=== PATIENT | male | born 1960 | race Caucasian/White ===

== ENCOUNTER → 2023-10-18 13:46 | Outpatient (REF) | payer OTHER, SELFPAY | LOC: HWRAD 13:46 | PROVIDERS: ATTENDING PHYSICIAN Internal Medicine | DX: Z87.891 Personal history of nicotine dependence (principal) | CPT/HCPCS: 71271 ==

== ENCOUNTER 2023-11-26 10:26 | Inpatient (IN) | payer OTHER, SELFPAY ==
[2023-11-26] VITALS (22 sets, daily range): BP systolic 135–179; BP diastolic 61–92; BMI 23.3
[2023-11-26 08:39] LABS: % Basophils 0.8 % (0-2); % Immature Granulocytes 0.8 % (0-0.5); % Monocytes 9.2 % (1.7-9.3); % Neutrophils 60.2 % (42.2-75.2); Absolute Eosinophils 0.3 10^3/uL (0-0.7); Absolute Lymphocytes 1.3 10^3/uL (1.2-3.4); Absolute Monocytes 0.5 10^3/uL (0.1-0.6); Absolute Neutrophils 3.2 10^3/uL (1.4-6.5); Hematocrit 36.9 % (39.0-52.0); Hemoglobin 12.7 g/dL (13.0-18.0); Mean Corp Hgb Conc. 34.4 g/dL (33.0-37.0); Mean Corpuscular Hgb 34.4 pg (27.0-31.0); Nucleated Red Blood Cells % 0 % (-); Platelet Count 189 10^3/uL (130-400); Red Blood Cell Count 3.69 10^6/uL (4.70-6.10); Red Cell Dist. Width 12.7 % (11.5-14.5); White Blood Cell Count 5.2 10^3/uL (4.8-10.8)
[2023-11-26 08:58] LABS: ALT (SGPT) 40 U/L (0-50); AST (SGOT) 48 U/L (17-59); Albumin 4.2 g/dl (3.5-5.0); Alkaline Phosphatase 82 U/L (38-126); Blood Urea Nitrogen 30 mg/dl (9-20); Calcium 9.6 mg/dl (8.4-10.2); Carbon Dioxide 26 mmol/L (22-30); Chloride 107 mmol/L (98-107); Glucose 117 mg/dl (70-99); Sodium 139 mmol/L (135-145); Total Bilirubin 0.9 mg/dl (0.2-1.3); Total Protein 6.6 g/dl (6.3-8.2); eGFR > 60.00
[2023-11-26 09:12] LABS: Troponin I 0.167 ng/ml
--- NOTE | 2023-11-26 09:34 | ED.GENMED ---
History of Present Illness
General
Chief Complaint: Chest Pain
Time Seen by Provider: 11/26/23 09:22
Travel History
Have you had any contact with someone who has COVID-19?: No
Do you have any symptoms of coronavirus? Fever > 100 degrees, chills, cough, shortness of breath, sore throat, loss of taste or smell, muscle aches, or headache?: No
History of Present Illness
History of Present Illness:
63-year-old male history of CAD with multiple cardiac stents, hypertension, hyperlipidemia, diabetes presenting with chest pressure radiating to bilateral arms starting last night. Patient states that chest pain woke patient up from sleep. Patient
states that chest pain lasted approximately 1 hour and then spontaneously resolved. Patient states that chest pain returned 3 times prompting ED evaluation. Patient states over the past 2 to 3 weeks he has been coming more short of breath with
exertion, better with rest. Patient denies any shortness of breath currently. Patient reports 3 out of 10 chest pain currently. Patient denies fever, chills, cough, or lower extremity swelling. Patient states that he feels overall fatigued.
notes that patient is having intermittent chest pain for the past 1 to 2 weeks but today was worse prompting ED evaluation. Cardiology [facility]
Past History
Past History
ED Past Medical History: CAD, Hypercholesterolemia and Other (sleep apnea)
ED Past Surgical History: None and Cardiac
Social History
Tobacco: Smoker
Alcohol: Binge drinker (Richie 12 drinks per week)
Personal:
Living: with family
Employment: Employed
Family History
Family History: Early CAD
Phy Exam
Physical Exam
Physical Exam:
General: Alert, no acute distress
Head: NCAT
Eyes: clear conjunctiva
Neck: supple
Cardiac: regular rate and rhythm, no murmur
Lungs: clear to auscultation bilaterally. No wheezes, rales, or rhonchi. Speaking full unlabored sentences. No respiratory distress.
Abdomen: soft, nondistended nontender. No rebound or guarding.
MSK: no lower extremity edema bilaterally. No deformity
Skin: warm, dry. Not diaphoretic
Neuro: Alert and oriented x3. no focal deficits
Scores
Heart Score for Chest Pain Patients
STEMI patient?: No
History: Highly Suspicious
ECG: Significant ST-Depression
Age: >45 - <65 years
Risk Factors: >/= 3 Risk Factors or History of CAD
Troponin: >/= 3 x Normal Limit
Heart Score for Chest Pain Patients: 9
Heart Score Risk: 72.7 % MACE over next 6 weeks
Course
Orders/Labs/Results
Orders:
Orders
11/26/23 08:11
Electrocardiogram (*1) Urgent
Reason for Study: Chest Pain
EKG- Treatment ONCE
11/26/23 08:29
Complete Blood Count/With Diff Urgent
Comprehensive Metabolic Panel Urgent
Troponin I Urgent
11/26/23 09:30
Aspirin 325 mg PO NOW STA
Nitroglycerin Sublingual [Nitrostat (Sublingual)] 0.4 mg SL [id number] PRN
11/26/23 09:34
Nitroglycerin Sublingual [Nitrostat (Sublingual)] 0.4 mg .ROUTE .STK-MED ONE
CXR [CR Chest Portable - 1 View] Urgent
Comment:
Reason For Exam: chest pain
Reason Study Needs to be Portable: Patient Unstable
11/26/23 09:36
Protime/PTT Urgent
11/26/23 09:45
Heparin 4,000 units IV NOW STA
Heparin 78260 Units/250 ml 25,000 units in 250 ml IV PER PROTOCOL
Weight to be used for heparin protocol in kilograms (kg):: 71.5
Protocol:: Cardiac Tx/Acute Coronary
PTT Goal Range to be used:: PTT 73 to 111 seconds
Order type:: Initial
INITIAL Infusion Dose (UNITS/KG/hr) & then follow protocol:: 12 units/kg/hr
Infusion Dose in UNITS/hr & then follow protocol (UNITS/hr):: 850
INFUSION RATE in mL/hr & then follow protocol (mL/hr):: 8.5
PTT less than or equal to 64 seconds:: Increase rate by 200 units/hr (+ 2 mL/hr)
PTT 64.1 to 72.9 seconds:: Increase rate by 100 units/hr (+ 1 mL/hr)
PTT 73 to 111 seconds:: Target Range. No change in rate.
PTT 111.1 to 130.9 seconds:: Decrease rate by 100 units/hr (- 1 mL/hr)
PTT 131 to 199.9 seconds:: HOLD for 1 hr. Then decrease rate by 200 units/hr (- 2 mL/hr)
PTT greater than or equal to 200 seconds:: HOLD for 2 hrs & Notify Provider. Then decrease by 200 units/hr (-
2 mL/hr)
Lab follow-up:: Each change, PTT q6h until 2 consecutive are therapeutic. Then PTT
daily.
Nursing to Place Non Medication Order As Directed
Physician Order: PTT 6 hours after initial start of Heparin infusion
Above order entered?: Yes
11/26/23 09:59
Admit/Transfer Patient As Directed
Co-Sign Provider:
Level of Care: Inpatient admission
Assign to:: IVU
Physician / Group: DEANGELO, Dr. SHIVAM Medrano
Diagnosis: NSTEMI
Reason for Hospitalization: NSTEMI
Expected length of stay greater than two midnights?: Yes
ELOS- Estimated Length of Stay in days: 2
I certify the patient meets the requirements for IP care: Yes
11/26/23 10:04
Code Status As Directed
Resuscitation Status: Full Code
Abnormal Lab Results
11/26/23
08:29
RBC 3.69 L 10^6/uL
(4.70-6.10)
Hgb 12.7 L g/dL
(13.0-18.0)
Hct 36.9 L %
(39.0-52.0)
MCV 100.0 H fL
(80.0-94.0)
MCH 34.4 H pg
(27.0-31.0)
Immature Gran % 0.8 H %
(0-0.5)
BUN 30 H mg/dl
(9-20)
Glucose 117 H mg/dl
(70-99)
Troponin I 0.167 H* ng/ml
11/26/23 08:29
11/26/23 08:29
Vital Signs
Initial and Last Documented VS:
Initial Vital Signs
Temp Pulse Resp BP Pulse Ox
98.0 F 66 16 179/85 98
11/26/23 08:17 11/26/23 08:17 11/26/23 08:17 11/26/23 08:17 11/26/23 08:17
Last Documented Vital Signs
Temp Pulse Resp BP Pulse Ox
98.0 F 68 17 153/64 98
11/26/23 08:17 11/26/23 11:00 11/26/23 11:00 11/26/23 11:00 11/26/23 11:00
MDM/Problems Addressed
MDM/Problems Addressed:
Patient presents to the Emergency Department with chest pain
Number and Complexity of Problems Addressed at the Encounter
� Chronic conditions affecting care: CAD, hypertension, hyperlipidemia, diabetes
� Acute Exacerbation and/or Progression of Chronic Illness:
� Differential Diagnosis includes: NSTEMI, unstable angina,
Amount and/or Complexity of Data to be Reviewed and Analyzed
� I performed an independent evaluation of and my interpretation is:
EKG: EKG shows normal sinus rhythm at 60 bpm with IN 110 QTc 430 biphasic T waves in V2 V3, ST depression V4 V5, no STEMI
CT:
Xrays:
Laboratory Studies: Labs reviewed, troponin 0.167 concerning for NSTEMI. hemoglobin 12.7 (baseline)
Other:
� Review of other/old records reveals: Last cardiac catheterization 2019 had stents placed in RCA
� Clinical information was obtained by an independent historian:
� Prescriptions/Medications Considered but not given:
� Further testing considered but not performed:
Risk of Complications and/or Morbidity or Mortality of Patient Management
� Social Determinants of health affecting care:
� Discussion with other providers (PCP, Hospitalists, Consultants, etc):
� Escalation of care including admission/observation vs risk of discharge considered: 63-year-old male history of hypertension, hyperlipidemia, diabetes, CAD with multiple cardiac stents presenting with chest pain radiating to bilateral arms
starting last night. Patient states that symptoms last for approximately 1 hour and then spontaneously resolved. EKG ischemic with [facility] and ST depression laterally. Elevated troponin. Ordered nitro, aspirin 324mg PO, heparin. Discussed with [facility]
cardiology who agreed with current management. Recommended admission, urgent cardiac cath. Discussed with Hospitalist.
*Critical Care Note
Total Time (30-74mins, 75-104mins- exclusive of procedures): Not Applicable
ED Attending Note
-
Portions of this chart may have been created with voice recognition software.� Occasional wrong word or��sound alike� substitutions may have occurred due to the inherent limitations of voice recognition software.
Discharge Plan
Departure
Patient Disposition: Admit
Date of Disposition: 11/26/23
Time of Disposition: 10:16
Presentation/result/management discussed w/ accepting MD/DO: Hospitalist
Discharge Problem:
Non-ST elevation [place] (NSTEMI)
Interventions
Interventions:
*Risk Screen - Suicide Last Done: 11/26/23 09:25
*General Assessment Last Done: 11/26/23 09:25
*Neglect/Abuse Screening Last Done: 11/26/23 09:25
*ED COVID-19 Vaccine History Last Done: 11/26/23 08:17
ED- Cardiac Assessment Last Done: 11/26/23 09:25
[2023-11-26] MEDS: NITROSTAT (SUBLINGUAL) 0.400000000000000022 MG SL (09:35)
[2023-11-26] MEDS: ASPIRIN 325 MG PO (09:41)
[2023-11-26 09:57] LABS: INR 0.96; PT 12.6 Sec (11.4-14.6)
[2023-11-26] MEDS: HEPARIN 4000 UNITS IV (10:06)
[2023-11-26] MEDS: HEPARIN 25000 UNITS/250 ML IV ×2 (10:06→19:43)
--- NOTE | 2023-11-26 10:06 | CON.CAR ---
Addendum entered and electronically signed by Kevin Medrano MD 11/26/23 10:59:
63-year-old man with known CAD and RCA PCI's in the past, last seen by Dr. Hand in April 2023. Active smoker, SGLT2 antagonist recommended in the past. Last week he had an episode of nocturnal chest discomfort. The night prior to admission
and into the morning he had 3 episodes of discomfort all severe, typical in nature lasting for half an hour to an hour or more and presented to the emergency department. In the emergency department, increase in baseline abnormal ST and T wave
changes most notable lateral ST depression. Pain-free after 1 sublingual nitroglycerin with initial troponin of 0.167.
Allergies: None
Outpatient medications: Aspirin 81 mg a day, atorvastatin 80 mg a day, lisinopril 20 mg a day, metformin thousand twice daily, metoprolol ER 25 mg daily
PMH: Obstructive sleep apnea, CAD, history of PCI, carotid stent, central retinal artery occlusion right eye, hypertension, hypertension lipidemia, diabetes
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
FH: Noncontributory
ROS: Negative except as above
154/78, pulse 73, afebrile, head neck exam unremarkable lungs clear, soft systolic murmur at apex, abdomen benign extremities without clubbing cyanosis or edema distal pulses intact, neuro nonfocal
Chest x-ray with NAD
EKG sinus rhythm, lateral ST segment depression biphasic T waves with U waves, PAC
BUN and creatinine 30 and 0.7, potassium 5, troponin 0.167
Cardiac catheterization March 2019: Normal left main, 25% ostial LAD and proximal stenosis, luminal irregularities of RCA, proximal and mid RCA stents are patent, ulcerated mid to distal 90% stenosis by followed by 90% thrombotic stenosis. EF
58%, 4 x 38 mm Synergy stent to mid to distal RCA
Echo 2018: Mild LVH, EF 60-65%, trace MR, MAC
Assessment:
Acute coronary syndrome, possible circumflex distribution
CAD
s/p 4.0 mm and 3.75 mm Xience to proximal and mid to distal RCA 02/27/12
s/p 4.0 mm Synergy to mid to distal RCA with patent previously placed proximal and mid RCA stents by cath 04/18/19
Carotid artery disease s/p LICA stent 05/01/15
HTN
HLD
GEORGI on CPAP
Active smoker
Daily ETOH use
Plan:
He presents with ACS, known CAD with prior PCI's of RCA with nonobstructive LAD and circumflex coronary artery disease, longstanding diabetes, smoking, hypertension, hyperlipidemia. Will proceed with cardiac catheterization.
Aspirin and heparin.
Original Note:
Consultation
Consultation Request
Date/Time Consultation Requested: 11/26/23
Date/Time Consultation Performed: 11/26/23
Requesting Provider: Dr. Porter in the ER
Performing Provider: Dr. SHIVAM Medrano
Reason for Consultation: Chest pain, elevated Troponin
Medical History
-
History of Present Illness:
Patient came to [facility] today with chest pain and cardiology has been consulted to evaluate. Patient has a h/o CAD with ACS prompting cath and RCA PCI in 2011. Patient then had chest pain again in 2019 and by cath his previously placed RCA stents were
patent, but he had new distal RCA disease that was also then stented. Patient has not had recurrent symptoms until about 2 weeks ago when he started wit MONTIEL and chest pressure with activity that improved with rest. No resting pain or SOB. Patient
awoke with chest pain last night that resolved without specific intervention last night. Pain then recurred a few times and was ongoing when he came to [facility] this AM. Patient was given NTG SL x1 and is now pain free in [facility].
PMH:
CAD
s/p 4.0 mm and 3.75 mm Xience to proximal and mid to distal RCA 02/27/12
s/p 4.0 mm Synergy to mid to distal RCA with patent previously placed proximal and mid RCA stents by cath 04/18/19
Carotid artery disease s/p LICA stent 05/01/15
HTN
HLD
GEORGI on CPAP
Active smoker
Daily ETOH use
Past Medical History
Past Medical History: Other (in HPI)
Past Surgical History: Cardiac (RCA PCI 02/2012) and Other (LICA stent 03/2015)
Social History
Tobacco: Smoker
Alcohol: Daily
Drug: None
Personal:
Living: With Family
Family History
Family History: Cancer and Other (dementia, CVA)
Allergies / Home Medications
Allergy/AdvReac Type Severity Reaction Status Date / Time
No Known Drug Allergies Allergy Unknown Verified 11/26/23 08:18
�Medication �Instructions �Recorded �Confirmed �Type
aspirin 81 mg chewable tablet 81 mg PO DAILY 05/11/15 04/18/19 History
(Murtaza Chewable Low Dose Aspirin)
atorvastatin 80 mg tablet 80 mg PO HS 05/11/15 04/18/19 History
insulin detemir U-100 100 unit/mL 18 units SC HS 05/11/15 04/18/19 History
subcutaneous solution (Levemir
U-100 Insulin)
lisinopril 20 mg tablet 20 mg PO BID #180 tabs 04/18/19 Rx
metformin 500 mg tablet 1,000 mg (2 x 500 mg) PO BID ##0 04/18/19 04/18/19 Rx
metoprolol succinate 25 mg 25 mg PO DAILY 04/18/19 Rx
tablet,extended release 24 hr
ticagrelor 90 mg tablet (Brilinta) 90 mg PO BID #180 tabs 04/18/19 Rx
Review of Systems
-
History Source: Patient and Family ( sitting bedside)
All other systems: Negative unless noted
Physical Exam
Vital Signs
Temp Pulse Resp BP Pulse Ox
98.0 F 73 11 154/78 96
11/26/23 08:17 11/26/23 09:45 11/26/23 09:45 11/26/23 09:32 11/26/23 09:45
GEN: NAD. AAOx3
HEENT: EOMI, MMM
LUNGS: CTA B/L, no wheezes or rales
CV: Reg, S1/S2, 1/6 syst LSB
ABD: soft, BS+, NT, ND
EXT: No clubbing, cyanosis, lesions or edema B/L
NEURO: Gross non-focal
SKIN: Warm, dry and pink. No rash
Lab Results
11/26/23 08:29
11/26/23 08:29
Troponin I 0.167 ng/ml H* 11/26/23 08:29
Impression / Plan
-
PCP: Dr. Aria Kang
Primary supervisor grower: Dr. Hand
Assessment:
Chest pain
Elevated Troponin, likely NSTEMI
CAD
s/p 4.0 mm and 3.75 mm Xience to proximal and mid to distal RCA 02/27/12
s/p 4.0 mm Synergy to mid to distal RCA with patent previously placed proximal and mid RCA stents by cath 04/18/19
Carotid artery disease s/p LICA stent 05/01/15
HTN
HLD
GEORGI on CPAP
Active smoker
Daily ETOH use
Echo 04/18/19: Mild concentric LVH, EF 60-65%, trace MR, mild MAC
Plan:
-Patient came to [facility] today with chest pain and cardiology has been consulted to evaluate. Patient has a h/o CAD with ACS prompting cath and RCA PCI in 2011. Patient then had chest pain again in 2019 and by cath his previously placed RCA stents were
patent, but he had new distal RCA disease that was also then stented. Patient has not had recurrent symptoms until about 2 weeks ago when he started wit MONTIEL and chest pressure with activity that improved with rest. No resting pain or SOB. Patient
awoke with chest pain last night that resolved without specific intervention last night. Pain then recurred a few times and was ongoing when he came to [facility] this AM. Patient was given NTG SL x1 and is now pain free in [facility].
-Pain presents with resting pain and elevated Troponin concerning for NSTEMI. Initial Troponin 0.167, will trend
-Heparin gtt ordered
-Patient takes aspirin 81 mg daily and was ordered aspirin 325 mg PO x1 in the ER
-Outpatient dose of Toprol XL 25 mg daily ordered, follow tele, resting HR in the ER is 66 in SR
-ECG reviewed by me with lateral ST depressions
-Preliminary orders placed including for basal bolus insulin protocol and HgbA1c. Metformin will be held for cath
-Check CVE in AM. Cont atorvastatin 80 mg daily
-Cre and BP stable, cont usual dose of lisinopril 20 mg BID
-Check echo, ordered
[2023-11-26 10:10] LABS: APTT 24.1 Sec (23.4-35.0)
--- NOTE | 2023-11-26 11:22 | HPS.HSE ---
Family Physician
-
Family Physician: Aria Kang DO
Chief Complaint
-
chest pain
History of Present Illness
63-year-old male past medical history of extensive coronary artery disease is presenting from home with chest pain. Patient said he woke up from sleep with chest pain. States similar symptoms happened x 2 last week. States the chest pain lasted
approximately 1 hour and then spontaneously resolved. Chest pain reoccurred multiple times and thus he decided come into the ER. Denies any shortness of breath or lower extremity edema. Denies any PND orthopnea. Upon my examination evaluation
patient states chest pain has resolved. Does state of extreme stress at work. Does heavy lifting at work. Smokes half a pack of cigarettes daily. Drinks alcohol daily. Has history of 6 times in the past. Currently denies any nausea vomiting
headache abdominal pain. States currently he started this did not get much sleep overnight.
Medical History
Past Medical History
Past Medical History: Reports Other
Additional Past Medical History:
Primary HTN
HLD
CAD s/p stents x 6
DM
Tobacco abuse
Etoh abuse
Past Surgical History: Reports Other
Additional Past Surgical History:
CAD s/p stents
Social History
Tobacco: Smoker
Alcohol: Daily
Drug: None
Personal:
Living: With Family
Family History
Family History: Not pertinent
Allergies / Home Medications
Allergies reflects when Allergies were last updated in [facility].
Home Medications with original date entered in [facility]
Allergy/Medication List:
Allergies
Allergy/AdvReac Type Severity Reaction Status Date / Time
No Known Drug Allergies Allergy Unknown Verified 11/26/23 08:18
Home Medications
aspirin 81 mg chewable tablet (Murtzaa Chewable Low Dose Aspirin) 81 mg PO DAILY 05/11/15
atorvastatin 80 mg tablet 80 mg PO HS 05/11/15
lisinopril 20 mg tablet 20 mg PO BID #180 tabs 04/18/19
metformin 500 mg tablet 1,000 mg (2 x 500 mg) PO BID ##0 04/18/19
metoprolol succinate 25 mg tablet,extended release 24 hr 25 mg PO DAILY 04/18/19
Review of Systems
-
History Source: Patient and Family
A 12 point ROS was completed and negative except as noted: Yes
Physical Exam
Vital Signs
Vital Signs
Temp Pulse Resp BP Pulse Ox
98.0 F 68 17 153/64 98
11/26/23 08:17 11/26/23 11:00 11/26/23 11:00 11/26/23 11:00 11/26/23 11:00
Physical Exam
General: Well Developed, Well Nourished and No Apparent Distress
HEENT: NormoCephalic, Moist mucous membranes and Atraumatic
Respiratory: Clear
Cardiac: S1/S2 and Regular Rhythm; No Murmur or Rub
GI: Soft, Non Tender, Non Distended and Normal Bowel Sounds; No Organomegaly
Rectal: Deferred by Provider
Musculoskeletal: No Clubbing, No Cyanosis and No Edema
Skin: No Rash
Neuro: Awake, AO x 3, No Motor Deficits and Nonfocal/grossly intact
Psych: Calm
Laboratory Results
-
11/26/23 08:29
11/26/23 08:29
Laboratory Results
PT 12.6 Sec (11.4-14.6) 11/26/23 09:36
INR 0.96 11/26/23 09:36
APTT 24.1 Sec (23.4-35.0) 11/26/23 09:36
Total Bilirubin 0.9 mg/dl (0.2-1.3) 11/26/23 08:29
AST 48 U/L (17-59) 11/26/23 08:29
ALT 40 U/L (0-50) 11/26/23 08:29
Alkaline Phosphatase 82 U/L (38-126) 11/26/23 08:29
Troponin I 0.167 ng/ml H* 11/26/23 08:29
Impression/Plan
-
#NSTEMI
#CAD status post stents x6
N.p.o. with plan for cardiac catheterization
Cardiac cath reported multivessel coronary artery disease
CT surgery has been consulted
Check A1c and lipid panel
As needed pain medication
Heparin per cardiology
Antiplatelet agents on hold
ECHO pending
Await CT surgery further input
#Primary hypertension
Continue lisinopril and beta-angy
#Hyperlipidemia
Continue with statin
Check lipid panel in the morning
#Diabetes mellitus type 2
Hold metformin
A1c and Accu-Cheks
#Tobacco abuse
Offered nicotine patch but patient refused
#Daily Alcohol usage
#Alcohol abuse
Alcohol withdrawal protocol
DVT prophylaxis on heparin infusion
Full code
Discussed with spouse at bedside in detail
I spent a total of 78 minutes with the patient or on the floor. More than 50% of this time involved counseling and coordination of care.
--- NOTE | 2023-11-26 13:32 | ITS.CL.CATH ---
[employer] - Catheterization
Cardiac Catheterization
Procedure Report:
CARDIAC CATHETERIZATION REPORT
Date of Procedure: 11/26/2023
Referring: Nereyda Medraon M.D.
INDICATION: Non-ST elevation myocardial infarction, known coronary artery disease.
PROCEDURE:
1. Left heart catheterization
2. Coronary angiography
ACCESS:
6 [place] right radial artery.
CATHETERS:
1. 5 [place] JR4.
2. 5 [place] JL 3.5.
HEMODYNAMIC DATA
Weight (kg): 71.2
AO (s/d/x, mmHg): 151/78/105
LV (s/x mmHg): 152/22
LEFT VENTRICULOGRAPHY: Not performed.
CORONARY ANGIOGRAPHY
Dominance: Right.
Left Main: Normal size, bifurcating vessel. There is a densely calcified, 70-80% lesion in the distal aspect of the left main leading into the origin of the LAD and circumflex.
LAD: Normal size vessel giving rise to 1 major diagonal. There is a 70% ostial lesion as an extension of the left main lesion. There are luminal irregularities elsewhere.
Ramus: Congenitally absent.
Circumflex: Normal size, nondominant vessel giving rise to 2 obtuse marginals. There is an 80% ostial lesion as an extension from the left main lesion. There are minor luminal irregularities elsewhere.
RCA: Large size, dominant vessel. The vessel is densely calcified and is flush occluded at its origin. The RPDA and distal RCA are supplied by collaterals from the LAD and circumflex.
INTERVENTION(S)
None.
Closure Device: Vascular band.
Radiation (mGy): 292.97
DAP (cm2.Gy): 16.5447
Fluoroscopy time (minutes): 4.2
Sedation time (minutes): 15
CONCLUSIONS
1. Right dominant circulation with flush occlusion of the RCA, a 70-80% lesion in the distal aspect of the left main extending into a 70% ostial LAD lesion and an 80% ostial circumflex lesion.
2. Moderately elevated filling pressures (LVEDP = 22 mmHg at 71.2 kg).
RECOMMENDATIONS:
1. Expectant management after cardiac catheterization via right radial approach.
2. Limited weight bearing on the right wrist for one week.
3. Consultation with CT surgery regarding optimal revascularization strategy.
4. Hold antiplatelet therapy in light of likely surgical strategy.
Copy to: Nereyda Medrano M.D., Jairo Hand M.D., Aria Kang D.Irish.
Jairo Cho DO, FACC, FACP
[2023-11-26] MEDS: NSS 1000 IV (13:46)
--- NOTE | 2023-11-26 14:16 | CONSULT.CT ---
Consultation
-
Date/Time Consultation Requested: 11/26/23 1400
Date/Time Consultation Performed: 11/26/23 1417
Requesting Provider: Marquis SCHOFIELD
Performing Provider: Carrillo MENSAH for Job IRBY
Reason for Consultation: CABG eval
Patient History
Physicians
Outpatient Marine Equipment Sales Engineer: Dr. Hand
Inpatient Marine Equipment Sales Engineer: Froylan Medrano
History of Present Illness
63-year-old male with past medical history significant for CAD s/p stents in RCA in 2011 and 2018, carotid artery disease status post LICA stent in 2014, HTN, HLD, GEORGI on CPAP, active smoker and daily alcohol use presented to [facility] on
11/25 with complaints of chest pain that woke him up last night a total of three times. He said each episode would last one hour and one the CP resolved he would go back to sleep. The chest pain did resolve without intervention, however, pain then
reoccurred patient came into the ER. While in the ER patient was given 1 sublingual nitro and had an elevated troponin of 0.167 with increased in baseline ST depressions. Patient was subsequently taken to the cardiac Peoplesoft Consultant by Dr. Kincaid and
found right dominant circulation with flush occlusion of the RCA, a 70-80% lesion in the distal aspect of the left main extending into a 70% ostial LAD lesion and an 80% ostial circumflex lesion. CT surgery was consulted for surgical evaluation.
Past Medical History
Past Medical History: Other
CAD
s/p 4.0 mm and 3.75 mm Xience to proximal and mid to distal RCA 02/27/12
s/p 4.0 mm Synergy to mid to distal RCA with patent previously placed proximal and mid RCA stents by cath 04/18/19
HTN
HLD
GEORGI on CPAP
Active smoker
Daily ETOH use
Past Surgical History
Past Surgical History: PCI/Stent
Carotid artery disease s/p LICA stent 05/01/15
Family History
Mother: Cause of (breast cancer)
Father: Cause of ([place]/ Dementia)
Family Medical History: CAD
Social History
Alcohol: Daily
Drug: None
Tobacco: Smoker
Personal:
Living: With Spouse
Employment: Employed
Allergies
Allergy/AdvReac Type Severity Reaction Status Date / Time
No Known Drug Allergies Allergy Unknown Verified 11/26/23 08:18
Home Medications
�Medication �Instructions �Recorded �Confirmed �Type
aspirin 81 mg chewable tablet 81 mg PO DAILY 05/11/15 11/26/23 History
(Murtaza Chewable Low Dose Aspirin)
atorvastatin 80 mg tablet 80 mg PO HS 05/11/15 11/26/23 History
lisinopril 20 mg tablet 20 mg PO BID #180 tabs 04/18/19 11/26/23 Rx
metformin 500 mg tablet 1,000 mg (2 x 500 mg) PO BID ##0 04/18/19 11/26/23 Rx
metoprolol succinate 25 mg 25 mg PO DAILY 04/18/19 11/26/23 Rx
tablet,extended release 24 hr
Review of Systems
-
History Source: Patient
General: Reports Fatigue and Sleep Disturbance
HEENT: Reports No Symptoms
Respiratory: Reports SOB and MONTIEL
Cardiac: Reports CAD
Abdomen/GI: Reports No Symptoms
: Reports No Symptoms
Musculoskeletal: Reports No Symptoms
Skin: Reports No Symptoms
Neurological: Reports No Symptoms
Vascular: Reports No Symptoms
Physical Exam
Vital Signs
Temp 98.0 F 11/26/23 08:17
Temp route: Oral 11/26/23 08:17
Pulse 55 11/26/23 14:00
Resp Rate 19 11/26/23 14:00
Blood pressure 163/74 11/26/23 14:00
Blood pressure extremity used: Left upper arm 11/26/23 13:35
Position: Lying 11/26/23 13:35
MAP (cuff-Maribel Monitor) 97 11/26/23 14:00
SaO2 98 11/26/23 14:05
Oxygen Mode of Delivery Room air 11/26/23 14:05
Acceptable pain level during hospitalization? 0 11/26/23 09:25
Can the patient verbally communicate their pain? Yes 11/26/23 14:05
Actual Weight 71.5 kg 11/26/23 09:25
Body Mass Index (BMI) 23.3 11/26/23 09:25
Labs
11/26/23 08:29
11/26/23 08:29
PT 12.6 Sec (11.4-14.6) 11/26/23 09:36
APTT 24.1 Sec (23.4-35.0) 11/26/23 09:36
Troponin I 0.167 ng/ml H* 11/26/23 08:29
Exam
General: Well Developed and Well Nourished
HEENT: Normocephalic
Respiratory: Clear
Cardiac: S1/S2
GI: Soft and Non Tender
Rectal: Deferred by Provider
Skin: Warm and Dry
Neuro: AO x 3
Lymph: No Lymphadenopathy
Psych: Calm
Assessment / Plan
-
63-year-old male with past medical history listed above presented to [facility] after multiple events of chest pain overnight. Patient was subsequently taken to the cardiac Peoplesoft Consultant in which multivessel disease was found. CT surgery was
consulted for surgical evaluation.
#CAD
-Patient's case will be discussed with attending physician. Further details regarding surgical timing intervention will be determined after attending physicians full evaluation
-Routine preoperative cardiothoracic surgery orders will be initiated.
-STS risk stratification score will be calculated after preoperative testing is complete
-Continue nitroglycerin and heparin gtt per cardiology
[2023-11-26 14:37] LABS: Glucose - Point of Care 170 mg/dl (70-99)
--- NOTE | 2023-11-26 16:01 | CM ---
Chart reviewed. Patient is independent of ADLS, lives with his in a 2 STH, 1 BENNIE, 0 DME. Patient being worked up for a CABG. Plan will be for the patient to return home with CT Transitional Care RN. Patient is refusing substance abuse
counseling. CM to follow
[2023-11-26] MEDS: NOVOLOG FLEXPEN-MODERATE RESISTANCE SC (16:42)
--- NOTE | 2023-11-26 17:54 | PTCARENOTE ---
patient arrived from clinical lab scientist with right R band intact, distal pulses palpable. monitor shows NSR, VSS., patient able to void, urine drug abuse screen obtained and sent to lab. patient placed on MSAS due to ETOH abuse and provider notified. patient
has IVF @ 107 cc/hr for 3 hours. will start IV heparin drip at 1930 tonight as ordered. 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 patient does have sleep apnea but has not worn his CPAP, due to a recall 3 years ago. patient is very
pleasant and cooperative, at bedside. oriented to room and surroundings.
[2023-11-26 18:11] LABS: Amphetamines Negative (Negative); Barbiturates Negative (Negative); Benzodiazepines Negative (Negative); Buprenorphine Negative (Negative); Cocaine Negative (Negative); Marijuana Positive (Negative); Methadone Negative (Negative); Methamphetamines Negative (Negative); Opiates Negative (Negative); Phencyclidine Negative (Negative); Tricyclic Antidepressants Negative (Negative)
--- NOTE | 2023-11-26 18:20 | PTCARENOTE ---
urine came back positive for marijuana, patient admits that he smokes as needed.
[2023-11-26] MEDS: ZESTRIL 20 MG PO (19:54)
[2023-11-26] MEDS: THIAMINE INJECTION 200 MG IV (19:54)
[2023-11-26] MEDS: TYLENOL 650 MG PO (19:54)
--- NOTE | 2023-11-26 21:52 | PTCARENOTE ---
Pt. has no complaints of chest pain / discomfort so far this shift, VSS, NSR on the monitor. Right radial cath site dressing CDI, no hematoma, palpable radial pulse. Did complain of some soreness at site and headache, Tylenol given as ordered.
Heparin drip restarted ~1929 as per order. Educated about blood thinner's purpose and need for frequent monitoring/lab work. Pt. not happy about having frequent labs drawn, encouragement given. No S&S of ETOH withdrawal, pt. currently resting
quietly.
[2023-11-26 22:07] LABS: Glucose - Point of Care 115 mg/dl (70-99)
[2023-11-26] MEDS: LIPITOR 80 MG PO (22:17)
[2023-11-27] VITALS (7 sets, daily range): BP systolic 109–176; BP diastolic 63–87
[2023-11-27 02:29] LABS: Hematocrit 34.6 % (39.0-52.0); Hemoglobin 12.2 g/dL (13.0-18.0); Mean Corp Hgb Conc. 35.3 g/dL (33.0-37.0); Mean Corpuscular Hgb 34.5 pg (27.0-31.0); Mean Corpuscular Volume 97.7 fL (80.0-94.0); Mean Platelet Volume 10.4 fL (7.4-10.4); Platelet Count 163 10^3/uL (130-400); Red Blood Cell Count 3.54 10^6/uL (4.70-6.10); Red Cell Dist. Width 12.5 % (11.5-14.5); White Blood Cell Count 4.9 10^3/uL (4.8-10.8)
[2023-11-27 02:42] LABS: APTT 36.5 Sec (23.4-35.0); INR 1.01; PT 13.1 Sec (11.4-14.6)
[2023-11-27 02:48] LABS: ALT (SGPT) 37 U/L (0-50); AST (SGOT) 42 U/L (17-59); Albumin 3.8 g/dl (3.5-5.0); Alkaline Phosphatase 72 U/L (38-126); Blood Urea Nitrogen 21 mg/dl (9-20); Calcium 9.1 mg/dl (8.4-10.2); Carbon Dioxide 21 mmol/L (22-30); Chloride 111 mmol/L (98-107); Direct Bilirubin 0.3 mg/dl (0.0-0.4); Estimated Creatinine Clearance > 125 ml/min; Glucose 112 mg/dl (70-99); HDL Cholesterol 99 mg/dl; LDL Cholesterol, Calculated 39 mg/dl; Magnesium 1.8 mg/dl (1.6-2.3); Potassium 4.4 mmol/L (3.5-5.1); Sodium 138 mmol/L (135-145); Total Bilirubin 1.3 mg/dl (0.2-1.3); Total Cholesterol 156 mg/dl (50-199); Total Protein 6.2 g/dl (6.3-8.2); Triglyceride 90 mg/dl (10-149); Very Low Density Lipoprotein 18 mg/dl (0-30); eGFR > 60.00
[2023-11-27 03:17] LABS: Troponin I 0.819 ng/ml
[2023-11-27 06:18] LABS: B.E. -1.3 mmol/L; HCO3 23.7 mmol/L (21-28); O2 Saturation % 96.7 % (94-98); PCO2 40 mmHg (35-48); PO2 76 mmHg (83-108); pH 7.38 (7.35-7.45)
[2023-11-27 06:22] LABS: O2 Therapy ROOM AIR
[2023-11-27 07:35] LABS: Glucose - Point of Care 143 mg/dl (70-99)
[2023-11-27] MEDS: NOVOLOG FLEXPEN-MODERATE RESISTANCE SC ×2 (07:54→12:44)
[2023-11-27] MEDS: TOPROL XL 25 MG PO (08:26)
[2023-11-27] MEDS: LOW STRENGTH ASPIRIN 81 MG PO (08:26)
[2023-11-27] MEDS: FOLVITE 1 MG PO (08:27)
[2023-11-27] MEDS: ZESTRIL 20 MG PO (08:27)
[2023-11-27] MEDS: THIAMINE INJECTION 200 MG IV ×2 (08:28→19:43)
[2023-11-27] MEDS: FLUSH (NSS) 1 FLUSH IV (08:28)
[2023-11-27 08:56] LABS: Glycohemoglobin (HgbA1c) 6.6 % (4.0-5.6)
--- NOTE | 2023-11-27 08:57 | W.PN.UPDATE ---
Update Note
Progress Note Update
Ongoing pre-op work up. Tentative surgery date is 11/28/[address] King.
--- NOTE | 2023-11-27 09:52 | PTCARENOTE ---
Received patient this morning resting in bed, at the bedside. IV heparin infusing at 1050 units/hr, patient sent for CT of the chest.
[2023-11-27 10:39] LABS: APTT 47.7 Sec (23.4-35.0)
--- NOTE | 2023-11-27 10:40 | CM ---
Chart reviewed. Patient is independent of ADLS, lives with his in a 2STH, 1 BENNIE, 0 DME. Reviewed preoperative and postoperative instructions and restrictions, along with showering guidelines. Patient is agreeable to a home visit by CT
Transitional RN. CM to follow
[2023-11-27 10:53] LABS: Troponin I 0.533 ng/ml
[2023-11-27 12:25] LABS: Glucose - Point of Care 124 mg/dl (70-99)
--- NOTE | 2023-11-27 13:13 | W.PN.CARDCBS ---
Today's Communication / Plan
-
Continue IV heparin, aspirin, Toprol, lisinopril, and atorvastatin.
Plan for bypass surgery this week
Impression / Plan
-
PCP: Dr. Aira Kang
Primary asset protection lead: Dr. Hand
Assessment:
NSTEMI
LMain dx
CAD
s/p 4.0 mm and 3.75 mm Xience to proximal and mid to distal RCA 02/27/12
s/p 4.0 mm Synergy to mid to distal RCA with patent previously placed proximal and mid RCA stents by cath 04/18/19
Carotid artery disease s/p LICA stent 05/01/15
HTN
HLD
GEORGI on CPAP
Active smoker
Daily ETOH use
Echo 04/18/19: Mild concentric LVH, EF 60-65%, trace MR, mild MAC
cath 11/25/23: 80% distal left main extending into a 70% ostial LAD and 80% circumflex lesion.
Plan:
nitriles lab technician results reviewed with patient. He was found to have an 80% left main disease. Plan will be to proceed with CT surgery evaluation for bypass surgery.
Check echocardiogram.
Continue heparin, aspirin, metoprolol, lisinopril, and atorvastatin.
Continue insulin for diabetes.
Nicotine patch offered to patient
Progress Note - Clip And Hanger Attacher
Subjective
Date of Service: November 27, 2023
Feels well with no chest pains or shortness of breath.
Objective
Labs:
11/27/23 02:22
11/27/23 02:22
Labs
Hgb 12.2 g/dL (13.0-18.0) L 11/27/23 02:22
Hct 34.6 % (39.0-52.0) L 11/27/23 02:22
Plt Count 163 10^3/uL (130-400) 11/27/23 02:22
PT 13.1 Sec (11.4-14.6) 11/27/23 02:22
INR 1.01 11/27/23 02:22
APTT 47.7 Sec (23.4-35.0) H 11/27/23 10:17
Sodium 138 mmol/L (135-145) 11/27/23 02:22
Potassium 4.4 mmol/L (3.5-5.1) 11/27/23 02:22
BUN 21 mg/dl (9-20) H 11/27/23 02:22
Creatinine 0.5 mg/dL (0.7-1.3) L 11/27/23 02:22
Glucose 112 mg/dl (70-99) H 11/27/23 02:22
Troponins
11/26/23 11/27/23 11/27/23
08:29 02:22 10:17
Troponin I 0.167 H* 0.819 H* 0.533 H* D
Vital Signs and I&O:
Vital Signs
Temp Pulse Resp BP Pulse Ox
98.6 F 63 18 157/67 99
11/27/23 07:20 11/27/23 12:52 11/27/23 12:54 11/27/23 12:52 11/27/23 12:54
Vital Signs
Temp Pulse Resp BP Pulse Ox
98.6 F 63 18 157/67 99
11/27/23 07:20 11/27/23 12:52 11/27/23 12:54 11/27/23 12:52 11/27/23 12:54
Intake & Output
11/25/23 11/26/23 11/27/23 11/28/23
06:59 06:59 06:59 06:59
Intake Total 580 / 580 480 / 480
Balance 580 / 580 480 / 480
Physical Exam
Physical Exam
GEN: No distress, awake, Ox3
HEENT: supple, anicteric, mmm
LUNGS: CTA, no wheezes/rales
CV: Reg, S1/S2, 1/6 syst LSB, no gallop
ABD: soft, BS+, NT/ND
EXT: No edema
NEURO: Gross non-focal
SKIN: No rash
--- NOTE | 2023-11-27 13:16 | W.PN.HOSP.TC ---
Today's Communication/Plan
-
With goal-directed medical therapy with aspirin, heparin, lisinopril
Adjust Lantus as seems plan for OR tentative tomorrow
Assessment / Plan
Assessment / Plan
General: Well Developed, Well Nourished and No Apparent Distress
HEENT: NormoCephalic, Moist mucous membranes and Atraumatic
Respiratory: Clear
Cardiac: S1/S2 and Regular Rhythm; No Murmur or Rub
GI: Soft, Non Tender, Non Distended and Normal Bowel Sounds; No Organomegaly
Musculoskeletal: No Clubbing, No Cyanosis and No Edema
Skin: No Rash
Neuro: Awake, AO x 3, No Motor Deficits and Nonfocal/grossly intact
Psych: Calm
#NSTEMI
#CAD status post stents x6
Status post cardiac catheterization with multivessel coronary artery disease
CT surgery was consulted
Preop testing ordered and started
Remains on heparin infusion
Echocardiogram pending
Await further CT surgery recs
Remains chest pain-free
#Primary hypertension
Continue lisinopril and beta-angy
#Hyperlipidemia
Continue with statin
LDL at 39.
#Diabetes mellitus type 2
Hold metformin
A1c is 6.6
Continue with Accu-Cheks and 10 Lantus plan for tentative OR tomorrow
#Tobacco abuse
Offered nicotine patch but patient refused
#Daily Alcohol usage
#Alcohol abuse
Alcohol withdrawal protocol
DVT prophylaxis on heparin infusion
Full code
Discussed with spouse at bedside in detail
Anticipated Discharge: > 48 hours
Subjective/Interval History
-
Date of Service: November 27, 2023
no overnight events
Objective Data
-
Labs:
Laboratory Results
11/27/23 11/27/23 11/27/23
02:22 05:58 10:17
WBC 4.9
Hgb 12.2 L
Hct 34.6 L
Plt Count 163
PT 13.1
INR 1.01
APTT 36.5 H 47.7 H
HCO3 23.7
Sodium 138
Potassium 4.4
Chloride 111 H
Carbon Dioxide 21 L
BUN 21 H
Creatinine 0.5 L
Glucose 112 H
Calcium 9.1
Total Bilirubin 1.3
AST 42
ALT 37
Alkaline Phosphatase 72
11/27/23
16:55
WBC
Hgb
Hct
Plt Count
PT
INR
APTT Pending
HCO3
Sodium
Potassium
Chloride
Carbon Dioxide
BUN
Creatinine
Glucose
Calcium
Total Bilirubin
AST
ALT
Alkaline Phosphatase
Vital Signs:
Vital Signs
Temp Pulse Resp BP Pulse Ox
98.6 F 63 18 157/67 99
11/27/23 07:20 11/27/23 12:52 11/27/23 12:54 11/27/23 12:52 11/27/23 12:54
I&O
11/26/23 11/27/23 11/28/23
06:59 06:59 06:59
Intake Total 580 / 580 480 / 480
Balance 580 / 580 480 / 480
Data Reviewed
-
Total Time Spent with Patient (in minutes): 55
--- NOTE | 2023-11-27 16:00 | W.PN.UPDATE ---
Update Note
Progress Note Update
Pleasant 63 y/o admitted with cp and nstemi
hx/o pci/stent
Pt seen and examined
present for discussion
Cath reviewed
Has left main/total rca
Needs lad/om/pda
Risks, complications, benefits and alternatives reviewed
All questions answered
Plan cabg in am pending carotid us
--- NOTE | 2023-11-27 16:43 | W.PN.UPDATE ---
Update Note
Progress Note Update
Procedure Type:�Isolated CABG
PERIOPERATIVE OUTCOME ESTIMATE %
Operative Mortality 0.922%
Morbidity & Mortality 5%
Stroke 0.947%
Renal Failure 0.464%
Reoperation 2.3%
Prolonged Ventilation 3.18%
Deep Sternal Wound Infection 0.139%
Long Hospital Stay (>14 days) 3.02%
Short Hospital Stay (<6 days)* 60.3%
Clinical Summary
Planned Surgery: Isolated CABG, Urgent, First cardiovascular surgery
Demographics: 63 year old, White, male, 71.5kg, 175cm, BMI: 23.4 kg/m�
Lab Values: Creatinine: 0.7 mg/dL, Hematocrit: 36.9%, WBC Count: 5.2 10�/�L, Platelet Count: 206742 cells/�L
PreOp Medications: FER Inhibitors/ARBs <=48 hrs
Substance Abuse: Current smoker, Alcohol use: >=8 drinks/week, Illicit Drug Use
Risk Factors / Comorbidities: Diabetes Mellitus , Hypertension, Family Hx of CAD
Pulmonary RF: Mild CLD
Vascular RF: Prior Carotid Surgery
Coronary Artery Disease: 3 vessels diseased, Left Main Stenosis >=50%, Proximal LAD Stenosis >=70%, Non-ST Elevation MO, MO: 1 to 7 Days
Valve Disease: Trivial/Trace AR, Trivial/Trace MR, Trivial/Trace TR
[2023-11-27 18:07] LABS: Glucose - Point of Care 161 mg/dl (70-99)
[2023-11-27 18:17] LABS: APTT 62.7 Sec (23.4-35.0)
[2023-11-27] MEDS: NOVOLOG FLEXPEN-MODERATE RESISTANCE 1 UNITS SC (18:19)
[2023-11-27] MEDS: HEPARIN 25000 UNITS/250 ML IV (18:22)
[2023-11-27 22:42] LABS: Glucose - Point of Care 139 mg/dl (70-99)
[2023-11-27] MEDS: LIPITOR 80 MG PO (22:58)
[2023-11-27] MEDS: LANTUS 0.100000000000000006 UNITS SC (22:58)
--- NOTE | 2023-11-27 23:55 | PTCARENOTE ---
Pt received start of shift, HR SR w/ PACs. Heparin infusing at 1450u/hr. Pt updated on plan of care for the night and what CVOR prep entails. Pt states no further questions at this time. CVOR prep completed: pt clipped, showered w/ CHG, new
gown/linens/socks, new BP cuff, bed wiped down. Pt denies any CP, SOB, or lightheadedness/dizziness. Informed to notify RN if any changes, call silver within reach.
[2023-11-28] VITALS (19 sets, daily range): BP systolic 85–172; BP diastolic 49–90; BMI 21.8
[2023-11-28 02:10] LABS: % Basophils 0.8 % (0-2); % Eosinophils 4.8 % (0-6); % Immature Granulocytes 0.8 % (0-0.5); % Lymphocytes 23.2 % (20.5-51.1); % Neutrophils 59.4 % (42.2-75.2); Absolute Eosinophils 0.3 10^3/uL (0-0.7); Absolute Lymphocytes 1.2 10^3/uL (1.2-3.4); Absolute Monocytes 0.6 10^3/uL (0.1-0.6); Absolute Neutrophils 3.1 10^3/uL (1.4-6.5); Hematocrit 34.9 % (39.0-52.0); Hemoglobin 12.2 g/dL (13.0-18.0); Mean Corpuscular Hgb 34.1 pg (27.0-31.0); Mean Corpuscular Volume 97.5 fL (80.0-94.0); Mean Platelet Volume 10.1 fL (7.4-10.4); Nucleated Red Blood Cells % 0 % (-); Platelet Count 162 10^3/uL (130-400); Red Blood Cell Count 3.58 10^6/uL (4.70-6.10); Red Cell Dist. Width 12.6 % (11.5-14.5); White Blood Cell Count 5.3 10^3/uL (4.8-10.8)
[2023-11-28 02:20] LABS: INR 1.06; PT 13.6 Sec (11.4-14.6)
[2023-11-28 02:21] LABS: APTT 71.5 Sec (23.4-35.0)
[2023-11-28 03:20] LABS: ALT (SGPT) 42 U/L (0-50); AST (SGOT) 48 U/L (17-59); Albumin 3.7 g/dl (3.5-5.0); Alkaline Phosphatase 86 U/L (38-126); Blood Urea Nitrogen 23 mg/dl (9-20); Calcium 9.6 mg/dl (8.4-10.2); Carbon Dioxide 23 mmol/L (22-30); Chloride 106 mmol/L (98-107); Estimated Creatinine Clearance > 125 ml/min; Glucose 159 mg/dl (70-99); Potassium 4.5 mmol/L (3.5-5.1); Sodium 135 mmol/L (135-145); Total Bilirubin 0.8 mg/dl (0.2-1.3); eGFR > 60.00
[2023-11-28] MEDS: MAGNESIUM OXIDE 500 MG PO (05:54)
[2023-11-28] MEDS: LOPRESSOR 25 MG PO (05:54)
[2023-11-28] MEDS: BACTROBAN 2% OINTMENT 1 APPLIC NASAL ×2 (05:54→19:17)
[2023-11-28] MEDS: PROTONIX 40 MG PO (05:54)
--- NOTE | 2023-11-28 06:28 | W.CVOR.SURPR ---
CVOR Surgeon Immed Pre Op
-
I have examined this patient prior to performance of the scheduled procedure.
The patient's condition is unchanged from the time of the dictated/written History and
Physical and the patient is able to undergo the scheduled procedure.
[2023-11-28 08:26] LABS: Urine Albumin Negative (Neg - Trace); Urine Bilirubin Negative (Negative); Urine Character Clear (Clear); Urine Color Yellow; Urine Glucose Negative (Negative); Urine Ketone Negative (Negative); Urine Leukocyte Negative (Negative); Urine Nitrite Negative (Negative); Urine Occult Blood Negative (Negative); Urine Urobilinogen Negative (Neg - 1+)
[2023-11-28 08:29] LABS: ACT+ - POC 107 Seconds (82-134)
[2023-11-28 08:36] LABS: B.E. - POC -4.5 mmol/L; Glucose - POC 150 mg/dl (65-99); HCO3 - POC 20 mmol/L (21-29); Hematocrit - POC 31 % PCV (42-52); Hemodilution- POC No; Hemoglobin Calculated - POC 10.7; Ionized Calcium - POC 1.17 mmol/L (1.12-1.27); O2 Saturation %Calculated-POC 99.7 5 (92-96); PCO2 - POC 36 mmHg (35-45); PO2 - POC 206 mmHg (80-100); POC Comment PRE; Potassium - POC 4.1 mmol/L (3.6-5.0); Sodium - POC 140 mmol/L (135-145); pH - POC 7.36 (7.35-7.45)
--- NOTE | 2023-11-28 09:17 | CM ---
Patient in OR today for planned CT Surgery.
Prior to admission, patient resides w/ spouse in a private 2 story home. Functionally, patient is indep. at baseline w/ ADLs, mobility without the use of any assisted device.
DC plan is for home w/ CT Transitional Care RN.
CM to follow.
[2023-11-28 09:46] LABS: ACT+ - POC 480 Seconds (82-134)
[2023-11-28 10:22] LABS: B.E. - POC -0.5 mmol/L; Glucose - POC 203 mg/dl (65-99); HCO3 - POC 24 mmol/L (21-29); Hematocrit - POC 25 % PCV (42-52); Hemodilution- POC Yes; Hemoglobin Calculated - POC 8.4; Ionized Calcium - POC 1.01 mmol/L (1.12-1.27); O2 Saturation %Calculated-POC 99.9 5 (92-96); PCO2 - POC 38 mmHg (35-45); PO2 - POC 336 mmHg (80-100); POC Comment CPB; Potassium - POC 4.8 mmol/L (3.6-5.0); Sodium - POC 138 mmol/L (135-145); pH - POC 7.41 (7.35-7.45)
[2023-11-28 10:24] LABS: ACT+ - POC 514 Seconds (82-134)
[2023-11-28 10:51] LABS: B.E. - POC -2.2 mmol/L; Glucose - POC 176 mg/dl (65-99); HCO3 - POC 23 mmol/L (21-29); Hematocrit - POC 25 % PCV (42-52); Hemodilution- POC Yes; Hemoglobin Calculated - POC 8.5; Ionized Calcium - POC 1.06 mmol/L (1.12-1.27); O2 Saturation %Calculated-POC 99.5 5 (92-96); PCO2 - POC 39 mmHg (35-45); PO2 - POC 169 mmHg (80-100); POC Comment REWARM; Potassium - POC 4.1 mmol/L (3.6-5.0); Sodium - POC 140 mmol/L (135-145); pH - POC 7.37 (7.35-7.45)
[2023-11-28 10:53] LABS: ACT+ - POC 462 Seconds (82-134)
[2023-11-28 11:07] LABS: ACT+ - POC 101 Seconds (82-134)
[2023-11-28 11:12] LABS: B.E. - POC -7.2 mmol/L; Glucose - POC 112 mg/dl (65-99); HCO3 - POC 19 mmol/L (21-29); Hematocrit - POC 23 % PCV (42-52); Hemodilution- POC Yes; Hemoglobin Calculated - POC 7.9; O2 Saturation %Calculated-POC 99.5 5 (92-96); PCO2 - POC 39 mmHg (35-45); PO2 - POC 190 mmHg (80-100); POC Comment POST; Potassium - POC 3.1 mmol/L (3.6-5.0); Sodium - POC 144 mmol/L (135-145); pH - POC 7.29 (7.35-7.45)
[2023-11-28 11:16] LABS: Glucose - POC 110 mg/dl (65-99); HCO3 - POC 20 mmol/L (21-29); Hematocrit - POC 25 % PCV (42-52); Hemodilution- POC Yes; Hemoglobin Calculated - POC 8.5; Ionized Calcium - POC 1.39 mmol/L (1.12-1.27); O2 Saturation %Calculated-POC 92.1 5 (92-96); PCO2 - POC 44 mmHg (35-45); PO2 - POC 73 mmHg (80-100); POC Comment POST; Potassium - POC 3.5 mmol/L (3.6-5.0); Sodium - POC 143 mmol/L (135-145); pH - POC 7.28 (7.35-7.45)
--- NOTE | 2023-11-28 11:33 | W.PN.CT.SURG ---
CT Surgery Operative Note
-
Pre-op Diagnosis: nstemi
left main cad
tobacco abuse
Post-op Diagnosis: Same
Procedure: Cabg x 3
flores- lad
joe- om
ao-svg-pda
revh
rsf
siena ligation #40 clip
Primary Surgeon: Fernando
Assisting Surgeons: Cuca
Dr Kaushal Corbett (pgy 1)
Specimen: None
Cultures: None
Complications / Blood Loss: None
Findings: Jeremias with preserved ef pre and post
Siena without clot, completely occluded post clip
good conduit
severe plaque throughout the coronary tree
[2023-11-28 11:47] LABS: B.E. - POC -2.7 mmol/L; Glucose - POC 60 mg/dl (65-99); HCO3 - POC 24 mmol/L (21-29); Hematocrit - POC 26 % PCV (42-52); Hemodilution- POC Yes; Hemoglobin Calculated - POC 8.8; O2 Saturation %Calculated-POC 93.3 5 (92-96); PCO2 - POC 50 mmHg (35-45); PO2 - POC 77 mmHg (80-100); POC Comment POST; Potassium - POC 4.2 mmol/L (3.6-5.0); Sodium - POC 144 mmol/L (135-145); pH - POC 7.29 (7.35-7.45)
[2023-11-28 12:08] LABS: Glucose - Point of Care 51 mg/dl (70-99)
[2023-11-28] MEDS: ALBUMIN 5% 250 IV (12:10)
[2023-11-28] MEDS: NSS 500 IV (12:13)
[2023-11-28] MEDS: ANCEF 10 IV ×2 (12:13)
[2023-11-28] MEDS: DEXTROSE 50% SYRINGE 12.5 GRAMS IV (12:13)
[2023-11-28] MEDS: NEURONTIN PO ×2 (12:14→15:31)
[2023-11-28] MEDS: NOVOLOG FLEXPEN SC ×2 (12:14→15:31)
[2023-11-28] MEDS: NOVOLOG FLEXPEN-MODERATE RESISTANCE SC ×2 (12:15→12:16)
[2023-11-28 12:16] LABS: B.E. -3.7 mmol/L; HCO3 22.2 mmol/L (21-28); Ionized Calcium 1.27 mMOL/L (1.15-1.33); PCO2 43 mmHg (35-48); PO2 182 mmHg (83-108); Potassium 4.3 mMOL/L (3.5-5.1); Sodium 140 mMOL/L (136-145); pH 7.32 (7.35-7.45)
[2023-11-28] MEDS: TOPROL XL PO (12:16)
[2023-11-28] MEDS: THIAMINE INJECTION IV (12:16)
[2023-11-28] MEDS: LOW STRENGTH ASPIRIN PO (12:16)
[2023-11-28] MEDS: FOLVITE PO (12:16)
[2023-11-28 12:17] LABS: O2 Therapy VENT
[2023-11-28 12:21] LABS: Glucose - Point of Care 117 mg/dl (70-99)
[2023-11-28 12:21] LABS: Hematocrit 26.7 % (39.0-52.0); Platelet Count 113 10^3/uL (130-400)
[2023-11-28 12:33] LABS: INR 1.27; PT 15.7 Sec (11.4-14.6)
[2023-11-28 12:34] LABS: APTT 29.6 Sec (23.4-35.0)
--- NOTE | 2023-11-28 12:48 | PN.DE.MGMTRT ---
Insulin Management
- -
11/28/2023 Diabetes Management Consult
Patient admitted 11/25 with chest pain, s/p cardiac cath 11/25, CABG x3 11/27. PMH CAD w multiple stents, HTN, HLD, type 2 diabetes. Prior to admission was taking metformin 1000 mg BID. A1C 6.6, cr .6, eGFR > 60 on admission.
Day of surgery, glycemic protocol insulin infusion to continue till POD 2.
Will follow
Diabetes History
- -
Type of Diabetes: 2
Pre-Admission Diabetes Regimen
11/28/23
02:03
Creatinine 0.6 L
Lab Results
Hemoglobin A1c 6.6 % (4.0-5.6) H 11/27/23 02:22
Insulin Pump Settings
IP Diabetes Regimen
11/27/23 11/27/23 11/28/23
18:05 22:40 02:03
Glucose 159 H
POC Glucose 161 H 139 H
11/28/23 11/28/23
12:06 12:19
Glucose
POC Glucose 51 L* 117 H
Meal type: Dinner
Meal type: Lunch
Amount consumed: 100%
Amount consumed: 100%
Patient Education
[2023-11-28 12:55] LABS: Glucose - Point of Care 85 mg/dl (70-99)
--- NOTE | 2023-11-28 13:00 | PTCARENOTE ---
pt received from CVOR @~1205. core temp, 95.8F, bear hugger applied. pt sedated on Precedex gtt, RASS -5. Sinus Arrhythmia on the monitor, HR 40s-70s. +rub. V-wire set to VVI 40/5. SBP 80s-140s, labile. Levophed gtt titrated for MAP as ordered.
Albumin x1 given. CVP~6. palpable pulses, no edema. pt mechanically ventilated. ETT#8.0, 23cm@lip. initial settings: SIMV 14, TV 500, PEEP 5, PS 5, FIO2 60%. POX 100%. lungs clear anteriorly. CT x3, +1 air leak in both atriums, PA Pat aware. Suction
indicator not representing continuous suction, suction adjusted. PA Pat at bedside, chest tube site assessed. Site redressed w/ Tegaderm by PA for occlusive dressing. pt abdomen s/n, hypoactive BS. Falcon in place, clear yellow urine. sternal
incision [employer], approximated. L groin puncture [employer], approximated. LLE FER bandage in place. RIJ cordis w/ slick, dressing changed. L radial [place] flushed, zeroed, and calibrated. PIV. insulin gtt per protocol. lab work drawn, EKG performed, CXR
completed. initial BS on admission to CVICU was 51, 1/2amp D50 given as order, BS increased to 117, critical glycemic protocol followed.
[2023-11-28] MEDS: TYLENOL PO (13:02)
[2023-11-28 13:04] LABS: Blood Urea Nitrogen 18 mg/dl (9-20); Estimated Creatinine Clearance 123 ml/min; Glucose 43 mg/dl (70-99)
--- NOTE | 2023-11-28 13:28 | CON.INTV ---
Consultation
Consultation Request
Date/Time Consultation Requested: 11/28/2023 - 1131
Date/Time Consultation Performed: 11/28/2023 - 125
Requesting Provider: Yovanny Thurman PA-C
Performing Provider: Dr. Soto
Reason for Consultation: s/p CABG x3
Medical History
-
Chief Complaint: Chest pain
History of Present Illness:
63-year-old male with a past medical history of CAD, DM type II and tobacco use who presents with chest pain. Chest pain woke him from sleep. It lasted 1 hour then spontaneously resolved. In the ER he was hypertensive to 179/85, SpO2 98% on room
air, pulse rate 66 and afebrile to 98 �F. Labs showed Hb 12.7, troponin 0.167, urine drug screen positive for marijuana, and CXR showed no acute cardiopulmonary process. Given his elevated troponin, he was given aspirin, nitroglycerin and started
on heparin drip in the ER. He was admitted to the IVU for further care with cardiology consulted. Left heart catheterization performed on 11/25 showing a flush occlusion of the RCA, a 70-80% lesion in the left main extending into a 70% ostial LAD,
and an 80% ostial circumflex lesion. LVEDP was also elevated at 22 mmHg. Cardiothoracic surgery was consulted. Spirometry showed mild obstructive lung disease. Today he underwent CABG x 3 with JEAN ligation with a #40 clip. There were no
complications and patient was transferred to the CVICU postoperatively, with critical care services consulted for additional management/recommendations.
When I saw the patient he was intubated on SIMV 16/500/40%/5, with peak pressure 21, breathing at 16 breaths/min and VTe of 465 mL. He has a mediastinal chest tube x1 and a left + right pleural chest tube. BP via A-line was 134/64, HR 55, bp via
NIBP was 122/71, CVP 8 and SpO2 98%. He is sedated on Precedex at 0.5 mcg/kg/hr, and on Levophed at 1mcg/min.
PMHx: Hypertension, hyperlipidemia, CAD s/p stents X6, DM type II, tobacco use disorder, alcohol use
PSHx: s/p coronary stents
Past Medical History
Past Medical History: Other (Above as per HPI)
Past Surgical History: Other (Above as per HPI)
Social History
Tobacco: Smoker
Alcohol: Daily
Drug: None
Personal:
Living: With Family
Family History
Family History: Reviewed & Not Pertinent
Allergies / Home Medications
Allergies
Allergy/AdvReac Type Severity Reaction Status Date / Time
No Known Drug Allergies Allergy Unknown Verified 11/26/23 08:18
Home Medications
�Medication �Instructions �Recorded �Confirmed �Last Taken �Type
aspirin 81 mg chewable tablet 81 mg PO DAILY Blood Clot 05/11/15 11/26/23 11/25/23 History
(Murtaza Chewable Low Dose Aspirin) Prevention/Tx
atorvastatin 80 mg tablet 80 mg PO HS High Cholesterol 05/11/15 11/26/23 11/25/23 History
lisinopril 20 mg tablet 20 mg PO BID #180 tabs 04/18/19 11/26/23 11/25/23 Rx
metformin 500 mg tablet 1,000 mg (2 x 500 mg) PO BID ##0 04/18/19 11/26/23 11/25/23 Rx
metoprolol succinate 25 mg 25 mg PO DAILY 04/18/19 11/26/23 11/25/23 Rx
tablet,extended release 24 hr
Review of Systems
-
Unable to Obtain full review of systems at this time due to: Patient Intubation
Vitals / Labs / Diagnostic Testing
Vital Signs
Temp Pulse Resp BP Pulse Ox
96.3 F L 59 16 85/56 96
11/28/23 13:00 11/28/23 12:55 11/28/23 12:58 11/28/23 12:08 11/28/23 12:58
Lab Data
11/28/23 12:06
Laboratory Results
11/27/23 11/28/23 11/28/23
17:51 02:03 08:45
PT 13.6
INR 1.06
APTT 62.7 H 71.5 H Cancelled
pH
pCO2
pO2
HCO3
O2 Delivery Level
11/28/23
12:06
PT 15.7 H
INR 1.27
APTT 29.6
pH 7.32 L
pCO2 43
pO2 182 H
HCO3 22.2
O2 Delivery Level Vent
Diagnostic Testing:
Physical Exam
-
HEENT: Normocephalic and Anicteric
Cardiovascular: S1/S2 and Peripheral Edema (Negative)
Respiratory: Wheeze (Negative), Rales (Negative), Rhonchi (Negative) and Other (Mechanical breath sounds heard bilaterally)
GI: Soft, Non Distended and Non Tender
Neurology: Other (Sedated)
Skin: Warm and Dry
General: Fever (Negative)
Assessment
-
Assessment: 63-year-old male with a past medical history of CAD, DM type II and tobacco use who presents with chest pain. Chest pain woke him from sleep. It lasted 1 hour then spontaneously resolved. In the ER he was hypertensive to 179/85, SpO2
98% on room air, pulse rate 66 and afebrile to 98 �F. Labs showed Hb 12.7, troponin 0.167, urine drug screen positive for marijuana, and CXR showed no acute cardiopulmonary process. Given his elevated troponin, he was given aspirin, nitroglycerin
and started on heparin drip in the ER. He was admitted to the IVU for further care with cardiology consulted. Left heart catheterization performed on 11/25 showing a flush occlusion of the RCA, a 70-80% lesion in the left main extending into a 70%
ostial LAD, and an 80% ostial circumflex lesion. LVEDP was also elevated at 22 mmHg. Cardiothoracic surgery was consulted. Spirometry showed mild obstructive lung disease. On 11/28/2023 he underwent CABG x 3 with JEAN ligation with a #40 clip.
There were no complications and patient was transferred to the CVICU postoperatively, with critical care services consulted for additional management/recommendations.
Chronic conditions [place]: Hypertension, hyperlipidemia, CAD s/p stents X6, DM type II, tobacco use disorder, alcohol use
Impression:
#NSTEMI with multivessel CAD including left main coronary artery s/p CABG x3 +JEAN-ligation s/p clipping (POD#0)
#Acute anemia
#Acute thrombocytopenia
#Hypoglycemia
#Tobacco Use disorder
#Marijuana use
#Alcohol use disorder
#Mild obstructive lung disease - suspicious for COPD given his tobacco use, however no emphysema seen on CT chest from 11/27/2023
Plan:
Ventilator settings reviewed
FiO2 will be weaned to keep SpO2 >90-94%
Minute ventilation will be adjusted
Arterial blood gases will be monitored
Spontaneous breathing trial will be attempted with hopeful extubation after anesthesia/sedation wear off
prn nebulized bronchodilators
Pulmonary artery catheter parameters will be followed
Pressors/antihypertensive/inotropes/diuretics will be provided as needed
Maintain MAP>65
Replete electrolytes with K>4, Mg>2
Monitor chest tube output (mediastinal x 1 + left/right pleural chest tubes)
Monitor hemoglobin
Monitor platelet count and coags
Transfuse blood product if needed
CT surgery managing chest tubes
Monitor blood sugar with goal BG 140-180
Insulin drip per protocol
Apply nicotine patch
Aspiration precautions
VAP prevention protocol
DVT prophylaxis
Early nutrition
Early mobilization
Critical care statement: A total of 46 minutes of critical care time was provided for this patient today. This includes management of ventilator, spontaneous breathing trial, arterial blood gases, pressors, of unstable vital signs, evaluation of the
patient at bedside, reviewing the patient's pertinent medical records including radiographs, microbiology, laboratory evaluations, and discussion with primary team and critical care nursing.
Data:
CXR 11-28-2023: Bibasilar linear opacities most suggestive of subsegmental atelectasis. Otherwise clear lungs
CT Chest w/o contrast 11-27-2023:
Dense coronary artery calcifications.
Linear density within the medial and superior aspect of the left lower lobe of the lung, which is smaller than on examination of October 18, 2023. This interval decrease in size is reassuring that this is postinflammatory.
[2023-11-28 14:03] LABS: Glucose - Point of Care 131 mg/dl (70-99)
[2023-11-28] MEDS: DILAUDID 0.25 MG IV (14:08)
[2023-11-28] MEDS: ZOFRAN 4 MG IV (14:08)
[2023-11-28 15:13] LABS: Glucose - Point of Care 122 mg/dl (70-99)
[2023-11-28] MEDS: OFIRMEV 100 IV (15:30)
[2023-11-28] MEDS: PACERONE PO (15:31)
--- NOTE | 2023-11-28 15:40 | PTCARENOTE ---
pt suctioned for copious amount of oral and ET secretions, clear. pt nods appropriately, GHOSH. follows commands. pt placed on CPAP trial @1500, pt washed w/ CHG wipes, gown changed, face washed. oral hygiene performed. ABG drawn.
[2023-11-28 15:46] LABS: HCO3 23.2 mmol/L (21-28); Ionized Calcium 1.26 mMOL/L (1.15-1.33); PCO2 46 mmHg (35-48); PO2 100 mmHg (83-108); Potassium 4.6 mMOL/L (3.5-5.1); pH 7.31 (7.35-7.45)
[2023-11-28 15:48] LABS: Hematocrit 27.9 % (39.0-52.0); Hemoglobin 9.6 g/dL (13.0-18.0); Platelet Count 135 10^3/uL (130-400)
[2023-11-28 16:03] LABS: Glucose - Point of Care 139 mg/dl (70-99)
[2023-11-28] MEDS: TORADOL 15 MG IV (16:36)
--- NOTE | 2023-11-28 16:58 | W.PN.CARDCBS ---
Addendum entered and electronically signed by Dennis Macedo MD 11/28/23 17:42:
I saw and examined the patient.
The Cash Applications Specialist's note was reviewed and I agree with the note.
Comment:
GEN: No distress, awake, Ox3
HEENT: supple, anicteric, mmm
LUNGS: CTA, no wheezes/rales
CV: Reg, S1/S2, no murmur/rub
ABD: soft, BS+, NT/ND
EXT: No edema
NEURO: Gross non-focal
SKIN: sternotomy
Plan:
Doing well status post CABG. Remains in sinus rhythm. Hemoglobin at 9.6.
Continue amiodarone and metoprolol.
Original Note:
Today's Communication / Plan
-
continue post op care
Impression / Plan
-
PCP: Dr. Aria Kang
Primary registered travel nurse: Dr. Hand
Assessment:
NSTEMI
[place] dx
CAD
s/p 4.0 mm and 3.75 mm Xience to proximal and mid to distal RCA 02/27/12
s/p 4.0 mm Synergy to mid to distal RCA with patent previously placed proximal and mid RCA stents by cath 04/18/19
Carotid artery disease s/p LICA stent 05/01/15
HTN
HLD
GEORGI on CPAP
Active smoker
Daily ETOH use
Echo 04/18/19: Mild concentric LVH, EF 60-65%, trace MR, mild MAC
cath 11/25/23: 80% distal left main extending into a 70% ostial LAD and 80% circumflex lesion.
ECHO 11/27/23: EF 50 to 55%, inferolateral wall hypokinetic, basal inferior akinesis, mild concentric LVH, trace MR
Plan:
-He presented with NSTEMI with peak troponin of 0.819
-Status post CABG x 3 ANTONIO�LAD, COLT�OM, AO�SVG�PDA, JEAN ligation 11/28/23
-extubated to supp O2
-off pressors
-BPs low but stable
-He has known sinus arrhythmia, follow on tele. Postop EKG sinus rhythm with prolonged QT.
-continue post op care
-asa, plavix as able. hgb 9.6
-d/w nursing
Progress Note - Management Architect
Subjective
Date of Service: November 28, 2023
no current complaints
Objective
Labs:
11/28/23 15:28
11/28/23 12:06
Labs
Hgb 9.6 g/dL (13.0-18.0) L 11/28/23 15:28
Hct 27.9 % (39.0-52.0) L 11/28/23 15:28
Plt Count 135 10^3/uL (130-400) 11/28/23 15:28
PT 15.7 Sec (11.4-14.6) H 11/28/23 12:06
INR 1.27 11/28/23 12:06
APTT 29.6 Sec (23.4-35.0) 11/28/23 12:06
Sodium 135 mmol/L (135-145) 11/28/23 02:03
Potassium 4.5 mmol/L (3.5-5.1) 11/28/23 02:03
BUN 18 mg/dl (9-20) 11/28/23 12:06
Creatinine 0.6 mg/dL (0.7-1.3) L 11/28/23 12:06
Glucose 43 mg/dl (70-99) L* 11/28/23 12:06
Troponins
11/26/23 11/27/23 11/27/23
08:29 02:22 10:17
Troponin I 0.167 H* 0.819 H* 0.533 H* D
Vital Signs and I&O:
Vital Signs
Temp Pulse Resp BP Pulse Ox
98.6 F 60 13 110/69 99
11/28/23 16:00 11/28/23 16:00 11/28/23 16:00 11/28/23 15:35 11/28/23 16:07
Vital Signs
Temp Pulse Resp BP Pulse Ox
98.6 F 60 13 110/69 99
11/28/23 16:00 11/28/23 16:00 11/28/23 16:00 11/28/23 15:35 11/28/23 16:07
Intake & Output
11/26/23 11/27/23 11/28/23 11/29/23
07:59 07:59 07:59 07:59
Intake Total 580 / 580 1207 / 1207 506.6 / 506.6
Output Total 965 / 965
Balance 580 / 580 1207 / 1207 -458.4 / -458.4
Physical Exam
Physical Exam
GEN: No distress, awake, but drowsy. on supp O2
HEENT: supple, anicteric, mmm, eomi
LUNGS: CTA B/L, no wheezes/rales
CV: Reg, S1/S2, no murmur, + rub
ABD: soft, BS+, NT/ND
EXT: No cyanosis, clubbing, edema
NEURO: Gross non-focal
SKIN: Warm, pink, dry. No rash. Sternotomy dressing c/d/i. CTs in place
[2023-11-28 17:02] LABS: Glucose - Point of Care 128 mg/dl (70-99)
--- NOTE | 2023-11-28 17:08 | PTCARENOTE ---
PHOTOGRAPHER PORTRAIT aware of ABG, extubate order placed. pt extubated @1607 to 6LNC, oriented x4, follows commands. poor effort on IS. + harsh productive cough, thick, clear secretions. pt c/o sternal pain, received PRN Toradol IVP. pt c/o numbness in L hand, PHOTOGRAPHER PORTRAIT
aware.
[2023-11-28] MEDS: LOW STRENGTH ASPIRIN 81 MG PO (17:30)
[2023-11-28] MEDS: ANCEF 5 IV (17:30)
[2023-11-28] MEDS: ROXICODONE 5 MG PO (18:35)
[2023-11-28 18:43] LABS: Glucose - Point of Care 121 mg/dl (70-99)
--- NOTE | 2023-11-28 19:45 | PTCARENOTE ---
assumed care of pt from previous RN. pt A&Ox4, in bed at time of assessment. R IJ cordis w/ SLIC. L radial a-line. all lines leveled, zeroed, flushed. SR to sinus arrhythmia on tele-monitor, HR 60s-70s. epicardial friction rub on auscultation.
palpable peripheral pulses. no edema noted. temp epicardial v-wires w/ backup settings 40/5/3. CTx3 (1 mediastinal, R & L pleural) to -20cm wall suction. intermittent air leak noted in both atriums. POX 97-100% on 2 L NC. abd s/n, hypoactive BS.
corona catheter draining clear, yellow urine. all surgical sites stable. PIV intact. see worklist for complete nursing assessment, interventions, VS, and I&Os.
[2023-11-28] MEDS: LIPITOR 80 MG PO (20:52)
[2023-11-28] MEDS: NEURONTIN 300 MG PO (20:53)
[2023-11-28] MEDS: SENOKOT-S 1 TABLET PO (20:53)
[2023-11-28] MEDS: TYLENOL 1000 MG PO (20:53)
[2023-11-28] MEDS: PACERONE 200 MG PO (20:53)
[2023-11-28 21:01] LABS: Glucose - Point of Care 113 mg/dl (70-99)
[2023-11-28] MEDS: FLEXERIL 5 MG PO (21:07)
[2023-11-28 22:53] LABS: Glucose - Point of Care 121 mg/dl (70-99)
[2023-11-28] MEDS: DILAUDID 0.5 MG IV (23:01)
[2023-11-28 23:57] LABS: Glucose - Point of Care 114 mg/dl (70-99)
[2023-11-29] VITALS (17 sets, daily range): BP systolic 90–157; BP diastolic 46–67; PULSE 66; O2SAT 97–99; BMI 22.4
--- NOTE | 2023-11-29 | PTCARENOTE ---
assessment remains unchanged. VSS. CT drainage WNL.
[2023-11-29 01:03] LABS: Glucose - Point of Care 92 mg/dl (70-99)
[2023-11-29 01:56] LABS: Glucose - Point of Care 105 mg/dl (70-99)
[2023-11-29 02:57] LABS: Glucose - Point of Care 100 mg/dl (70-99)
[2023-11-29] MEDS: ANCEF 5 IV ×2 (03:02→10:14)
[2023-11-29 03:15] LABS: Hematocrit 26.9 % (39.0-52.0); Hemoglobin 9.2 g/dL (13.0-18.0); Mean Corp Hgb Conc. 34.2 g/dL (33.0-37.0); Mean Corpuscular Hgb 34.6 pg (27.0-31.0); Mean Corpuscular Volume 101.1 fL (80.0-94.0); Mean Platelet Volume 10.7 fL (7.4-10.4); Platelet Count 128 10^3/uL (130-400); Red Blood Cell Count 2.66 10^6/uL (4.70-6.10); Red Cell Dist. Width 12.7 % (11.5-14.5); White Blood Cell Count 6.7 10^3/uL (4.8-10.8)
[2023-11-29 03:34] LABS: Blood Urea Nitrogen 21 mg/dl (9-20); Calcium 8.8 mg/dl (8.4-10.2); Carbon Dioxide 23 mmol/L (22-30); Chloride 110 mmol/L (98-107); Estimated Creatinine Clearance 123 ml/min; Glucose 99 mg/dl (70-99); Potassium 4.4 mmol/L (3.5-5.1); Sodium 141 mmol/L (135-145); eGFR > 60.00
--- NOTE | 2023-11-29 04:00 | PTCARENOTE ---
assessment remains unchanged. VSS. Sinus arrhythmia-SR on tele-monitor. HR 60s. POX 99% on [address] drainage WNL. AM labs collected and sent.
--- NOTE | 2023-11-29 04:56 | W.PN.CT ---
Today's Communication / Plan
-
-pod #1
-no issues overnight
-drips: insulin. Levo is off
-CT output: med 90/260, b/l pleur 80/260 in 12/24 hrs
-deline
-continue insulin
-d/c Falcon
-will d/c med CT and bulb pleurals
-ordered Nicotine patch
-watch for DT
-current meds (ASA, Plavix, Lipitor, Lopressor, Amio, Protonix)
-encourage IS, OOB
Assessment / Plan
-
- NSTEMI/LM-CAD - s/p Cabg x 3 (Lovett-Lad, Ashlyn 'y-graft off Lovett' to Om, Ao-svg-Pda); R ev; LAAE # [address] King on 11/28/23, pod #1
- Intraop NOA: preserved EF pre 60-65% and post 70-75%, no wma. Graciela without clot, completely occluded post clip. Severe plaque throughout the coronary tree
- CAD - s/p multiple RCA stents
- HTN/HLD
- DM II (HgA1c 6.6)
- PVD - s/p L carotid stent (patent on US 11/27/23)
- GEORGI - on CPAP
- Tobacco use (1/2 ppd, smokes pot)
- EtOH use
- Acute postop blood loss anemia- stable, no transfusion
- Acute postop thrombocytopenia
- Acute postop atelectasis
- Suspected acute postop pericarditis, + rub
- Acute postop hypovolemia with subsequent hypervolemia
Discussed patient care with: Nursing and Care Team
Subjective
Procedure
- s/p Cabg x 3 (Lovett-Lad, Ashlyn 'y-graft off Lovett' to Om, Ao-svg-Pda); R ev; LAAE # [address] King on 11/28/23
-
Date of Service: November 29, 2023
Objective Data
-
PT 15.7 Sec (11.4-14.6) H 11/28/23 12:06
INR 1.27 11/28/23 12:06
APTT 29.6 Sec (23.4-35.0) 11/28/23 12:06
Vital Signs
Vital Signs
Temp Pulse Resp BP Pulse Ox
97.2 F 64 10 125/59 99
11/29/23 01:00 11/29/23 01:00 11/29/23 01:00 11/29/23 01:00 11/29/23 01:00
CT Intake/Output/Weight
11/28/23 11/28/23 11/29/23
06:59 18:59 06:59
Intake Total 480 / 1207 553.4 / 738.5 185.1 / 738.5
Output Total 1125 / 1565 440 / 1565
Balance 480 / 1207 -571.6 / -826.5 -254.9 / -826.5
SaO2: 99
Physical Exam
-
General: Awake and AOx3
Cardiovascular: Regular rate & rhythm, No Murmurs and Rub
Respiratory: Decreased Breath Sounds
Sternum: Stable
Incision: Clean, Dry and Intact
Extremities: No Edema (1+ DP b/l)
Data Reviewed
-
Lab Results: Results Reviewed
Medications: Active Meds Reviewed
Chest X-Ray: Report Reviewed and Image Reviewed
ECG: Report Reviewed and Image Reviewed
[2023-11-29 05:17] LABS: Glucose - Point of Care 105 mg/dl (70-99)
[2023-11-29] MEDS: TORADOL 15 MG IV (05:20)
[2023-11-29] MEDS: TYLENOL 1000 MG PO ×3 (05:20→21:09)
[2023-11-29 07:09] LABS: Glucose - Point of Care 93 mg/dl (70-99)
--- NOTE | 2023-11-29 08:00 | PTCARENOTE ---
Assumed care of patient from field pipe lines supervisor RN. AAO x 3. SR w/ PAC's on monitor. Epicardial wire set to VVI 40, no pacing noted at present. Room air 95%. IS to 1000. Productive cough with thick bee sputum. Denies sob. Chest tubes x 3 to - 20 cm
suction. Air leak noted in both atrium. NO crepitus noted. Abdomen soft and non tender. Due to void. Denies urge at present. Pulses palpable. Surgical sites, approximated and intact. Insulin infusing per glycemic protocol.
--- NOTE | 2023-11-29 08:03 | PN.DE.MGMTRT ---
Insulin Management
- -
11/29/2023 Diabetes Management Consult Follow up
Patient admitted 11/25 with chest pain, s/p cardiac cath 11/25, CABG x3 11/27. PMH CAD w multiple stents, HTN, HLD, type 2 diabetes. Prior to admission was taking metformin 1000 mg BID. A1C 6.6, cr .6, eGFR > 60 on admission.
Patient follows with Dr. Le, endocrine.
POD 1, doing well, glycemic protocol insulin infusion continues. Glucose range 100 to 121 with insulin infusion @ 1.3 to 2.3. Fasting this AM 93, insulin infusing @ .6, post breakfast glucose 317, insulin infusion up to 8 units per hour.
Discussed better choices for meals. Patient states he is well controlled. Discussed starting Farxiga or Jardiance, he states it depends on cost.
Will continue insulin infusion today, assess for readiness to transition in AM.
Will ask CM to check cost of Farxiga or Jardiance.
Diabetes History
- -
Type of Diabetes: 2
Pre-Admission Diabetes Regimen
11/28/23 11/29/23
12:06 02:57
Creatinine 0.6 L 0.6 L
Lab Results
Hemoglobin A1c 6.6 % (4.0-5.6) H 11/27/23 02:22
Insulin Pump Settings
IP Diabetes Regimen
11/28/23 11/28/23 11/28/23
12:06 12:19 12:54
Glucose 43 L*
POC Glucose 51 L* 117 H 85
11/28/23 11/28/23 11/28/23
14:01 15:11 16:00
Glucose
POC Glucose 131 H 122 H 139 H
11/28/23 11/28/23 11/28/23
17:00 18:41 21:00
Glucose
POC Glucose 128 H 121 H 113 H
11/28/23 11/28/23 11/29/23
22:52 23:56 01:02
Glucose
POC Glucose 121 H 114 H 92
11/29/23 11/29/23 11/29/23
01:54 02:56 02:57
Glucose 99
POC Glucose 105 H 100 H
11/29/23 11/29/23
05:13 07:04
Glucose
POC Glucose 105 H 93
Patient Education
[2023-11-29] MEDS: PLAVIX 75 MG PO (08:40)
[2023-11-29] MEDS: FLEXERIL 5 MG PO (08:40)
[2023-11-29] MEDS: SENOKOT-S 1 TABLET PO ×2 (08:40→20:10)
[2023-11-29] MEDS: NEURONTIN 300 MG PO ×3 (08:41→21:09)
[2023-11-29] MEDS: LOW STRENGTH ASPIRIN 81 MG PO (08:41)
[2023-11-29] MEDS: PROTONIX 40 MG PO (08:42)
[2023-11-29] MEDS: PACERONE 200 MG PO ×3 (08:42→21:09)
[2023-11-29] MEDS: LOPRESSOR 12.5 MG PO ×2 (08:42→20:09)
[2023-11-29] MEDS: NOVOLOG FLEXPEN SC (08:42)
[2023-11-29] MEDS: MAGNESIUM OXIDE PO (08:42)
[2023-11-29] MEDS: BACTROBAN 2% OINTMENT 1 APPLIC NASAL ×2 (08:43→20:09)
[2023-11-29 08:48] LABS: Glucose - Point of Care 317 mg/dl (70-99)
--- NOTE | 2023-11-29 09:21 | W.PN.INTV ---
Today's Communication / Plan
Recommendations
Up OOB as tolerated
Pain control
Maintain SpO2 >90-94%
Goal BG 140-180mg/dL
Patient now CVICU�telemetry status. Cake Press Operator/Pulmonary service will now sign off. Please reconsult if there are any additional questions/concerns, or if patient's respiratory status deteriorates.
Assessment
-
Assessment: 63-year-old male with a past medical history of CAD, DM type II and tobacco use who presents with chest pain. Chest pain woke him from sleep. It lasted 1 hour then spontaneously resolved. In the ER he was hypertensive to 179/85, SpO2
98% on room air, pulse rate 66 and afebrile to 98 �F. Labs showed Hb 12.7, troponin 0.167, urine drug screen positive for marijuana, and CXR showed no acute cardiopulmonary process. Given his elevated troponin, he was given aspirin, nitroglycerin
and started on heparin drip in the ER. He was admitted to the IVU for further care with cardiology consulted. Left heart catheterization performed on 11/25 showing a flush occlusion of the RCA, a 70-80% lesion in the left main extending into a 70%
ostial LAD, and an 80% ostial circumflex lesion. LVEDP was also elevated at 22 mmHg. Cardiothoracic surgery was consulted. Spirometry showed mild obstructive lung disease. On 11/28/2023 he underwent CABG x 3 with JEAN ligation with a #40 clip.
There were no complications and patient was transferred to the CVICU postoperatively, with critical care services consulted for additional management/recommendations.
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
Impression:
#NSTEMI with multivessel CAD including left main coronary artery s/p CABG x3 +JEAN-ligation s/p clipping (POD#1)
#Acute anemia
#Acute thrombocytopenia
#Hypoglycemia - resolved
#Tobacco Use disorder
#Marijuana use
#Alcohol use disorder
#Mild obstructive lung disease - suspicious for COPD given his tobacco use, however no emphysema seen on CT chest from 11/27/2023
Plan:
Patient successfully extubated on 11/28/2023
Maintain SpO2 >90-94%
prn nebulized bronchodilators
Pulmonary artery catheter removed
Removal of right IJ cordis as per cardiothoracic surgery
Maintain MAP>65
Replete electrolytes with K>4, Mg>2
Monitor chest tube output (mediastinal chest tube removed; left/right pleural chest tubes placed to bulb today)
Monitor hemoglobin
Monitor platelet count and coags
Transfuse blood product if needed
CT surgery managing chest tubes
Monitor blood sugar with goal BG 140-180
Insulin drip to be stopped today
Start insulin SQ ISS
Apply nicotine patch
Aspiration precautions
DVT prophylaxis
Early nutrition
Early mobilization
Patient now CVICU�telemetry status. Cake Press Operator/Pulmonary service will now sign off. Thank you for allowing us to be involved in the care of this patient. Please reconsult if there are any additional questions/concerns, or if patient's
respiratory status deteriorates.
Total time spent today was 55 minutes for this encounter. Time includes reviewing laboratory test/imaging results, reviewing pertinent medical records, obtaining and reviewing medical history, performing an appropriate exam, ordering medications,
tests and procedures. Time also includes documentation of this encounter, coordinating patient care and communicating with other healthcare professionals. Total time does not include separately billed tests performed on this date of service.
Data:
CXR 11-29-2023: Interval removal of endotracheal tube; No evidence for significant pneumothorax; Improvement in bilateral lower lung atelectasis.
CXR 11-28-2023: Bibasilar linear opacities most suggestive of subsegmental atelectasis. Otherwise clear lungs
CT Chest w/o contrast 11-27-2023:
Dense coronary artery calcifications.
Linear density within the medial and superior aspect of the left lower lobe of the lung, which is smaller than on examination of October 18, 2023. This interval decrease in size is reassuring that this is postinflammatory.
Subjective Dataa
Subjective Data
Date of Service:
Date of Service: November 29, 2023
Chief Complaint: Cake Press Operator Follow Up
Subjective:
Patient seen today, he is sleepy. He is on room air breathing comfortably. Currently on insulin at 4 units/h. Heart rate 64. No acute events reported from overnight.
Review of Systems
General: Other (Negative unless mentioned above)
Objective Data
Data Reviewed
Vital Signs / I&O / Oxygen:
Vital Signs
Temp Pulse Resp BP Pulse Ox
99.4 F 74 16 90/55 95
11/29/23 08:00 11/29/23 08:00 11/29/23 08:00 11/29/23 07:00 11/29/23 08:00
Intake and Output
11/28/23 11/29/23 11/30/23
06:59 06:59 06:59
Intake Total 1207 / 1207 837.1 / 847.7 501.2 / 501.2
Output Total 1810 / 1855 65 / 65
Balance 1207 / 1207 -972.9 / -1007.3 436.2 / 436.2
SaO2 [CPAP] 98
SaO2 [SIMV] 97
SaO2 95
Nasal Cannula flow liters per 2
minute
Physical Exam
General: Respiratory Distress (negative) and Comfortable
HEENT: Normocephalic and Anicteric
Cardiovascular: S1-S2 and Peripheral Edema (negative)
Respiratory: Wheeze (negative), Crackles (bilateral), Rhonchi (negative) and Accessory Resp Muscle Use (negative)
GI: Soft, Non Distended, Non Tender and Normal Bowel Sounds
Neurology: Awake and Alert
Skin: Warm, Dry and Jaundice (negative)
Labs/Micro/Reports
Lab Data
11/29/23 02:56
11/29/23 02:57
Laboratory Results
11/28/23 11/28/23 11/28/23
08:45 12:06 15:28
PT 15.7 H
INR 1.27
APTT Cancelled 29.6
pH 7.32 L 7.31 L
pCO2 43 46
pO2 182 H 100
HCO3 22.2 23.2
O2 Delivery Level Vent
[2023-11-29 10:14] LABS: Glucose - Point of Care 226 mg/dl (70-99)
--- NOTE | 2023-11-29 10:51 | W.PN.ANS.POP ---
Anesthesia Post Operative
- Anesthesia Post Op Note
Vital Signs Stable-See Nursing Note: Yes
Airway Patent: Yes
Adequate Pain Control: Yes
Change in Mental Status: No
Current Postoperative Nausea & Vomiting: No
Anesthesia Complications: No
General Anesthetic Recall: No
Unplanned Admission: No
Post Op Hydration Adequate: Yes
--- NOTE | 2023-11-29 11:19 | PTCARENOTE ---
Assisted back to bed x2 d/t lower extremity 'chronic' weakness. sternal precautions heavily reinforced. Pt states he was unaware that he would need to abide by these. Mediastinal chest tube removed at this time, pt tolerated w/o issue. Bilateral
pleural chest tubes placed to bulb suction. Pt worried about his calorie restriction diet, states he is unsure that 1800 calories will be enough food to sustain him. Education and emotional support provided. VSS, Assessment otherwise unchanged
from prior.
--- NOTE | 2023-11-29 11:32 | CM ---
Priced both Jardiance and Farxiga thru patient's Rx otmk-[phone].
Estimated cost of Jardiance/ Farxiga would be $90/3 month supply.
Both medications require prior authorization. Prior auth# [id number]
Pt. would be eligible for free 30 d coupon + $0 co pay card (Farxiga) or $10 co pay card (Jardiance) after first month.
Will place coupon of medication of choice in chart.
TT to [facility] to update on above.
[2023-11-29 11:41] LABS: Glucose - Point of Care 120 mg/dl (70-99)
[2023-11-29] MEDS: NSS IV (13:36)
[2023-11-29] MEDS: ROXICODONE 5 MG PO (13:59)
[2023-11-29 14:00] LABS: Glucose - Point of Care 165 mg/dl (70-99)
[2023-11-29] MEDS: NOVOLOG FLEXPEN 4 UNITS SC (14:00)
--- NOTE | 2023-11-29 14:11 | PTCARENOTE ---
Pt assisted back to bed. Has not voided since corona removed this am. Denies urge. Bladder scanned for 7 ml. PO intake encouraged. Bulb drains needing frequent reconstituting. Dressing taken down Vaseline gauze applied around each tube.
Dressing reapplied. Medication administered for pain
[2023-11-29 16:38] LABS: Glucose - Point of Care 157 mg/dl (70-99)
[2023-11-29] MEDS: GLUCOPHAGE 1000 MG PO (16:39)
[2023-11-29] MEDS: NOVOLOG FLEXPEN-MODERATE RESISTANCE 1 UNITS SC (16:40)
--- NOTE | 2023-11-29 16:50 | W.PN.CARDCBS ---
Addendum entered and electronically signed by Dennis Macedo MD 11/29/23 17:18:
I saw and examined the patient.
The City Comptroller's note was reviewed and I agree with the note.
Comment:
GEN: No distress, awake, Ox3
HEENT: supple, anicteric, mmm
LUNGS: CTA, no wheezes/rales
CV: Reg, S1/S2, no murmur
ABD: soft, BS+, NT/ND
EXT: No edema
NEURO: Gross non-focal
SKIN: sternotomy
PLan:
Overall doing well. Remains in sinus rhythm. QTc stable.
Continue aspirin and Plavix.
Cont Amiodarone
Original Note:
Today's Communication / Plan
-
QTc improved on ECG
HD stable on Lopressor, outpatient dose of lisinopril on hold
Cont DAPT
Impression / Plan
-
PCP: Dr. Aria Kang
Primary microstrategy developer: Dr. Hand
Assessment:
NSTEMI, peak Troponin 0.819
CAD
s/p 4.0 mm and 3.75 mm Xience to proximal and mid to distal RCA 02/27/12
s/p 4.0 mm Synergy to mid to distal RCA with patent previously placed proximal and mid RCA stents by cath 04/18/19
flush occlusion of the RCA, a 70-80% lesion in the distal aspect of the left main extending into a 70% ostial LAD lesion and an 80% ostial circumflex lesion by cath 11/26/23
s/p CABG with ANTONIO to LAD, COLT Y-graft from the ANTONIO to OM, SVG to PDA 11/28/23
s/p JEAN ligation with #40 clip 11/28/23
Carotid artery disease s/p LICA stent 05/01/15
HTN
HLD
GEORGI on CPAP
Active smoker
Daily ETOH use
Echo 04/18/19: Mild concentric LVH, EF 60-65%, trace MR, mild MAC
ECHO 11/27/23: EF 50 to 55%, inferolateral wall hypokinetic, basal inferior akinesis, mild concentric LVH, trace MR
Plan:
-Patient with NSTEMI on admission and then found to have MV CAD by cath same day. Troponin peaked at 0.819. DAPT with aspirin and Plavix
-ECG 11/29/23 reviewed by me shows SR with PACs and lateral T wave inversions that are new compared to 11/28/23, but similar to ER ECGs on admission. QTc improved to 431
-Remains in SR on amiodarone 200 mg TID
-Pain presents with resting pain and elevated Troponin concerning for NSTEMI. Initial Troponin 0.167, will trend
-Outpatient dose of Toprol XL 25 mg daily changed to Lopressor 12.5 mg BID post-op
-LDL 39 and outpatient dose of atorvastatin 80 mg daily continued
-Outpatient dose of lisinopril 20 mg BID on hold
Progress Note - Production Control Expert
Subjective
Date of Service: November 29, 2023
He feels well
Objective
Labs:
11/29/23 02:56
11/29/23 02:57
Labs
Hgb 9.2 g/dL (13.0-18.0) L 11/29/23 02:56
Hct 26.9 % (39.0-52.0) L 11/29/23 02:56
Plt Count 128 10^3/uL (130-400) L 11/29/23 02:56
PT 15.7 Sec (11.4-14.6) H 11/28/23 12:06
INR 1.27 11/28/23 12:06
APTT 29.6 Sec (23.4-35.0) 11/28/23 12:06
Sodium 141 mmol/L (135-145) 11/29/23 02:57
Potassium 4.4 mmol/L (3.5-5.1) 11/29/23 02:57
BUN 21 mg/dl (9-20) H 11/29/23 02:57
Creatinine 0.6 mg/dL (0.7-1.3) L 11/29/23 02:57
Glucose 99 mg/dl (70-99) 11/29/23 02:57
Troponins
11/27/23 11/27/23
02:22 10:17
Troponin I 0.819 H* 0.533 H* D
Vital Signs and I&O:
Vital Signs
Temp Pulse Resp BP Pulse Ox
99.1 F 69 18 111/47 98
11/29/23 11:42 11/29/23 13:45 11/29/23 11:42 11/29/23 11:39 11/29/23 11:42
Vital Signs
Temp Pulse Resp BP Pulse Ox
99.1 F 69 18 111/47 98
11/29/23 11:42 11/29/23 13:45 11/29/23 11:42 11/29/23 11:39 11/29/23 11:42
Intake & Output
11/27/23 11/28/23 11/29/23 11/30/23
06:59 06:59 06:59 06:59
Intake Total 580 / 580 1207 / 1207 837.1 / 847.7 803.2 / 803.2
Output Total 1810 / 1855 105 / 105
Balance 580 / 580 1207 / 1207 -972.9 / -1007.3 698.2 / 698.2
--- NOTE | 2023-11-29 17:15 | PTCARENOTE ---
Sleeping soundly during routine rounds, denies pain . VSS. Chest tubes emptied and reconstituted. Assessment unchanged from prior.
--- NOTE | 2023-11-29 18:59 | PTCARENOTE ---
Bladder a second time d/t no void. Re bladder scanned for 126 ml. Encouraged to drink
--- NOTE | 2023-11-29 20:00 | PTCARENOTE ---
assumed care of pt from previous RN. pt A&Ox4, resting in chair at time of assessment. SR w/ PACs on tele-monitor, HR 60s-70s. palpable peripheral pulses. no edema noted. temp epicardial v-wires w/ backup settings VVI 40/5/2. POX 97% on RA. strong,
productive cough. R & L pleural CTs to bulb suction. air leak in L CT. abd s/n, +BS. pt DTV. will bladder scan at 2230. R IJ cordis w/ KVO. PIV intact. all surgical sites stable. see worklist for complete nursing assessment, interventions, VS, and
I&Os.
[2023-11-29] MEDS: MAGNESIUM OXIDE 500 MG PO (20:09)
[2023-11-29] MEDS: MUCINEX 600 MG PO (21:09)
[2023-11-29] MEDS: LIPITOR 80 MG PO (21:09)
[2023-11-29 21:12] LABS: Glucose - Point of Care 163 mg/dl (70-99)
[2023-11-30] VITALS (10 sets, daily range): BP systolic 99–137; BP diastolic 45–58; PULSE 53; O2SAT 96–99; BMI 22.8
--- NOTE | 2023-11-30 00:06 | PTCARENOTE ---
assessment remains unchanged. VSS. pt ambulated to bathroom w/ assistance to void.
--- NOTE | 2023-11-30 04:00 | PTCARENOTE ---
SR w/ PACs. HR 60s. POX 88% on RA. pt placed on 2 L NC. POX 98%. AM labs collected and sent.
[2023-11-30 04:27] LABS: Hemoglobin 8.2 g/dL (13.0-18.0); Mean Corp Hgb Conc. 34.2 g/dL (33.0-37.0); Mean Corpuscular Hgb 34.3 pg (27.0-31.0); Mean Corpuscular Volume 100.4 fL (80.0-94.0); Mean Platelet Volume 10.7 fL (7.4-10.4); Platelet Count 100 10^3/uL (130-400); Red Blood Cell Count 2.39 10^6/uL (4.70-6.10); Red Cell Dist. Width 12.9 % (11.5-14.5); White Blood Cell Count 5.5 10^3/uL (4.8-10.8)
[2023-11-30 04:44] LABS: Blood Urea Nitrogen 28 mg/dl (9-20); Calcium 8.5 mg/dl (8.4-10.2); Carbon Dioxide 26 mmol/L (22-30); Chloride 106 mmol/L (98-107); Estimated Creatinine Clearance > 125 ml/min; Glucose 126 mg/dl (70-99); Magnesium 1.9 mg/dl (1.6-2.3); Potassium 4.4 mmol/L (3.5-5.1); Sodium 135 mmol/L (135-145); eGFR > 60.00
[2023-11-30] MEDS: TORADOL 15 MG IV (05:36)
[2023-11-30] MEDS: TYLENOL 1000 MG PO ×3 (05:37→22:29)
--- NOTE | 2023-11-30 06:08 | W.PN.CT ---
Today's Communication / Plan
-
-pod #2
-no issues overnight
-CT output (bulbs): L pleur , R pleur 20/80 in 12/24 hrs
-weaned off O2 - pOx 98% RA
-follow CXR- no ptx b/l on my review. Follow Radiology report
-current meds (ASA, Plavix, Lipitor, Lopressor, Amio, Protonix)
-encourage IS, OOB, ambulate
Assessment / Plan
-
- NSTEMI/LM-CAD - s/p Cabg x 3 (Lovett-Lad, Ashlyn 'y-graft off Lovett' to Om, Ao-svg-Pda); R ev; LAAE # [address] King on 11/28/23, pod #2
- Intraop NOA: preserved EF pre 60-65% and post 70-75%, no wma. Graciela without clot, completely occluded post clip. Severe plaque throughout the coronary tree
- CAD - s/p multiple RCA stents
- HTN/HLD
- DM II (HgA1c 6.6)
- PVD - s/p L carotid stent (patent on US 11/27/23)
- GEORGI - on CPAP
- Tobacco use (1/2 ppd, smokes pot)
- EtOH use
- Acute postop blood loss anemia- stable, no transfusion
- Acute postop thrombocytopenia
- Acute postop atelectasis
- Suspected acute postop pericarditis, + rub
- Acute postop hypovolemia with subsequent hypervolemia
Discussed patient care with: Nursing and Care Team
Subjective
Procedure
- s/p Cabg x 3 (Lovett-Lad, Ashlyn 'y-graft off Lovett' to Om, Ao-svg-Pda); R ev; LAAE # [address] King on 11/28/23
-
Date of Service: November 30, 2023
Objective Data
-
PT 15.7 Sec (11.4-14.6) H 11/28/23 12:06
INR 1.27 11/28/23 12:06
APTT 29.6 Sec (23.4-35.0) 11/28/23 12:06
Vital Signs
Vital Signs
Temp Pulse Resp BP Pulse Ox
98.0 F 70 16 135/60 98
11/30/23 00:00 11/29/23 23:03 11/30/23 00:00 11/29/23 23:03 11/30/23 00:00
CT Intake/Output/Weight
11/29/23 11/29/23 11/30/23
06:59 18:59 06:59
Intake Total 283.7 / 847.7 843.2 / 893.2 50 / 893.2
Output Total 685 / 1855 170 / 590 420 / 590
Balance -401.3 / -1007.3 673.2 / 303.2 -370 / 303.2
SaO2: 98
Physical Exam
-
General: Awake and AOx3
Cardiovascular: Regular rate & rhythm, No Murmurs and Rub
Respiratory: Clear and Decreased Breath Sounds
Sternum: Stable
Incision: Clean, Dry and Intact
Extremities: No Edema
Data Reviewed
-
Lab Results: Results Reviewed
Medications: Active Meds Reviewed
Chest X-Ray: Report Reviewed and Image Reviewed
ECG: Report Reviewed and Image Reviewed
--- NOTE | 2023-11-30 07:30 | PTCARENOTE ---
Assumed care of patient from automatic grinder operator RN. AAO x 3 sitting up in the chair. SR on monitor w/ PAC's. Epicardial wire to back up of VVI 40/5. No pacing noted. Pleural chest tubes to bulb drains. Both bulbs emptied and reconstituted. Abdomen
soft and non tender. Voiding w/o issue. Surgical sites c,d,i. Pulses palpable. Plan for day discussed.
--- NOTE | 2023-11-30 07:44 | PN.DE.MGMTRT ---
Insulin Management
- -
11/30/2023: Diabetes Management f/u:
Patient admitted 11/25 with chest pain, s/p cardiac cath 11/25. PMH: CAD w/multiple stents, HTN, HLD, T2DM.
Prior to admission was taking metformin 1000 mg BID. A1C 6.6%, Cr 0.6, eGFR > [address] Le, endocrine.
POD #2 S/P CABG x3. Doing well, Awake, A/O x3, sitting up in chair, at bedside, both able to discuss diabetes management
Pt was transitioned off glycemic protocol insulin infusion to oral regimen and low corrective insulin by primary CV team.
Was started on Metformin 1000 mg BID, received 1st dose 11/28 at dinner time.
Glucose stable, pre-dinner glucose was 157 and HS was 163. Fasting this AM 126.
Will start Farxiga 10mg daily, 1st dose this AM. Cont low corrective insulin with meals.
D/C meds: Metformin 1000 mg BID and Farxiga 10mg daily
Diabetes History
- -
Type of Diabetes: 2
Pre-Admission Diabetes Regimen
11/30/23
04:13
Creatinine 0.6 L
Lab Results
Hemoglobin A1c 6.6 % (4.0-5.6) H 11/27/23 02:22
Insulin Pump Settings
IP Diabetes Regimen
11/29/23 11/29/23 11/29/23
08:46 10:13 11:40
Glucose
POC Glucose 317 H 226 H 120 H
11/29/23 11/29/23 11/29/23
13:58 16:37 21:11
Glucose
POC Glucose 165 H 157 H 163 H
11/30/23
04:13
Glucose 126 H
POC Glucose
Meal type: Breakfast
Amount consumed: 100%
Patient Education
[2023-11-30] MEDS: NOVOLOG FLEXPEN-MODERATE RESISTANCE SC ×2 (08:18→14:11)
[2023-11-30] MEDS: PLAVIX 75 MG PO (08:25)
[2023-11-30] MEDS: LOW STRENGTH ASPIRIN 81 MG PO (08:25)
[2023-11-30] MEDS: SENOKOT-S 1 TABLET PO ×2 (08:25→20:39)
[2023-11-30] MEDS: PACERONE 200 MG PO (08:25)
[2023-11-30] MEDS: FLEXERIL 5 MG PO (08:25)
[2023-11-30] MEDS: NEURONTIN 300 MG PO ×3 (08:25→22:29)
[2023-11-30] MEDS: PROTONIX 40 MG PO (08:25)
[2023-11-30] MEDS: MAGNESIUM OXIDE 500 MG PO ×2 (08:25→20:39)
[2023-11-30] MEDS: GLUCOPHAGE 1000 MG PO ×2 (08:25→16:57)
--- NOTE | 2023-11-30 08:25 | W.PN.UPDATE ---
Update Note
Progress Note Update
comfortable in chair
no complaints
vss
sr
room air
labs ok
s/p Cabg pod #2
looks good
ambulate
tolerate sat>89
cxr with subcut air - repeat later today to follow progression,
needs cxr in am
Hopefully home soon
[2023-11-30] MEDS: LOPRESSOR 12.5 MG PO (08:26)
[2023-11-30] MEDS: BACTROBAN 2% OINTMENT 1 APPLIC NASAL ×2 (08:26→20:39)
[2023-11-30] MEDS: MUCINEX 600 MG PO ×2 (08:26→20:39)
[2023-11-30] MEDS: FARXIGA 10 MG PO (08:26)
--- NOTE | 2023-11-30 10:14 | PTCARENOTE ---
Bilateral pleural chest tubes taken off bulb suction and placed back to atrium at - 20 cm suction. No air leak noted at present. Epicardial wire insulated. Pt tolerated w/o issue. Will continue to monitor.
--- NOTE | 2023-11-30 12:56 | PTCARENOTE ---
Resting in chair during routine assessment. VSS. Chest tubes with minimal output. Assessment unchanged from prior.
[2023-11-30 13:47] LABS: Glucose - Point of Care 111 mg/dl (70-99)
[2023-11-30] MEDS: NSS 500 IV (14:10)
--- NOTE | 2023-11-30 15:02 | PTCARENOTE ---
ambulated approx [address] w/o issue. Steady gait. NO sob noted. VSS, attempting a nap at present. Assessment unchanged from prior.
--- NOTE | 2023-11-30 16:16 | CM ---
CM following for DC planning needs.
Met w/ patient at bedside. He reports that he is feeling well. He is hopeful for DC over w/e.
Reviewed post op MD appointments, coupons for [facility] and visit from [facility]itional [facility] RN.
Plan: Home w/ [facility] Transitional [facility] RN
--- NOTE | 2023-11-30 16:19 | W.PN.CARDCBS ---
Addendum entered and electronically signed by Dmitry Saucedo MD 11/30/23 16:35:
I saw and examined the patient.
The Automatic Trimming Sewer's note was reviewed and I agree with the note.
Comment: Briefly, 63-year-old man with past medical history of CAD status post PCI who presented with stuttering chest discomfort and was found to have NSTEMI
Subsequently underwent surgical revascularization on 11/28/2023
He is doing well postoperatively, out of bed to chair resting comfortably at the time of my exam
Pressors and inotropes weaned off
Maintaining sinus rhythm telemetry
Agree with medical management�aspirin/Plavix, high intensity statin, beta-angy
Original Note:
Today's Communication / Plan
-
continue post op care
follow HRs
Impression / Plan
-
PCP: Dr. Aria Kang
Primary financial market dealer: Dr. Hand
Assessment:
NSTEMI, peak Troponin 0.819
CAD
s/p 4.0 mm and 3.75 mm Xience to proximal and mid to distal RCA 02/27/12
s/p 4.0 mm Synergy to mid to distal RCA with patent previously placed proximal and mid RCA stents by cath 04/18/19
flush occlusion of the RCA, a 70-80% lesion in the distal aspect of the left main extending into a 70% ostial LAD lesion and an 80% ostial circumflex lesion by cath 11/26/23
s/p CABG with ANTONIO to LAD, COLT Y-graft from the ANTONIO to OM, SVG to PDA 11/28/23
s/p JEAN ligation with #40 clip 11/28/23
Carotid artery disease s/p LICA stent 05/01/15
HTN
HLD
GEORGI on CPAP
Active smoker
Daily ETOH use
Echo 04/18/19: Mild concentric LVH, EF 60-65%, trace MR, mild MAC
ECHO 11/27/23: EF 50 to 55%, inferolateral wall hypokinetic, basal inferior akinesis, mild concentric LVH, trace MR
Plan:
-Patient with NSTEMI on admission and then found to have MV CAD by cath same day. Troponin peaked at 0.819.
-s/p CABG with ANTONIO to LAD, COLT Y-graft from the ANTONIO to OM, SVG to PDA 11/28/23
-continue DAPT with aspirin and Plavix
-with some pleuritic discomfort likely from CTs. with airleak so placed back to suction. mgmt per CT surgery
-Remains in SR/SB on amiodarone 200 mg TID and lopressor 12.5mg BID. follow HRs
-was on toprol and lisinopril prior to admission.
-LDL 39 and outpatient dose of atorvastatin 80 mg daily continued
-cardiac rehab
-OOB/IS
-d/w nursing
Progress Note - Director Medical Science
Subjective
Date of Service: November 30, 2023
reports pleuritic discomfort.
Objective
Labs:
11/30/23 04:13
11/30/23 04:13
Labs
Hgb 8.2 g/dL (13.0-18.0) L 11/30/23 04:13
Hct 24.0 % (39.0-52.0) L 11/30/23 04:13
Plt Count 100 10^3/uL (130-400) L D 11/30/23 04:13
PT 15.7 Sec (11.4-14.6) H 11/28/23 12:06
INR 1.27 11/28/23 12:06
APTT 29.6 Sec (23.4-35.0) 11/28/23 12:06
Sodium 135 mmol/L (135-145) 11/30/23 04:13
Potassium 4.4 mmol/L (3.5-5.1) 11/30/23 04:13
BUN 28 mg/dl (9-20) H 11/30/23 04:13
Creatinine 0.6 mg/dL (0.7-1.3) L 11/30/23 04:13
Glucose 126 mg/dl (70-99) H 11/30/23 04:13
Vital Signs and I&O:
Vital Signs
Temp Pulse Resp BP Pulse Ox
98.7 F 51 16 137/49 98
11/30/23 11:55 11/30/23 11:55 11/30/23 11:55 11/30/23 10:35 11/30/23 11:55
Vital Signs
Temp Pulse Resp BP Pulse Ox
98.7 F 51 16 137/49 98
11/30/23 11:55 11/30/23 11:55 11/30/23 11:55 11/30/23 10:35 11/30/23 11:55
Intake & Output
11/28/23 11/29/23 11/30/23 12/01/23
07:59 07:59 07:59 07:59
Intake Total 1207 / 1207 847.7 / 1338.3 922.6 / 1172.6 290 / 290
Output Total 1855 / 1875 555 / 555 90 / 90
Balance 1207 / 1207 -1007.3 / -536.7 367.6 / 617.6 200 / 200
Physical Exam
Physical Exam
GEN: No distress, awake, alert, oriented x3
HEENT: supple, anicteric, mmm, eomi
LUNGS: Decreased BS B/L, no wheezes
CV: Reg, S1/S2, no murmur
EXT: No cyanosis, clubbing, edema
NEURO: Gross non-focal
SKIN: Warm, pink, dry. No rash. Sternotomy incision c/d/i. CT in place
[2023-11-30 16:57] LABS: Glucose - Point of Care 199 mg/dl (70-99)
[2023-11-30] MEDS: NOVOLOG FLEXPEN-MODERATE RESISTANCE 1 UNITS SC (16:57)
[2023-11-30] MEDS: ROXICODONE 5 MG PO (20:39)
--- NOTE | 2023-11-30 21:00 | PTCARENOTE ---
Patient received resting in bed. Patient's at bedside. Patient A+A+Ox3. No neurological deficits noted. Ambulating by self without difficulty. No c/o headache, dizziness or lightheadedness. Room air. SaO2 97%. Occasional moist
productive cough - Thick tannish secretions. No c/o SOB. Patient with two pleural chest tubes to suction - Intact - 10ml red drainage - No air leak or tidaling noted. Patient continues with subcutaneous emphysema (crepitus) noted over right and
left anterior chest. Chest tube dressing intact. Sinus Rhythm with PAC's. Heart rate 60's. V-Wire insulated. No c/o chest pain, pressure or discomfort. Normoactive bowel sounds. No BM. No c/o nausea. No vomiting. Voiding without
difficulty. Patient with no c/o back or flank pain. Positive, palpable pulses. Right groin site open to air. Right knee incision - Intact - Open to air. Right I.J. Cordis. Assessment as documented.
[2023-11-30] MEDS: LIPITOR 80 MG PO (22:29)
[2023-11-30 22:36] LABS: Glucose - Point of Care 130 mg/dl (70-99)
[2023-12-01] VITALS (9 sets, daily range): BP systolic 114–166; BP diastolic 53–73; PULSE 61; O2SAT 97–98; BMI 22.8
--- NOTE | 2023-12-01 | PTCARENOTE ---
Patient sleeping without difficulty. No further changes from previous assessment.
--- NOTE | 2023-12-01 04:35 | W.PN.CT ---
Addendum entered and electronically signed by Juanjose Brewer PA-C 12/01/23 09:21:
Correction: No postop A-fib on Mr. Fox. Postop a-fib was for a different patient.
Addendum entered and electronically signed by Arsalan Kaiser MD 12/01/23 09:00:
I saw and examined the patient.
The PA's note was reviewed and I agree with the note.
Comment:
POD#3 s/p CABG x 3/ELAA
No issues
Questionable brief postoperative AF - if recurrent episodes would consider anticoagulation, however, pt's JEAN has been excluded
SQ emphysema unchanged, no air leak on CTs on LCWS - no PTX on CXR, SQ slightly improved
Place CTs to water seal today, check CXR this afternoon - if CXR stable, will clamp CTs at MN for potential removal in AM tomorrow post AM CXR
D/C cordis
ASA/plavix, BB, statin. Holding amio secondary to sinus bradycardia in 60s
OOB/IS/ambulate
D/C planning for 2 days
Original Note:
Today's Communication / Plan
-
Plan:
-No major issues overnight. Hemodynamically and neurologically intact
-Noted to have SQ emphysema following mediastinal chest tube removal, no ptx, no air leak noted. F/u cxr this AM
-Monitor pleural chest tubes for possible d/c : 35/65
-Has had brief postop a-fib. Amiodarone and BB has been increased
-Cont. current meds (ASA, PLavix, Lipitor, Amio, Lopressor, Protonix)
-Consider Lasix, has RLE edema +1
-Consider d/c of cordis
-Maintain temporary v-wire (will cut before d/c home)
-Encourage use of IS
-OOB into chair/Ambulate
-F/U AM labs, pending
-Home in 1-2 days
Assessment / Plan
-
- NSTEMI/LM-CAD - s/p Cabg x 3 (Lovett-Lad, Ashlyn 'y-graft off Lovett' to Om, Ao-svg-Pda); R ev; LAAE # [address] King on 11/28/23, pod #3
- Intraop NOA: preserved EF pre 60-65% and post 70-75%, no wma. Jean without clot, completely occluded post clip. Severe plaque throughout the coronary tree
- CAD - s/p multiple RCA stents
- HTN/HLD
- DM II (HgA1c 6.6)
- PVD - s/p L carotid stent (patent on US 11/27/23)
- GEORGI - on CPAP
- Tobacco use (1/2 ppd, smokes pot)
- EtOH use
- Acute postop blood loss anemia- stable, no transfusion
- Acute postop thrombocytopenia
- Acute postop atelectasis
- Suspected acute postop pericarditis, + rub
- Acute postop hypovolemia with subsequent hypervolemia
- Acute postop SQ emphysema post mediastinal chest tube removal
Discussed patient care with: Cardiology, Nursing, Respiratory Therapy and Pharmacy
Subjective
Procedure
- s/p Cabg x 3 (Lovett-Lad, Ashlyn 'y-graft off Lovett' to Om, Ao-svg-Pda); R ev; LAAE # [address] King on 11/28/23
-
Date of Service: December 01, 2023
Pt c/o mild incisional pain, otherwise feels well
Objective Data
-
PT 15.7 Sec (11.4-14.6) H 11/28/23 12:06
INR 1.27 11/28/23 12:06
APTT 29.6 Sec (23.4-35.0) 11/28/23 12:06
Vital Signs
Vital Signs
Temp Pulse Resp BP Pulse Ox
98.9 F 66 16 111/58 97
11/30/23 22:25 12/01/23 02:00 11/30/23 22:25 11/30/23 22:25 11/30/23 22:25
CT Intake/Output/Weight
11/30/23 11/30/23 12/01/23
06:59 18:59 06:59
Intake Total 90 / 933.2 920 / 1440 520 / 1440
Output Total 430 / 600 110 / 135 25 / 135
Balance -340 / 333.2 810 / 1305 495 / 1305
SaO2: 97 (RA)
Physical Exam
-
General: Awake, Oriented and AOx3
Cardiovascular: Regular rate & rhythm, No Murmurs, Rub and No Gallop
Respiratory: Decreased Breath Sounds (at bases)
Sternum: Stable
Incision: Clean, Dry, Intact and Dressing Intact
Extremities: Edema +1
Data Reviewed
-
Lab Results: Results Reviewed
Medications: Active Meds Reviewed
Chest X-Ray: Report Reviewed and Image Reviewed
ECG: Report Reviewed and Image Reviewed
[2023-12-01] MEDS: TYLENOL 1000 MG PO ×3 (05:28→21:03)
[2023-12-01 05:59] LABS: Hematocrit 23.9 % (39.0-52.0); Hemoglobin 8.2 g/dL (13.0-18.0); Mean Corp Hgb Conc. 34.3 g/dL (33.0-37.0); Mean Corpuscular Hgb 34.7 pg (27.0-31.0); Mean Corpuscular Volume 101.3 fL (80.0-94.0); Mean Platelet Volume 10.6 fL (7.4-10.4); Platelet Count 112 10^3/uL (130-400); Red Blood Cell Count 2.36 10^6/uL (4.70-6.10); Red Cell Dist. Width 12.9 % (11.5-14.5); White Blood Cell Count 4.4 10^3/uL (4.8-10.8)
--- NOTE | 2023-12-01 06:00 | PTCARENOTE ---
Patient A+A+Ox3. No neurological deficits noted. AM lab work collected and sent. Portable CXR completed. Patient ambulated to bathroom by self. Voided. Standing scale weight 72.1 kg. OOB to chair. Assessment/Interventions as documented.
[2023-12-01] MEDS: ROXICODONE 5 MG PO ×2 (06:07→20:25)
[2023-12-01 06:35] LABS: Blood Urea Nitrogen 27 mg/dl (9-20); Carbon Dioxide 24 mmol/L (22-30); Chloride 109 mmol/L (98-107); Estimated Creatinine Clearance > 125 ml/min; Glucose 96 mg/dl (70-99); Potassium 4.2 mmol/L (3.5-5.1); Sodium 134 mmol/L (135-145); eGFR > 60.00
[2023-12-01] MEDS: NOVOLOG FLEXPEN-MODERATE RESISTANCE SC ×3 (08:04→17:01)
[2023-12-01] MEDS: NSS IV (08:06)
[2023-12-01] MEDS: FARXIGA 10 MG PO (08:24)
[2023-12-01] MEDS: PROTONIX 40 MG PO (08:24)
[2023-12-01] MEDS: GLUCOPHAGE 1000 MG PO ×2 (08:24→16:58)
[2023-12-01] MEDS: MUCINEX 600 MG PO ×2 (08:24→20:25)
[2023-12-01] MEDS: SENOKOT-S 1 TABLET PO ×2 (08:24→20:25)
[2023-12-01] MEDS: LOW STRENGTH ASPIRIN 81 MG PO (08:24)
[2023-12-01] MEDS: MAGNESIUM OXIDE 500 MG PO ×2 (08:24→20:25)
[2023-12-01] MEDS: PLAVIX 75 MG PO (08:24)
[2023-12-01] MEDS: NEURONTIN 300 MG PO ×3 (08:24→21:03)
[2023-12-01] MEDS: FLEXERIL 5 MG PO (08:25)
[2023-12-01] MEDS: BACTROBAN 2% OINTMENT 1 APPLIC NASAL ×2 (08:25→20:25)
--- NOTE | 2023-12-01 08:41 | PTCARENOTE ---
Assumed care of patient from shift production supervisor RN. AA/o x 3 . C/o some sternal discomfort. SR / SB on monitor. Epicardial wire insulated. Room air 95%. IS to 1000, Harsh productive cough with bee sputum. Chest tubes x 2 to - 20 cm suction. No air
leak noted. Crepitus noted in upper anterior chest. Abdomen soft and non tender. Passing flatus, appetite good. Voiding independently. Pulses palpable. Trace edema appreciated in lower extremities. Surgical sites well approximated. Plan for
day discussed.
[2023-12-01 12:28] LABS: Glucose - Point of Care 167 mg/dl (70-99)
[2023-12-01] MEDS: TYLENOL PO (15:07)
--- NOTE | 2023-12-01 16:26 | PTCARENOTE ---
Sleeping intermittently on assessment. Denies pain at present. VSS. Assessment unchanged from prior.
[2023-12-01 17:01] LABS: Glucose - Point of Care 128 mg/dl (70-99)
--- NOTE | 2023-12-01 20:34 | PTCARENOTE ---
Assumed pt care. Walking rounds completed with previous RN. Pt AAO x 4, reports 6/10 sternal pain/discomfort - PRN Roxicodone administered as ordered. Pt on RA, POX 96%, posterior BS clear/equal, productive cough present, denies SOB. CT's present to
H2O seal, crepitus present on CONSUELO & RUC. Pt in NSR on monitor, heart tones normal, distal pulses palpable, no edema noted. Up ad hero, ambulating independently. BS audible, good appetite. Voiding without issue. Sternal incision ANDI, surgical adhesive
present. R Groin & Knee ANDI. PIV x 1 present & patent. See AUG.
[2023-12-01] MEDS: LIPITOR 80 MG PO (21:03)
[2023-12-01] MEDS: TORADOL 15 MG IV (23:39)
--- NOTE | 2023-12-01 23:45 | PTCARENOTE ---
Pt harshly coughing & reporting increased pain. PRN Toradol administered for extreme pain. R & L CT's clamped as ordered. VS obtained. Pt resting in bed. No other changes.
--- NOTE | 2023-12-02 03:57 | W.PN.CT ---
Addendum entered and electronically signed by Arsalan Kaiser MD 12/02/23 08:51:
I saw and examined the patient.
The PA's note was reviewed and I agree with the note.
Comment:
POD#4 s/p CABG x 3, ELAA
No issues. CT clamped since MN. CXR this AM OK
D/C CT today
ASA/plavix, BB and amiodarone on hold for postoperative sinus bradycardia in 60s, lisinopril, lipitor
OOB/IS/ambulate
D/C home later today
Original Note:
Documented by User: Juanjose Brewer PA-C 12/02/23 06:23
Today's Communication / Plan
-
Plan:
-No major issues overnight. Hemodynamically and neurologically intact
-Has had postop bradycardia, Amiodarone and BB currently on hold
-Noted to have SQ emphysema following mediastinal chest tube removal
-Chest tube placed on water seal yesterday 11/30 and clamped @ midnight of 12/01, f/u cxr this AM is without ptx with improved SQ air to my eyes, F/u official cxr report
-Consider d/c of chest tubes: R/L pl 04/03
-Cont. current meds (ASA, PLavix, Lipitor, Amio, Lopressor, Protonix)
-May need to resume Lisinopril for BP control today, monitor BP
-Consider Lasix, has RLE edema +1
-Maintain temporary v-wire (will cut before d/c home)
-Encourage use of IS
-OOB into chair/Ambulate
-Home later today vs tomorrow
Assessment / Plan
-
Assessment:
- NSTEMI/LM-CAD - s/p Cabg x 3 (Lovett-Lad, Ashlyn 'y-graft off Lovett' to Om, Ao-svg-Pda); R evh; LAAE # [address] King on 11/28/23, pod #4
- Intraop NOA: preserved EF pre 60-65% and post 70-75%, no wma. Graciela without clot, completely occluded post clip. Severe plaque throughout the coronary tree
- CAD - s/p multiple RCA stents
- HTN/HLD
- DM II (HgA1c 6.6)
- PVD - s/p L carotid stent (patent on US 11/27/23)
- GEORGI - on CPAP
- Tobacco use (1/2 ppd, smokes pot)
- EtOH use
- Acute postop blood loss anemia- stable, no transfusion
- Acute postop thrombocytopenia
- Acute postop atelectasis
- Suspected acute postop pericarditis, + rub
- Acute postop hypovolemia with subsequent hypervolemia
- Acute postop SQ emphysema post mediastinal chest tube removal
Discussed patient care with: Cardiology, Nursing, Respiratory Therapy, Pharmacy and Care Team
Subjective
Procedure
s/p Cabg x 3 (Lovett-Lad, Ashlyn 'y-graft off Lovett' to Om, Ao-svg-Pda); R evh; LAAE # [address] King on 11/28/23,
-
Date of Service: December 02, 2023
Pt c/o mild incisional pain, otherwise feels well. Ambulating without difficulty. Okay with going home today
Objective Data
-
PT 15.7 Sec (11.4-14.6) H 11/28/23 12:06
INR 1.27 11/28/23 12:06
APTT 29.6 Sec (23.4-35.0) 11/28/23 12:06
Vital Signs
Vital Signs
Temp Pulse Resp BP Pulse Ox
98.7 F 70 18 128/73 96
12/01/23 23:43 12/01/23 23:40 12/01/23 23:43 12/01/23 23:40 12/01/23 23:43
CT Intake/Output/Weight
12/01/23 12/01/23 12/02/23
06:59 18:59 06:59
Intake Total 600 / 1520 510 / 910 400 / 910
Output Total 35 / 145 10 / 10
Balance 565 / 1375 500 / 900 400 / 900
SaO2: 96 (RA)
Physical Exam
-
General: Awake, Oriented and AOx3
Cardiovascular: Regular rate & rhythm, No Murmurs, No Rub and No Gallop
Respiratory: Decreased Breath Sounds (at bases, otherwise clear )
Sternum: Stable
Incision: Clean, Dry, Intact and Dressing Intact
Extremities: No Edema
Data Reviewed
-
Lab Results: Results Reviewed
Medications: Active Meds Reviewed
Chest X-Ray: Report Reviewed and Image Reviewed
ECG: Report Reviewed and Image Reviewed

Documented by User: Eleonora Carl PA-C 12/02/23 07:43
Today's Communication / Plan
-
Plan:
-No major issues overnight. Hemodynamically and neurologically intact
-Has had postop bradycardia, Amiodarone and BB currently on hold
-Noted to have SQ emphysema following mediastinal chest tube removal
-Chest tube placed on water seal yesterday 11/30 and clamped @ midnight of 12/01, f/u cxr this AM is without ptx with improved SQ air to my eyes, F/u official cxr report
-Consider d/c of chest tubes: R/L pl 04/03
-Cont. current meds (ASA, PLavix, Lipitor, Protonix) (Amio and Lopressor on hold for Bradycardia).
-May need to resume Lisinopril for BP control today, monitor BP
-Consider Lasix, has RLE edema +1
-Maintain temporary v-wire (will cut before d/c home)
-Encourage use of IS
-OOB into chair/Ambulate
-Home later today vs tomorrow
[2023-12-02 04:35] VITALS: BP 157/69
[2023-12-02] MEDS: ROXICODONE 5 MG PO (04:44)
[2023-12-02 04:48] LABS: Hematocrit 28.1 % (39.0-52.0); Hemoglobin 9.4 g/dL (13.0-18.0); Mean Corp Hgb Conc. 33.5 g/dL (33.0-37.0); Mean Corpuscular Hgb 34.7 pg (27.0-31.0); Mean Corpuscular Volume 103.7 fL (80.0-94.0); Mean Platelet Volume 10.5 fL (7.4-10.4); Platelet Count 148 10^3/uL (130-400); Red Blood Cell Count 2.71 10^6/uL (4.70-6.10); Red Cell Dist. Width 12.7 % (11.5-14.5); White Blood Cell Count 4.6 10^3/uL (4.8-10.8)
[2023-12-02 05:08] LABS: Blood Urea Nitrogen 29 mg/dl (9-20); Calcium 8.9 mg/dl (8.4-10.2); Carbon Dioxide 28 mmol/L (22-30); Chloride 106 mmol/L (98-107); Estimated Creatinine Clearance 110 ml/min; Glucose 109 mg/dl (70-99); Magnesium 2.3 mg/dl (1.6-2.3); Potassium 4.8 mmol/L (3.5-5.1); Sodium 136 mmol/L (135-145); eGFR > 60.00
--- NOTE | 2023-12-02 05:16 | PTCARENOTE ---
Pt sleeping throughout night, awoken during coughing episode. PRN Roxicodone administered. VS obtained. Labs drawn & sent. CT's remain clamped. VSS. No other changes.
[2023-12-02 06:00] VITALS: BMI 22.4
[2023-12-02] MEDS: TYLENOL 1000 MG PO (06:17)
[2023-12-02] MEDS: NOVOLOG FLEXPEN-MODERATE RESISTANCE SC ×2 (07:36→13:00)
[2023-12-02 08:26] VITALS: BP 142/67
--- NOTE | 2023-12-02 08:48 | PTCARENOTE ---
assumed care of pt from previous shift RN, sinus rhythm on tele, VSS, + peripheral pulses, no edema. Epicardial pacing wire cut as ordered. Lungs diminished, pox 96% on RA. +bs, tolerating PO intake, voids spontaneously. Surgical sites intact.
Pleural CTs removed as ordered. Plan of care reviewed w the pt and questions encouraged.
[2023-12-02] MEDS: LOW STRENGTH ASPIRIN 81 MG PO (09:38)
[2023-12-02] MEDS: SENOKOT-S 1 TABLET PO (09:38)
[2023-12-02] MEDS: NEURONTIN 300 MG PO (09:38)
[2023-12-02] MEDS: ZESTRIL 5 MG PO (09:38)
[2023-12-02] MEDS: PLAVIX 75 MG PO (09:38)
[2023-12-02] MEDS: FARXIGA 10 MG PO (09:38)
[2023-12-02] MEDS: GLUCOPHAGE 1000 MG PO (09:39)
[2023-12-02] MEDS: MUCINEX 600 MG PO (09:39)
[2023-12-02] MEDS: PROTONIX 40 MG PO (09:39)
[2023-12-02] MEDS: MAGNESIUM OXIDE 500 MG PO (09:39)
[2023-12-02] MEDS: BACTROBAN 2% OINTMENT 1 APPLIC NASAL (09:39)
[2023-12-02] MEDS: NSS IV (09:54)
[2023-12-02 11:41] VITALS: BP 116/47
--- NOTE | 2023-12-02 13:08 | PTCARENOTE ---
pt tolerated shower, awaiting discharge papers.
--- NOTE | 2023-12-02 13:44 | W.DCSUMMARY ---
Discharge Summary
Discharge Data
Date of Admission: 11/26/23
Date of Discharge: 12/02/23
Total time spent discharging patient (in min): 40
-
Pending Results: No
Hospital Course
Primary care physician:
Dr. Irina Kang MD.
Outpatient umbrella tipper hand:
Dr. Jairo Hand MD.
Inpatient consultants:
[facility]
Diabetes management nurse practitioner Tory MENSAH
Procedures:
1. Coronary artery bypass grafting x 3 with left internal mammary artery to left anterior descending coronary artery, right internal mammary artery utilized as a Y graft off left internal mammary artery to obtuse marginal, and saphenous vein graft
to posterior descending coronary artery.
2. Rigid sternal fixation
3. Left atrial appendage ligation with #40 AtriClip
Primary Diagnosis:
1. Left main multivessel coronary artery disease
2. Non ST elevated myocardial infarction
Secondary Diagnoses:
1. Tobacco abuse
2. Coronary artery disease status post multiple right coronary artery percutaneous interventions and stents
3. History of carotid stents
4. Obstructive sleep apnea with continuous positive air pressure machine
5. Axu-nsswblw-escroworv diabetes mellitus type 2 with hemoglobin A1c of 6.6
HPI:
Patient is extremely pleasant 63-year-old male who presented to [facility] on 11/26/2023 with complaints of chest pain that woke him up from sleep multiple times. Pain continued to recur him patient presented to the emergency department.
Patient was ruled in for a non st elevated myocardial infarction with troponin of 0.167. Subsequent cardiac catheterization revealed left main multivessel coronary artery disease. CT surgery was consulted. The patient was seen and evaluated, and
deemed an appropriate candidate to undergo the surgery described above.
Hospital course:
Patient tolerated the procedure well. He was transported from the operating room to the cardiovascular intensive care unit where he underwent his postoperative recovery. Patient was extubated in routine fashion on postoperative day 0 at 1607. He
remained on norepinephrine for pressor support. On postoperative day #1 norepinephrine was titrated off overnight. Mediastinal chest tube was removed and the patient's left and right pleural chest tube was placed to bulb suction. Falcon was
removed and Plavix was initiated. Beta-angy and amiodarone were held secondary to sinus bradycardia. On postoperative day 2 the patient was noted to have subcutaneous emphysema. Chest x-ray showed no pneumothorax. Chest tubes were placed back
to suction with no airleak and follow-up x-ray was unchanged. Patient was seen in consultation and followed by diabetes management and started on Farxiga. On postoperative day #3 chest tubes were placed to waterseal. Repeat chest x-ray showed no
change. Chest tubes were clamped at midnight. Cordis was removed. Patient was tolerating metformin. On postoperative day 4 patient's chest x-ray remained unchanged with the tubes clamped overnight. Right and left pleural chest tubes were
removed without issues. Patient was started on low-dose lisinopril at 5 mg twice daily for hypertension (was previously taking 20 mg twice daily prior to surgery). 2 view chest x-ray revealed no surgical concerns, temporary epicardial ventricular
pacing wire was cut at the skin without issues. Patient's case was discussed with attending physician and he was medically cleared to be discharged to home.
Note: post operative Amiodarone and beta-blockade therapy were held secondary to sinus bradycardia. Please follow-up with cardiology outpatient to discuss resuming beta-blockade.
Home medication changes:
Please pay attention to the following medication changes:
Take Acetaminophen 650 mg Q4H PRN-mild pain, fever
Take Aspirin 81 mg daily-s/p CABG x3
Take Plavix 75 mg daily-s/p CABG x3, SVG patency
Take Dapagliflozin 10 mg daily-NIDDMII
Take Guaifenesin 600 mg BID PRN-coungestion
Take Lisinopril 5 mg BID-HTN, s/p CABG x3
Take Oxycodone 5 mg Q6H LYC-oebmragc-ycebbx pain
Take Protonix 40 mg daily-GI prophylaxis
Take Sennosides-docusate 8.6-50 mg BID-stool softener while taking oxycodone. Hold/stop for loose stools or diarrhea.
Please stop taking the following medications:
Lisinopril 20 BID and replace with 5 mg BID. Evaluate for increase at follow-up with Cardiology, Dr. Yazan MD.
Toprol-XL 25 mg daily. Held for Bradycardia. Discuss resuming at follow-up with Cardiology, Dr. Yazan MD.
Discharge Plan
-
Patient Disposition: Home (Routine Discharge)
Discharge Diagnosis/Procedures: NSTEMI/CABG & JEAN clip
Condition: Good
Diet: Low Cholesterol and Low Sodium
Activity: No strenuous activity
Driving Restrictions: Not until seen by your Dr
Bathing Restrictions: OK to Shower
Other Services: Cardiac Rehab
Specialty Instructions: Weigh Daily- Call MD for wt gain/loss 3 lbs overnight/5 lbs in 1 week
Activity Restrictions/Additional Instructions:
ACTIVITY:
-No strenuous activity: no heavy lifting, pushing, pulling anything over 15 pounds for one month
-continue to use stairs as tolerated
DRIVING RESTRICTIONS:
-No driving for one month or until approved by your surgeon
WOUND CARE:
-Shower daily. Use soap & water.
-No lotions, creams or powders on incision area.
DIET:
-continue a low fat/low cholesterol diet.
-IF you are diabetic, continue carb controlled diet.
CARDIAC REHAB:
-Please make appointment to start in 5-6 weeks with your local hospital program. (See Cardiac Rehabilitation Discharge Booklet).
SPECIALTY INSTRUCTIONS:
-Weigh yourself daily. Call your physician for any weight gain/loss of 3 lbs overnight or 5 lbs in one week.
-REPORT any clicking noise or uneven appearance of your sternum to your surgeon immediately.
-If you smoke, you are instructed to quit. The [place] smoking hotline phone number is [phone]
Referrals:
CT Transitional Care Nurse [Outside] (The Cardiothoracic Transitional Care Nurse will call you to set up a visit in 1-2 days.)
[facility]. Cardiac Rehab [Outside] - 01/07/24 10:00 am
(Cardiac Rehab Orientation appointment is on 01/07/2024 at 10 AM
The Cardiac Rehab gym is located on the first floor of the [facility].)
Emelia Britton CRNP [Specified Professional Personl] - 01/21/24 10:20 am
David Soto MD [Active] - in one month (Obstructive lung disease seen on spirometry; need full PFTs)
Alexis King MD [Active] - 12/24/23 9:45 am
Aria Kang DO [Family Provider] -
Additional Discharge Medication Instructions: Please pay attention to the following medication changes:
Take Acetaminophen 650 mg Q4H PRN-mild pain, fever
Take Aspirin 81 mg daily-s/p CABG x3
Take Plavix 75 mg daily-s/p CABG x3, SVG patency
Take Dapagliflozin 10 mg daily-NIDDMII
Take Guaifenesin 600 mg BID PRN-coungestion
Take Lisinopril 5 mg BID-HTN, s/p CABG x3
Take Oxycodone 5 mg Q6H GKO-bqgpmtls-uewhhh pain
Take Protonix 40 mg daily-GI prophylaxis
Take Sennosides-docusate 8.6-50 mg BID-stool softener while taking oxycodone. Hold/stop for loose stools or diarrhea.
Please stop taking the following medications:
Lisinopril 20 BID and replace with 5 mg BID. Evaluate for increase at follow-up with Cardiology, Dr. Yazan MD.
Toprol-XL 25 mg daily. Held for Bradycardia. Discuss resuming at follow-up with Cardiology, Dr. Yazan MD.
Prescriptions:
New
aspirin [Children's Aspirin] 81 mg Tablet,Chewable
81 mg PO DAILY Qty: 0 0RF
Rx Instructions:
Please purchase [id number]
dapagliflozin propanediol 10 mg Tablet
10 mg PO DAILY Qty: 30 0RF
guaifenesin 600 mg Tablet Extended Release 12hr
600 mg PO Q12 PRN (Reason: Congestion) Qty: 0 0RF
Rx Instructions:
Please purchase [id number]. Take only as needed for congestion
clopidogrel 75 mg Tablet
75 mg PO DAILY Qty: 30 1RF
pantoprazole 40 mg Tablet,Delayed Release (Dr/Ec)
40 mg PO DAILY Qty: 30 1RF
oxycodone 5 mg Tablet
5 mg PO .Q6H PRN PRN (Reason: moderate-severe pain) Qty: 28 0RF
Rx Instructions:
Ongoing pain control. Attending physician Dr. Alexis King MD
sennosides-docusate sodium [Stool Softener-Stimulant Laxat] 8.6-50 mg Tablet
1 tab PO Q12 Qty: 0 0RF
Rx Instructions:
Purchase [id number]. Hold/stop for loose stools or diarrhea
acetaminophen 325 mg Tablet
650 mg PO Q4HPRN PRN (Reason: mild pain,headache,temp >101F ) Qty: 0 0RF
Rx Instructions:
Please purchase [id number]
lisinopril 5 mg Tablet
5 mg PO BID Qty: 60 1RF
Continued
atorvastatin 80 MG tablet
80 mg PO HS
aspirin [Murtaza Chewable Aspirin] 81 MG tablet,chewable
81 mg PO DAILY
metformin 500 MG tablet
1,000 mg PO BID Qty: 0 0RF
Discontinued
metoprolol succinate 25 MG tablet extended release 24 hr
25 mg PO DAILY 0RF
lisinopril 20 MG tablet
20 mg PO BID Qty: 180 3RF
Discharge Orders:
Discharge Patient (As Directed); Ordered 12/02/23
Ordered By: Eleonora Carl
Care Plan Goals
Care Plan Goals:
Problem: Readiness for enhanced knowledge related to diagnosis and treatment plan
Goal: Understand your diagnosis and treatment plan needs, including medications if applicable.
Instructions: Know your diagnosis, underlying causes and treatment plan options, including medications if applicable. Consult with your health care team to learn about your diagnosis and treatment plan, including medications if applicable.
Discharge Date and Time
Print Language: SUDANESE
--- NOTE | 2023-12-02 14:02 | W.[place]-PDMP ---
[place]-PD[place]
-
Checked the [place]- Pres[place] Drug Monitoring Program website, no red flags identified; safe to proceed with prescription.
--- NOTE | 2023-12-02 14:31 | PTCARENOTE ---
IV line removed, discharge instructions, follow up appointments and medication list reviewed w the pt and his , questions encouraged.
== END 2023-12-02 14:34 | disposition home or self-care (01) | DRG 234 ==
LOC: CVICU 10:26
PROVIDERS: Anesthesiology; Clinical Nurse Specialist Acute Care; Emergency Medicine; Internal Medicine Cardiovascular Disease; Physician Assistant Medical; Physician Assistant Surgical; ADMITTING PHYSICIAN Hospitalist; ATTENDING PHYSICIAN Thoracic Surgery (Cardiothoracic Vascular Surgery); CONSULT PHYSICIAN Internal Medicine Cardiovascular Disease; CONSULT PHYSICIAN Internal Medicine Critical Care Medicine; EMERGENCY PHYSICIAN Emergency Medicine; FAMILY PHYSICIAN Internal Medicine; OTHER PHYSICIAN Thoracic Surgery (Cardiothoracic Vascular Surgery)
PROC: 4A023N7 Measurement of Cardiac Sampling and Pressure, Left Heart, Percutaneous Approach (ICD-10-PCS; 2023-11-26)
PROC: B2111ZZ Fluoroscopy of Multiple Coronary Arteries using Low Osmolar Contrast (ICD-10-PCS; 2023-11-26)
PROC: 02100Z9 Bypass Coronary Artery, One Artery from Left Internal Mammary, Open Approach (ICD-10-PCS; 2023-11-28)
PROC: 02L70CK Occlusion of Left Atrial Appendage with Extraluminal Device, Open Approach (ICD-10-PCS; 2023-11-28)
PROC: 021009W Bypass Coronary Artery, One Artery from Aorta with Autologous Venous Tissue, Open Approach (ICD-10-PCS; 2023-11-28)
PROC: B24BZZ4 Ultrasonography of Heart with Aorta, Transesophageal (ICD-10-PCS; 2023-11-28)
PROC: 06BP4ZZ Excision of Right Saphenous Vein, Percutaneous Endoscopic Approach (ICD-10-PCS; 2023-11-28)
PROC: 02100Z8 Bypass Coronary Artery, One Artery from Right Internal Mammary, Open Approach (ICD-10-PCS; 2023-11-28)
PROC: 5A1221Z Performance of Cardiac Output, Continuous (ICD-10-PCS; 2023-11-28)
DX: I21.4 Non-ST elevation (NSTEMI) myocardial infarction (principal); D62 Acute posthemorrhagic anemia; J98.11 Atelectasis; I30.9 Acute pericarditis, unspecified; I25.10 Atherosclerotic heart disease of native coronary artery without angina pectoris; I10 Essential (primary) hypertension; E78.00 Pure hypercholesterolemia, unspecified; G47.33 Obstructive sleep apnea (adult) (pediatric); F17.210 Nicotine dependence, cigarettes, uncomplicated; E11.649 Type 2 diabetes mellitus with hypoglycemia without coma; F12.90 Cannabis use, unspecified, uncomplicated; J44.9 Chronic obstructive pulmonary disease, unspecified; D69.59 Other secondary thrombocytopenia; E86.1 Hypovolemia; E87.70 Fluid overload, unspecified; T81.82XA Emphysema (subcutaneous) resulting from a procedure, initial encounter; Y83.2 Surgical operation with anastomosis, bypass or graft as the cause of abnormal reaction of the patient, or of later complication, without mention of misadventure at the time of the procedure; F10.10 Alcohol abuse, uncomplicated; R00.1 Bradycardia, unspecified; I65.22 Occlusion and stenosis of left carotid artery; Z79.4 Long term (current) use of insulin; Z79.82 Long term (current) use of aspirin; Z79.899 Other long term (current) drug therapy; Z82.49 Family history of ischemic heart disease and other diseases of the circulatory system; Z95.5 Presence of coronary angioplasty implant and graft
CPT/HCPCS: 36600; 71045; 71046; 71250; 80048; 80053; 80061; 80306; 81003; 82248; 82330; 82565; 82805; 82947; 82962; 83036; 83735; 84132; 84302; 84484; 84520; 85014; 85018; 85025; 85027; 85049; 85610; 85730; 86850; 86900; 86901; 86920; 93005; 93306; 93312; 93320; 93325; 93458; 93880; 93922; 93925; 94002; 94010; 99285; C1894; P9045; Q9967

== ENCOUNTER 2024-01-23 10:49 | Outpatient (RCR) | payer OTHER, SELFPAY ==
[2024-01-15 14:15] LABS: Glucose - Point of Care 274 mg/dl (70-99)
[2024-01-15 15:04] LABS: Glucose - Point of Care 235 mg/dl (70-99)
[2024-01-16 09:15] LABS: Glucose - Point of Care 188 mg/dl (70-99)
[2024-01-16 10:01] LABS: Glucose - Point of Care 130 mg/dl (70-99)
[2024-01-18 09:13] LABS: Glucose - Point of Care 185 mg/dl (70-99)
[2024-01-18 10:08] LABS: Glucose - Point of Care 103 mg/dl (70-99)
[2024-01-21 09:19] LABS: Glucose - Point of Care 239 mg/dl (70-99)
[2024-01-21 09:58] LABS: Glucose - Point of Care 117 mg/dl (70-99)
[2024-01-23 09:22] LABS: Glucose - Point of Care 187 mg/dl (70-99)
[2024-01-23 10:16] LABS: Glucose - Point of Care 96 mg/dl (70-99)
== END 2024-01-23 23:59 | disposition home or self-care (01) ==
LOC: CRHB 10:49
PROVIDERS: ATTENDING PHYSICIAN Internal Medicine Cardiovascular Disease
DX: I25.10 Atherosclerotic heart disease of native coronary artery without angina pectoris (principal); Z95.1 Presence of aortocoronary bypass graft; I25.2 Old myocardial infarction
CPT/HCPCS: 82962; G0422; G0423

== ENCOUNTER 2024-02-20 09:29 | Outpatient (RCR) | payer OTHER, SELFPAY ==
[2024-01-25 09:21] LABS: Glucose - Point of Care 265 mg/dl (70-99)
[2024-01-25 10:22] LABS: Glucose - Point of Care 128 mg/dl (70-99)
[2024-01-28 09:09] LABS: Glucose - Point of Care 255 mg/dl (70-99)
[2024-01-28 10:10] LABS: Glucose - Point of Care 109 mg/dl (70-99)
[2024-01-30 09:12] LABS: Glucose - Point of Care 217 mg/dl (70-99)
[2024-01-30 10:19] LABS: Glucose - Point of Care 113 mg/dl (70-99)
[2024-02-01 09:14] LABS: Glucose - Point of Care 152 mg/dl (70-99)
[2024-02-01 10:15] LABS: Glucose - Point of Care 109 mg/dl (70-99)
[2024-02-04 09:15] LABS: Glucose - Point of Care 188 mg/dl (70-99)
[2024-02-04 10:09] LABS: Glucose - Point of Care 126 mg/dl (70-99)
[2024-02-06 09:16] LABS: Glucose - Point of Care 208 mg/dl (70-99)
[2024-02-06 10:12] LABS: Glucose - Point of Care 133 mg/dl (70-99)
[2024-02-08 09:22] LABS: Glucose - Point of Care 225 mg/dl (70-99)
[2024-02-08 10:19] LABS: Glucose - Point of Care 120 mg/dl (70-99)
[2024-02-11 09:12] LABS: Glucose - Point of Care 191 mg/dl (70-99)
[2024-02-11 10:09] LABS: Glucose - Point of Care 149 mg/dl (70-99)
[2024-02-15 09:57] LABS: Glucose - Point of Care 158 mg/dl (70-99)
== END 2024-02-20 23:59 | disposition home or self-care (01) ==
LOC: CRHB 09:29
PROVIDERS: ATTENDING PHYSICIAN Internal Medicine Cardiovascular Disease
DX: I25.10 Atherosclerotic heart disease of native coronary artery without angina pectoris (principal); Z95.1 Presence of aortocoronary bypass graft; I25.2 Old myocardial infarction
CPT/HCPCS: 82962; G0422; G0423

== ENCOUNTER 2024-03-07 10:55 | Outpatient (RCR) | payer OTHER, SELFPAY | END 2024-03-07 23:59 | disposition home or self-care (01) | LOC: CRHB 10:55 | PROVIDERS: ATTENDING PHYSICIAN Internal Medicine Cardiovascular Disease | DX: I25.10 Atherosclerotic heart disease of native coronary artery without angina pectoris (principal); Z95.1 Presence of aortocoronary bypass graft; I25.2 Old myocardial infarction | CPT/HCPCS: G0422; G0423 ==

== ENCOUNTER → 2024-03-11 15:15 | Outpatient (REF) | payer OTHER, SELFPAY | LOC: HWRAD 15:15 | PROVIDERS: ATTENDING PHYSICIAN Internal Medicine | DX: R93.89 Abnormal findings on diagnostic imaging of other specified body structures (principal); W19.XXXA Unspecified fall, initial encounter; G44.311 Acute post-traumatic headache, intractable; Z79.02 Long term (current) use of antithrombotics/antiplatelets | CPT/HCPCS: 70450; 71250 ==

== ENCOUNTER → 2024-03-25 10:45 | Outpatient (REF) | payer OTHER, SELFPAY | LOC: HWRAD 10:45 | PROVIDERS: ATTENDING PHYSICIAN Registered Nurse; FAMILY PHYSICIAN Internal Medicine | DX: I73.9 Peripheral vascular disease, unspecified (principal) | CPT/HCPCS: 75635; Q9967 ==

== ENCOUNTER → 2024-03-27 08:41 | Outpatient (REF) | payer OTHER, SELFPAY | LOC: HWRAD 08:41 | PROVIDERS: ATTENDING PHYSICIAN Internal Medicine | DX: Z00.00 Encounter for general adult medical examination without abnormal findings (principal); R05.1 Acute cough | CPT/HCPCS: 71046 ==

== ENCOUNTER 2024-04-18 09:32 | Outpatient (RCR) | payer OTHER, SELFPAY | END 2024-04-18 23:59 | disposition home or self-care (01) | LOC: CRHB 09:32 | PROVIDERS: ATTENDING PHYSICIAN Internal Medicine Cardiovascular Disease | DX: I25.10 Atherosclerotic heart disease of native coronary artery without angina pectoris (principal); Z95.1 Presence of aortocoronary bypass graft; I25.2 Old myocardial infarction | CPT/HCPCS: G0422; G0423 ==

== ENCOUNTER 2024-04-22 09:27 | Inpatient (IN) | payer OTHER, SELFPAY ==
[2024-04-17 10:41] VITALS: BMI 23.7
[2024-04-17 11:05] LABS: % Basophils 1.4 % (0-2); % Eosinophils 9.6 % (0-6); % Immature Granulocytes 0.6 % (0-0.5); % Lymphocytes 19.8 % (20.5-51.1); % Monocytes 12.2 % (1.7-9.3); % Neutrophils 56.4 % (42.2-75.2); Absolute Basophils 0.1 10^3/uL (0-0.2); Absolute Eosinophils 0.5 10^3/uL (0-0.7); Absolute Monocytes 0.6 10^3/uL (0.1-0.6); Absolute Neutrophils 2.8 10^3/uL (1.4-6.5); Hematocrit 31.8 % (39.0-52.0); Hemoglobin 9.8 g/dL (13.0-18.0); Mean Corp Hgb Conc. 30.8 g/dL (33.0-37.0); Mean Corpuscular Hgb 26.2 pg (27.0-31.0); Mean Platelet Volume 9.7 fL (7.4-10.4); Nucleated Red Blood Cells % 0 % (-); Platelet Count 323 10^3/uL (130-400); Red Blood Cell Count 3.74 10^6/uL (4.70-6.10)
[2024-04-17 11:14] LABS: APTT 27.9 Sec (23.4-35.0)
[2024-04-17 11:15] LABS: Blood Urea Nitrogen 23 mg/dl (9-20); Carbon Dioxide 27 mmol/L (22-30); Chloride 105 mmol/L (98-107); Estimated Creatinine Clearance 103 ml/min; Glucose 139 mg/dl (70-99); Potassium 5.4 mmol/L (3.5-5.1); Sodium 141 mmol/L (135-145); eGFR > 60.00
[2024-04-17 15:56] LABS: INR 0.93; PT 12.5 Sec (11.4-14.6)
[2024-04-22] VITALS (20 sets, daily range): BP systolic 111–200; BP diastolic 49–93
[2024-04-22] MEDS: PERIDEX 0.12% ORAL RINSE 15 ML PO (09:31)
[2024-04-22] MEDS: BACTROBAN NASAL 1 GRAM NASAL (09:32)
[2024-04-22 09:46] LABS: Glucose - Point of Care 142 mg/dl (70-99)
[2024-04-22 12:45] LABS: ACT-LR - POC 237 Seconds (116-155)
[2024-04-22 13:50] LABS: ACT-LR - POC 253 Seconds (116-155)
--- NOTE | 2024-04-22 14:46 | CON.INTV ---
Consultation
Consultation Request
Date/Time Consultation Requested: 04/22
Date/Time Consultation Performed: 04/22
Reason for Consultation: Critical care
Medical History
-
History of Present Illness:
History of primary obtained from records including outpatient records. Some history obtained from patient with patient currently in PACU, waking up from anesthesia. He is a 64-year-old male with history of coronary disease status post bypass
surgery November 2023, diabetes type 2, now status post aortoiliac stent placement 04/22/2024. It is noted that his systolic pressures greater than 200. He is denying chest pain, shortness of breath but admits to pain with the Falcon catheter. We are
asked to help from critical care standpoint.
Per outpatient records, he has stopped smoking since November 2023 and has cut down on alcohol intake since November 2023.
.
PMH hypertension, hyperlipidemia, coronary disease with multiple stents, status post bypass surgery November 2023, type 2 diabetes, mild obstructive lung disease/restrictive lung disease, pulm nodule stable since 2011, left carotid stenosis/stent, sleep
apnea on CPAP. Partially blind right eye status post stroke 2021/central retinal artery occlusion 2021
Past Medical History
Past Medical History: None (See above)
Past Surgical History: None (See above)
Social History
Tobacco: Smoker (Likely 30+ pack year, recently quit 2023)
Alcohol: Daily (Glasses of wine and few glasses of whiskey over the weekend, recently cut down since November 2023)
Drug: None and Marijuana (Daily marijuana in the past apparently last use November 2023)
Personal:
Living: With Family
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
Family History
Family History: Other (Father age 74, mother age 74 history of breast cancer. 2 brothers 2 sisters healthy)
Allergies / Home Medications
Allergies
Allergy/AdvReac Type Severity Reaction Status Date / Time
No Known Drug Allergies Allergy Unknown Verified 04/15/24 14:20
Home Medications
�Medication �Instructions �Recorded �Confirmed �Last Taken �Type
aspirin 81 mg chewable tablet 81 mg PO DAILY Blood Clot 05/11/15 04/22/24 04/22/24 06:00 History
(Murtaza Chewable Low Dose Aspirin) Prevention/Tx
atorvastatin 80 mg tablet 80 mg PO HS High Cholesterol 05/11/15 04/22/24 04/21/24 19:30 History
metformin 500 mg tablet 1,000 mg (2 x 500 mg) PO BID ##0 04/18/19 04/22/24 04/20/24 19:30 Rx
acetaminophen 325 mg tablet 650 mg (2 x 325 mg) PO Q4HPRN PRN 12/02/23 04/22/24 04/21/24 19:30 Rx
mild pain,headache,temp >101F #0
tabs
clopidogrel 75 mg tablet 75 mg PO DAILY #30 tabs 12/02/23 04/22/24 04/22/24 07:30 Rx
dapagliflozin propanediol 10 mg 10 mg PO DAILY #30 tabs 12/02/23 04/22/24 04/19/24 07:30 Rx
tablet
pantoprazole 40 mg tablet,delayed 40 mg PO DAILY GI prophylaxis #30 12/02/23 04/22/24 04/22/24 07:30 Rx
release tabs
lisinopril 10 mg tablet 10 mg PO BID 04/15/24 04/22/24 04/22/24 07:30 History
metoprolol succinate 25 mg 25 mg PO DAILY 04/15/24 04/22/24 04/22/24 07:30 History
tablet,extended release 24 hr
Review of Systems
-
All other systems: Negative unless noted (Recent fall with concussion 1 month prior to procedure)
Vitals / Labs / Diagnostic Testing
Vital Signs
Temp Pulse Resp BP Pulse Ox
98.5 F 71 21 200/78 100
04/22/24 14:15 04/22/24 14:17 04/22/24 14:17 04/22/24 14:26 04/22/24 14:17
Diagnostic Testing:
Physical Exam
-
HEENT: Normocephalic, Anicteric and Other (Bilateral groin site intact)
Cardiovascular: S1/S2, Regular Rhythm, Murmur (n), Rub (n) and Peripheral Edema (n)
Respiratory: Wheeze (n), Rales (n), Rhonchi (n) and Non-Labored Respirations
GI: Soft, Non Distended and Non Tender
Neurology: Awake (Waking up from anesthesia) and No Motor Deficits (Moving all extremities, complaint of Falcon catheter pain/penile pain)
Skin: Other (Left upper extremity A-line)
General: Comfortable (Otherwise comfortable appearing)
Assessment
-
64-year-old male with history of hypertension, hyperlipidemia, sleep apnea, diabetes, coronary disease with bypass surgery November 2019 for now status post aortoiliac stent 04/22/2024
S/p aorto iliac stent graft, 04/22/2024
Hypertension, poorly controlled
Systolic pressure 200s in the PACU
Anemia, baseline hemoglobin 9-10
Conditions present prior to admission
Hypertension/hyperlipidemia
Type 2 diabetes
Coronary disease, multiple stents
s/p CABG November 2023
Right eye blindness from central retinal artery occlusion 2021
history of TIA 2014 with right hand numbness
Left carotid stent 2014
Smoking history
Alcohol history
Marijuana history
Sleep apnea on CPAP
Plan/recommendations
At this time, patient complaining of Falcon catheter pain. Appears agitated because of Falcon. Denies chest pain, shortness of breath. Lying flat
Heart rate 70s, 97% saturation, adequate respiratory rate
Systolic pressure 200s
Left upper extremity A-line in place
awaiting post-op info
Moving forward
Patient with history of sinus bradycardia in the past post CABG. Presently heart rate in the 70s
Plan for cardene therapy for elevated blood pressure. BP improved to 150s/70s
Discussed with PACU nursing
Bilateral groin sites appear to be intact
Distal pulses intact, extremities warm
Vascular pulse checks
Aspirin/Plavix/subcutaneous heparin
Follow blood sugars
Alcohol history noted. However per outpatient records, patient has cut down significantly since November 2023
Follow closely for withdrawal symptoms
History of sleep apnea noted, on CPAP in the past
Last seen in the sleep clinic 2019
Will clarify details during hospital stay
Reviewed with PACU nursing
We will follow
TCCT 31 min
[2024-04-22] MEDS: CARDENE 200 IV ×2 (14:50→22:16)
[2024-04-22 15:01] LABS: Glucose - Point of Care 155 mg/dl (70-99)
[2024-04-22 15:12] LABS: Hematocrit 28.9 % (39.0-52.0); Mean Corp Hgb Conc. 31.1 g/dL (33.0-37.0); Mean Corpuscular Hgb 26.7 pg (27.0-31.0); Mean Corpuscular Volume 85.8 fL (80.0-94.0); Mean Platelet Volume 10.3 fL (7.4-10.4); Platelet Count 273 10^3/uL (130-400); Red Blood Cell Count 3.37 10^6/uL (4.70-6.10); Red Cell Dist. Width 15.1 % (11.5-14.5); White Blood Cell Count 8.3 10^3/uL (4.8-10.8)
[2024-04-22] MEDS: NSS 1000 IV (15:13)
[2024-04-22 15:21] LABS: APTT 29.1 Sec (23.4-35.0); INR 1.09; PT 13.9 Sec (11.4-14.6)
[2024-04-22 15:26] LABS: Blood Urea Nitrogen 19 mg/dl (9-20); Carbon Dioxide 23 mmol/L (22-30); Chloride 109 mmol/L (98-107); Estimated Creatinine Clearance 118 ml/min; Glucose 169 mg/dl (70-99); Potassium 4.4 mmol/L (3.5-5.1); Sodium 140 mmol/L (135-145); eGFR > 60.00
--- NOTE | 2024-04-22 15:52 | TRANSFER ---
Transferred to ICU, report phone and bedside to [facility]. dressings and circ checks performed. Patient comfortable except for Falcon urgency. On Terry for BP control per orders. Smoking Pipes Cleaner Reyes aware. Edwige goldman RN BSN. Edwige Goldman RN BSN.
--- NOTE | 2024-04-22 16:10 | PTCARENOTE ---
Pt arrived from PACU via bed with oxygen 4 liters nasal cannula, monitored, with left radial arterial line transduced. He is c/o the need to urinate, c/o 'pressure' across his lower abdomen, drawing his legs up. He was immediately bladder scanned
and his bladder was completely empty. Falcon catheter with large amount of pale yellow urine. Catheter is secured to his leg. Right AC#20g protective catheter flushed sluggishly. Left wrist #18g protective catheter with 0.9nss@ 80ml/hr and Cardene
@5mg/hr. Left radial arterial transduced, calibrated and monitored, all ports patent and secured. Palpable peripheral pulses. Neuro he is intact. Blind in his right eye 70%. Following simple commands. Bilateral groins sites ANDI with surgical glue
intact. He was informed of the plan of care and not to elevate the HOB>30 degrees. Call silver within reach. at the bedside and also aware of the plan.
--- NOTE | 2024-04-22 16:10 | PTCARENOTE ---
c/o 'pressure' lower abdomen/suprapubic. Bladderscanned, no urine in bladder. Falcon secured and draining clear yellow urine.
[2024-04-22] MEDS: MORPHINE SULFATE 2 MG IV ×2 (16:15→20:09)
--- NOTE | 2024-04-22 17:11 | OR.RPT ---
Operative Report
Operative Report
Date of Operation: 04/22/2024
Pre Op Diagnosis: Debilitating lower extremity claudication with severely calcified aorto-iliac occlusive disease
Post Op Diagnosis: Debilitating lower extremity claudication with severely calcified aorto-iliac occlusive disease
Procedure:
1.) Intravascular lithotripsy to BILATERAL common iliac arteries (12 mm x 30 mm L6 shockwave balloon)
2.) Intravascular lithotripsy to BILATERAL external iliac arteries (8 mm x 60 mm M5+ shockwave balloon)
3.) Aorto-iliac stent grafting [facility] Endologix AFX device (/)
4.) Balloon angioplasty and stenting of BILATERAL external iliac artery stenoses (8 mm x 59 mm GORE VBX stents bilaterally)
5.) Introduce wire/catheter to aorta from bilateral femoral artery access
6.) Ultrasound guided percutaneous access to the bilateral common femoral arteries
7.) Proglide closure of the bilateral common femoral artery access sites
Surgeon: Terry Falcon III, MD
Help Desk Technician: Ivy Brown MD PGY-8
Anesthesia: General
Complications: None
Estimated Blood Loss: 50 cc
History and Indications for Procedure: 64 yo male with debilitating lower extremity claudication and calcified aorto-iliac occlusive disease
Procedure in Detail: Jairo Fox was correctly identified and placed supine on the operating table. After adequate induction of anesthesia the abdomen, pelvis and bilateral groins were positioned, prepped and draped in the usual sterile fashion.
Preoperative antibiotics were administered. A timeout procedure was performed with the nursing and anesthesia staff confirming the patient�s identity as well as the nature and laterality of the procedure.
Under ultrasound guidance, bilateral femoral artery sheath access was obtained. The arteries were patent. A pre-close technique was performed on the right femoral artery access with 2 offset Proglide closure devices. The sutures were secured and
tucked under surgical towels for use at the end of the case. An 8 Fr sheath was placed into the left femoral access. An 8 Fr sheath was placed into the right femoral access. The patient was systemically heparinized.
From the left femoral access using a glidewire and KMP catheter we navigated into the abdominal aorta. I exchanged out for a HydroST 0.014 wire. On the right using a Quickcross catheter and glidewire I navigated across the calcified common iliac
artery occlusion and into the aorta. Over a Bentson wire I predilated the occlusion with a 5 mm angioplasty balloon. I then exchanged out for a 0.014 wire.
Due to the heavily calcified nature of the bilateral common iliac artery disease and in an effort to modify the calcium to achieve maximum luminal gain with endovascular intervention I elected to proceed with intravascular lithotripsy. A 12 mm x 30
mm Shockwave balloon was placed across the right common iliac artery stenosis under roadmap guidance. Alternating rounds of lithotripsy pulse delivery at sub-nominal pressure and angioplasty at nominal pressure was performed across the stenosis. In
between rounds of pulse delivery and angioplasty the balloon was deflated and repositioned under roadmap guidance. 180 pulses were delivered. I then removed the IVL catheter and re-introduced it on the left. I positioned the catheter across the
calcified left common iliac artery stenosis and used the remaining 120 pulses in a similar fashion as above.
Due to the heavily calcified nature of the bilateral external iliac artery disease and in an effort to modify the calcium to achieve maximum luminal gain with endovascular intervention I elected to proceed with intravascular lithotripsy. A 8 mm x 60
mm Shockwave balloon was placed across the left external iliac artery stenosis under roadmap guidance. Alternating rounds of lithotripsy pulse delivery at sub-nominal pressure and angioplasty at nominal pressure was performed across the stenosis. In
between rounds of pulse delivery and angioplasty the balloon was deflated and repositioned under roadmap guidance.150 pulses were delivered. I then removed the IVL catheter and re-introduced it on the right. I positioned the catheter across the
calcified right external iliac artery stenosis and used the remaining 150 pulses in a similar fashion as above.
Following this we proceeded with aorto-iliac stent grafting. From the right femoral access, a KMP catheter and 0.014 wire were then advanced to the proximal descending thoracic aorta. The wire was exchanged out through the KMP catheter for a
Lunderquist wire. From the left femoral access a wire exchange was performed for a Bentson wire and this was positioned in the abdominal aorta.
Over the Lunderquist wire in the right femoral access I placed the AFX introducer sheath and advanced the radio-opaque sheath tip to the abdominal aorta. An En-Snare catheter was placed over the Bentson wire from the left femoral access and advanced
to the aortic bifurcation. The En-Snare was then advanced through to the catheter tip.
The contralateral limb wire of the AFX2 main body was introduced through the introducer sheath and advanced to the aortic bifurcation. The 22 - 40 /13 - 40 AFX2 bifurcated main body was then loaded onto the Lunderquist wire and advanced through the
introducer sheath. The wire was snared from the contralateral side and pulled out the left femoral access and the AFX2 main body was advanced until the limbs were above the aortic bifurcation. The entire system was then pulled down onto the aortic
bifurcation. The main body was then deployed by pulling the control cord.
The contralateral limb was then deployed by pulling the yellow limb cover. Once this was completed I advanced a pigtail catheter over the contralateral limb wire until the tip was in contact with the wire lock. The contralateral limb was then pulled
as I advanced the pigtail up to release it from the wire lock. The wire was removed and the formed pigtail catheter was then advanced proximally.
The ipsilateral limb was deployed by pinning the inner core and retracting the AFX introducer sheath.
The delivery system was removed. A 12 mm x 40 mm balloon and a 12 mm x 60 mm balloon were introduced on via the right and left femoral access, respectively, and used to profile the main body, aortic bifurcation and iliac limbs bilaterally.
A completion aortogram demonstrated an excellent technical result. There was brisk flow through the stent and iliac limbs. The iliac bifurcations were preserved bilaterally. Residual stenoses were identified bilaterally in the external iliac
arteries. These were each treated with 8 mm x 59 mm GORE VBX stents. Each stent was positioned in the desired location individually under roadmap guidance and deployed. Completion arteriogram demonstrated an excellent result with widely patent
stents and no residual stenosis.
At this point we concluded the case. A single Proglide closure device was deployed on the left. The knots were secured and hemostasis achieved. The right Proglide sutures were secured after removing the sheath and wire. Protamine was administered.
Additional pressure was applied to the puncture sites bilaterally for 10 minutes. Hemostasis was achieved bilaterally.
Sterile dressings were applied.
The patient tolerated the procedure well and was taken to the PACU in stable condition.
Attestation: I was present and responsible for the entire procedure
Signed:
Terry Falcon III, MD
[facility] Surgery
[phone] (cell)
[2024-04-22] MEDS: ROXICODONE 5 MG PO ×2 (17:15→23:13)
[2024-04-22 18:26] LABS: Glucose - Point of Care 182 mg/dl (70-99)
[2024-04-22 19:53] LABS: Magnesium 1.5 mg/dl (1.6-2.3); Phosphorus 3.3 mg/dl (2.5-4.5)
--- NOTE | 2024-04-22 20:00 | PTCARENOTE ---
assessment technician, pt aaox3, Neuro checks/NV checks per work list doc- WNL. B/L groin sites with skin glue intact-- R groin w small area ecchymotic. Sat 99% on 4L NC. B/L IV WNL- cardene gtt and IVF infusing as documented. Corona cath with adequate amt
clear yellow urine. pt asking multiple times for corona cath to be removed- re--educated on need for corona cath to remain in as well as POC. call silver with pt.
[2024-04-22] MEDS: LIPITOR 80 MG PO (20:10)
[2024-04-22] MEDS: ZESTRIL 10 MG PO (20:10)
[2024-04-22 22:01] LABS: Glucose - Point of Care 219 mg/dl (70-99)
[2024-04-22] MEDS: NOVOLOG FLEXPEN-LOW RESISTANCE 2 UNITS SC (22:11)
[2024-04-23] VITALS (17 sets, daily range): BP systolic 109–167; BP diastolic 50–91; BMI 23.9
--- NOTE | 2024-04-23 | PTCARENOTE ---
no changes in pt assessment.
[2024-04-23] MEDS: NSS 1000 IV ×2 (03:35→16:43)
[2024-04-23] MEDS: ROXICODONE 5 MG PO ×3 (03:48→17:13)
[2024-04-23 04:12] LABS: Hematocrit 25.5 % (39.0-52.0); Hemoglobin 8.2 g/dL (13.0-18.0); Mean Corp Hgb Conc. 32.2 g/dL (33.0-37.0); Mean Corpuscular Hgb 27.2 pg (27.0-31.0); Mean Corpuscular Volume 84.4 fL (80.0-94.0); Mean Platelet Volume 10.4 fL (7.4-10.4); Platelet Count 264 10^3/uL (130-400); Red Blood Cell Count 3.02 10^6/uL (4.70-6.10); White Blood Cell Count 6.5 10^3/uL (4.8-10.8)
[2024-04-23 04:32] LABS: Blood Urea Nitrogen 18 mg/dl (9-20); Calcium 8.6 mg/dl (8.4-10.2); Carbon Dioxide 23 mmol/L (22-30); Chloride 107 mmol/L (98-107); Estimated Creatinine Clearance 101 ml/min; Glucose 167 mg/dl (70-99); Potassium 4.5 mmol/L (3.5-5.1); Sodium 137 mmol/L (135-145); eGFR > 60.00
--- NOTE | 2024-04-23 05:30 | PTCARENOTE ---
alecia positional when pt moving arm, pt agitated/yelling out bc of alecia alarming. pt frustrated bc he can not read his book bc of alecia alarming. discussed the process for having lines and monitors after the surgery pt had yesterday. Discussed with
Александр FLOOR ASSOCIATE- no further need for alecia at this time as BP stable/cardene gtt off since 26. L kiya STREETER d/c'd.
[2024-04-23] MEDS: MAGNESIUM SULFATE 50 IV (07:05)
--- NOTE | 2024-04-23 07:39 | W.PN.VS ---
Addendum entered and electronically signed by Anurag Meza MD 04/23/24 11:45:
Seen and examined with MADINA Ramesh earlier this AM. This is a late entry. Agree with findings as noted above. Pt noted slight abd pain/discomfort generalized. On exam/ Abd soft, ND. Mild diffuse tender. Groins flat b/l. Small inc c/d/i b/l. Feet
warm, palp pedal pulses. Plan/ As discussed and noted below. If continued abd pain, will obtain CTA abd/pelvis.
Original Note:
Today's Communication / Plan
-
Patient seen and examined at bedside with Dr. Anurag Meza, below plan reviewed with attending.
Assessment/Plan
-
Assessment: 64-year-old male POD 1 Aorto-iliac stent grafting wtih Endologix AFX device
Plan:
Discontinue Falcon catheter
OOB to chair with progression ambulation as tolerated
Continue dual antiplatelet therapy of clopidogrel 75 mg p.o. daily and aspirin 81 mg p.o. daily
Continue statin therapy
Subjective Data
-
Date of Service: April 23, 2024
Patient seen evaluated bedside, does endorse some minimal abdominal discomfort but is hungry. Denies nausea, vomiting, fever, chills.
Objective Data
-
Vital Signs
Temp Pulse Resp BP Pulse Ox
97.9 F 63 17 132/63 98
04/23/24 03:50 04/23/24 05:30 04/23/24 05:30 04/23/24 04:00 04/23/24 05:30
Intake and Output
04/22/24 04/23/24 04/24/24
06:59 06:59 06:59
Intake Total 2951.5 / 2951.5
Output Total 1865 / 1865
Balance 1086.5 / 1086.5
Intake:
Oral fluids 1454 / 1454
IV fluids (Total) 1497.5 / 1497.5
Cardene 187.5 / 187.5
Ns 110 / 110
Nss 1,000 ml @ 80 mls/hr IV . 1200 / 1200
[id number] [facility] Rx#:[id number]
Output:
Urine, Falcon 1864 / 1864
Lab Results
04/23/24 03:36
04/23/24 03:36
Calcium 8.6 mg/dl (8.4-10.2) 04/23/24 03:36
Phosphorus Cancelled 04/22/24 15:36
Magnesium Cancelled 04/22/24 15:36
Physical Exam
-
AAOx3, no apparent distress
No tachycardia
No dyspnea
ABD flat, nontender, nondistended
Bilateral groin sites CDI, Exofin glue intact, no evidence of hematoma
Bilateral feet warm, palpable DP pulse
[2024-04-23] MEDS: NOVOLOG FLEXPEN-LOW RESISTANCE SC (07:46)
[2024-04-23] MEDS: FARXIGA 10 MG PO (07:46)
[2024-04-23] MEDS: TOPROL XL 25 MG PO (07:47)
[2024-04-23] MEDS: PLAVIX 75 MG PO (07:47)
[2024-04-23] MEDS: LOW STRENGTH ASPIRIN 81 MG PO (07:47)
[2024-04-23] MEDS: PROTONIX 40 MG PO (07:47)
[2024-04-23] MEDS: HEPARIN 5000 UNITS SC ×2 (07:48→16:44)
[2024-04-23] MEDS: ZESTRIL 10 MG PO ×2 (07:48→19:57)
--- NOTE | 2024-04-23 07:53 | W.PN.INTV ---
Today's Communication / Plan
Recommendations
Continue management per vascular surgery
Antiplatelet therapy
Out of bed to chair, ambulate
Recommend follow-up in the sleep clinic
Assessment
-
64-year-old male with history of hypertension, hyperlipidemia, sleep apnea, diabetes, coronary disease with bypass surgery November 2019 for now status post aortoiliac stent 04/22/2024
S/p aorto iliac stent graft, 04/22/2024
Balloon angioplasty/stent of bilateral External iliac artery stenosis
Hypertension, poorly controlled
Systolic pressure 200s in the PACU
Anemia, baseline hemoglobin 9-10
Conditions present prior to admission
Hypertension/hyperlipidemia
Type 2 diabetes
Coronary disease, multiple stents
s/p CABG November 2023
Right eye blindness from central retinal artery occlusion 2021
history of TIA 2014 with right hand numbness
Left carotid stent 2014
Smoking history
Alcohol history
Marijuana history
Sleep apnea on CPAP
Plan/recommendations
At this time, patient appears comfortable, much improved since Falcon catheter removal
Blood pressure stable overnight, off Cardene
Reviewed postoperative course
Moving forward
Blood pressure improved
Bilateral groin sites appear to be intact
Distal pulses intact, extremities warm
Denies significant abdominal discomfort
Aspirin/Plavix/subcutaneous heparin
Follow blood sugars
Alcohol history noted. However per outpatient records, patient has cut down significantly since November 2023
Follow closely for withdrawal symptoms
History of sleep apnea noted, on CPAP in the past
Last seen in the sleep clinic 2019
Recommend follow-up
Ongoing disposition efforts noted
Possible discharge later today
Subjective Dataa
Subjective Data
Date of Service:
Date of Service: April 23, 2024
Subjective:
Patient is feeling improved. Falcon catheter has been discontinued. Sitting in chair. Has mild groin discomfort otherwise denies shortness of breath, chest pain, nausea
Objective Data
Data Reviewed
Vital Signs / I&O / Oxygen:
Vital Signs
Temp Pulse Resp BP Pulse Ox
97.9 F 63 17 148/62 98
04/23/24 03:50 04/23/24 07:47 04/23/24 05:30 04/23/24 07:47 04/23/24 05:30
Intake and Output
04/22/24 04/23/24 04/24/24
06:59 06:59 06:59
Intake Total 2951.5 / 2951.5
Output Total 1865 / 1865
Balance 1086.5 / 1086.5
SaO2 98
Nasal Cannula flow liters per 4
minute
Physical Exam
General: Comfortable
HEENT: Normocephalic and Anicteric
Cardiovascular: S1-S2, Regular Rhythm, Murmur (n), Rub (n) and Peripheral Edema (n)
Respiratory: Wheeze (n), Crackles (n) and Rhonchi (n)
GI: Soft, Non Distended and Non Tender
Neurology: Awake, Alert and No Motor Deficits
Skin: Cyanosis (n) and Jaundice (n)
Labs/Micro/Reports
Lab Data
04/23/24 03:36
04/23/24 03:36
Laboratory Results
04/22/24 04/23/24
14:54 03:36
PT 13.9 14.0
INR 1.09 1.10
APTT 29.1 24.0
[2024-04-23 07:55] LABS: Glucose - Point of Care 133 mg/dl (70-99)
--- NOTE | 2024-04-23 09:31 | PTCARENOTE ---
Received pt lying in bed. Dr Meza at bedside to see pt. Ezekiel weiss'd per orders @ 0800, due to void 1400. Assisted x1 OOB to chair, tolerated well. Later walked to BR to brush teeth w/ stand by assist. Pt reports 6/10 groin pain, 5mg PO Rehana given and
pain decreased to 4/10. VSS. SB-NSR w/ 1st degree AVB on monitor. Matheus groins ANDI w/ surgical adhesive, c/d/i, slight ecchymosis on R groin. Neurovascular checks wnl. Will continue to monitor closely.
[2024-04-23] MEDS: NOVOLOG FLEXPEN-LOW RESISTANCE 1 UNITS SC ×2 (11:06→18:29)
[2024-04-23 11:16] LABS: Glucose - Point of Care 193 mg/dl (70-99)
[2024-04-23 12:49] LABS: Lactic Acid 2.9 mmol/L (0.7-2.0)
[2024-04-23] MEDS: TYLENOL 650 MG PO ×2 (13:01→17:14)
--- NOTE | 2024-04-23 13:14 | W.PN.UPDATE ---
Update Note
Progress Note Update
CT images reviewed. No evidence of any celiac and SMA atherosclerotic plaque at the origins but no biotic problems. Aorta is patent with no rupture or bleeding. Stents are patent. Internal iliac artery patent (right side with severe chronic
plaque at the origin will await radiologist dictation for any other findings but nothing that I see vessel that is striking. Likely pain related to stretch from stents. Of note bladder is also fairly distended, could be source of his pain. If
patient doesn't void adequately, will check residuals.
--- NOTE | 2024-04-23 13:42 | PTCARENOTE ---
Voided 300ml's clear yellow urine, still with some lower abdominal discomfort. Post void residual 320ml's vis bladder scan. Vonnie MENSAH notified via TT.
[2024-04-23] MEDS: NSS 500 IV (14:18)
--- NOTE | 2024-04-23 14:24 | PTCARENOTE ---
Lactic Acid 2.9, 500 ml NS bolus ordered and infusing now. VSS. Pt reported 4-5/10 saravanan groin pain, 650mg PO Tylenol given.
--- NOTE | 2024-04-23 15:00 | PTCARENOTE ---
Bedside walking rounds report received. Bilateral groin incisions cdi with surgical skin adhesive intact: small amt of ecchymosis around perimeters of incisions. Bilateral dp pulses verified as palpable. Sinus bradycardia with freq pac's on monitor.
Room air.
--- NOTE | 2024-04-23 16:58 | CM ---
Patient seen at bedside in ICU. Patient lives in a 2 story home with no DME at home. Patient stated that he uses the [facility] and PCP is Dr. Kang. Patient lives with his . Patient awaiting therapy assessment. Patient would like to go
home but open to recommendations. CM will continue to follow for discharge planning needs.
Plan; home with VN vs home with no needs.
--- NOTE | 2024-04-23 17:00 | PTCARENOTE ---
Repeat lactic acid drawn: decreased to 1.9.
[2024-04-23 17:24] LABS: Lactic Acid 1.9 mmol/L (0.7-2.0)
[2024-04-23] MEDS: LIPITOR 80 MG PO (18:37)
[2024-04-23 18:44] LABS: Glucose - Point of Care 161 mg/dl (70-99)
--- NOTE | 2024-04-23 20:39 | PTCARENOTE ---
assumed care of patient @ 1900. received pt laying in bed, AOx3. VSS on RA. mild c/o pain 2/10 in b/l groins. SR/SB with frequent PACs. +PP - E. Lungs clear, diminished satting high 90s. + productive cough with bee mucus. Voiding clear yellow urine
in urinal. b/l groin incisions CDI MARINE FITTER. PIV patent. Saline running at 80/hr. pt resting comfortably in bed with call silver within reach .
[2024-04-23 21:43] LABS: Glucose - Point of Care 227 mg/dl (70-99)
[2024-04-24] VITALS (12 sets, daily range): BP systolic 112–174; BP diastolic 65–99; BMI 24.0
[2024-04-24] MEDS: HEPARIN 5000 UNITS SC ×2 (00:07→08:04)
[2024-04-24] MEDS: APRESOLINE 10 MG IV (00:21)
--- NOTE | 2024-04-24 00:24 | PTCARENOTE ---
BP high 170s/90s, pt denies pain/resting comfortably. 10 of hydralazine ordered and given. will recheck BP
[2024-04-24] MEDS: ROXICODONE 5 MG PO (01:01)
[2024-04-24] MEDS: MORPHINE SULFATE 2 MG IV (04:22)
[2024-04-24] MEDS: NSS IV (04:50)
--- NOTE | 2024-04-24 04:52 | PTCARENOTE ---
pt has severe R groin pain, groin sites soft, WNL- per ROBOTIC MACHINE TENDER PRODUCTION Flynn give 2 of morphine
[2024-04-24 04:59] LABS: Hematocrit 27.8 % (39.0-52.0); Hemoglobin 8.8 g/dL (13.0-18.0); Mean Corp Hgb Conc. 31.7 g/dL (33.0-37.0); Mean Corpuscular Hgb 26.5 pg (27.0-31.0); Mean Corpuscular Volume 83.7 fL (80.0-94.0); Mean Platelet Volume 10.4 fL (7.4-10.4); Platelet Count 249 10^3/uL (130-400); Red Blood Cell Count 3.32 10^6/uL (4.70-6.10); Red Cell Dist. Width 15.3 % (11.5-14.5)
[2024-04-24 05:03] LABS: Blood Urea Nitrogen 15 mg/dl (9-20); Calcium 8.9 mg/dl (8.4-10.2); Carbon Dioxide 20 mmol/L (22-30); Chloride 104 mmol/L (98-107); Estimated Creatinine Clearance 118 ml/min; Glucose 163 mg/dl (70-99); Potassium 4.3 mmol/L (3.5-5.1); Sodium 136 mmol/L (135-145); eGFR > 60.00
[2024-04-24 07:38] LABS: Glucose - Point of Care 179 mg/dl (70-99)
--- NOTE | 2024-04-24 07:42 | W.PN.INTV ---
Today's Communication / Plan
Recommendations
Out of bed to chair, ambulate
Continue antiplatelet therapy
Follow blood sugars, resume outpatient regimen at the time of discharge. Metformin currently on hold
Continue with sliding scale insulin
Disposition efforts
Assessment
-
64-year-old male with history of hypertension, hyperlipidemia, sleep apnea, diabetes, coronary disease with bypass surgery November 2019 for now status post aortoiliac stent 04/22/2024
S/p aorto iliac stent graft, 04/22/2024
Balloon angioplasty/stent of bilateral External iliac artery stenosis
Hypertension, poorly controlled
Systolic pressure 200s in the PACU
Anemia, baseline hemoglobin 9-10
Conditions present prior to admission
Hypertension/hyperlipidemia
Type 2 diabetes
Coronary disease, multiple stents
s/p CABG November 2023
Right eye blindness from central retinal artery occlusion 2021
history of TIA 2014 with right hand numbness
Left carotid stent 2014
Smoking history
Alcohol history
Marijuana history
Sleep apnea on CPAP
Plan/recommendations
At this time, patient appears comfortable, less groin pain this morning
Blood pressure noted overnight. Mildly elevated blood sugars noted
Abdominal CT imaging without any acute findings. Lactate improved
Moving forward
Bilateral groin sites appear to be intact, vascular chest evaluated this morning
Distal pulses intact, extremities warm
Denies significant abdominal discomfort
Aspirin/Plavix/subcutaneous heparin
Follow blood sugars, mildly elevated
Resume outpatient regimen at discretion of vascular surgery
Hold metformin for now, continue Farxiga and continue with sliding scale
Will hold metformin for now
Follow-up closely
Alcohol history noted. However per outpatient records, patient has cut down significantly since November 2023
Follow closely for withdrawal symptoms
History of sleep apnea noted, on CPAP in the past
Last seen in the sleep clinic 2019
Recommend follow-up
Ongoing disposition efforts noted
Possible discharge later today
Reviewed with patient and at bedside
Subjective Dataa
Subjective Data
Date of Service:
Date of Service: April 24, 2024
Subjective:
Patient complaining of right groin pain overnight, this morning no pain. Denies shortness of breath, chest pain. Fatigue, wants to sleep. Did not sleep well overnight. at bedside
Objective Data
Data Reviewed
Vital Signs / I&O / Oxygen:
Vital Signs
Temp Pulse Resp BP Pulse Ox
98.9 F 69 16 112/70 97
04/24/24 07:00 04/24/24 07:00 04/24/24 04:00 04/24/24 07:00 04/24/24 04:00
Intake and Output
04/23/24 04/24/24 04/25/24
06:59 06:59 06:59
Intake Total 2951.5 / 3031.5 2710 / 2710
Output Total 1864 1850 / 1850
Balance 1086.5 / 1016.5 860 / 860
SaO2 97
Nasal Cannula flow liters per 4
minute
Physical Exam
General: Comfortable
HEENT: Normocephalic and Anicteric
Cardiovascular: S1-S2, Regular Rhythm, Murmur (n), Rub (n) and Peripheral Edema (n)
Respiratory: Wheeze (n), Crackles (n) and Rhonchi (n)
GI: Soft, Non Distended and Non Tender
Neurology: Awake, Alert and No Motor Deficits
Skin: Cyanosis (n) and Jaundice (n)
Labs/Micro/Reports
Lab Data
04/24/24 04:30
04/24/24 04:30
--- NOTE | 2024-04-24 07:50 | W.PN.VS ---
Today's Communication / Plan
-
Patient seen and examined at bedside with Dr. Anurag Meza, below plan reviewed with attending.
Assessment/Plan
-
Assessment: 64-year-old male POD 2 Aorto-iliac stent grafting wtih Endologix AFX device
Plan:
OOB to chair with progression to ambulation as tolerated
Continue dual antiplatelet therapy of clopidogrel 75 mg p.o. daily and aspirin 81 mg p.o. daily
Continue statin therapy
Likely discharge later this afternoon
Subjective Data
-
Date of Service: April 24, 2024
Patient seen and examined at bedside, does endorse moderate to severe right groin pain overnight, that has vastly improved and now reports minimal discomfort and complete resolution of generalized abdominal pain that he was experiencing yesterday.
Denies nausea, vomiting, fever, and chills.
Objective Data
-
Vital Signs
Temp Pulse Resp BP Pulse Ox
98.9 F 69 16 112/70 97
04/24/24 07:00 04/24/24 07:00 04/24/24 04:00 04/24/24 07:00 04/24/24 04:00
Intake and Output
04/23/24 04/24/24 04/25/24
06:59 06:59 06:59
Intake Total 2951.5 / 3031.5 2710 / 2710
Output Total 1864 185 / 1850
Balance 1086.5 / 1016.5 860 / 860
Intake:
Oral fluids 1454 / 1454 830 / 830
IV fluids (Total) 1497.5 / 1577.5 178 / 178
Cardene 187.5 / 187.5
Ns 110 / 110
Nss 1,000 ml @ 80 mls/hr IV . 1200 / 1280 1779
[id number] JESSIE Rx#:[id number]
IV piggybacks 100 / 100
Output:
Urine, Falcon 1864 275 / 275
Urine, Voided 1574 157
Other:
Number of approximated LARGE 1
amounts of urine
Lab Results
04/24/24 04:30
04/24/24 04:30
Calcium 8.9 mg/dl (8.4-10.2) 04/24/24 04:30
Phosphorus Cancelled 04/22/24 15:36
Magnesium Cancelled 04/22/24 15:36
Physical Exam
-
AAOx3, no apparent distress
No tachycardia
No dyspnea
ABD flat, nontender, nondistended
Bilateral groin sites CDI, Exofin glue intact, no evidence of hematoma
Bilateral feet warm, palpable DP pulse
[2024-04-24] MEDS: FARXIGA 10 MG PO (08:05)
[2024-04-24] MEDS: TOPROL XL 25 MG PO (08:05)
[2024-04-24] MEDS: ZESTRIL 10 MG PO (08:08)
[2024-04-24] MEDS: PROTONIX 40 MG PO (08:08)
[2024-04-24] MEDS: PLAVIX 75 MG PO (08:08)
[2024-04-24] MEDS: LOW STRENGTH ASPIRIN 81 MG PO (08:08)
--- NOTE | 2024-04-24 10:06 | PTCARENOTE ---
Pt received in bed @ 0700. AAOx3. Drowsy. States he slept poorly. Pain within acceptable limits. B/L groin sites intact without hematoma. SaO2 97% on room air. Productive harsh cough with green/bee mucous. Sinus tach/Sinus rhythm with frequent PAC's
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 No edema. Peripheral pulses palpable. (+) bowel sounds. Poor appetite. Pt encouraged to order breakfast. Voiding into clear yellow into urinal.
[2024-04-24] MEDS: NOVOLOG FLEXPEN-LOW RESISTANCE SC (10:29)
[2024-04-24 10:32] LABS: Glucose - Point of Care 134 mg/dl (70-99)
--- NOTE | 2024-04-24 10:58 | CM ---
Addendum entered by Barbie Barnes 04/24/24 13:04:
Stable for discharge to home
Plan: discharge to home today with [facility] services; will provide transport home
Original Note:
Met with patient at bedside; patient OOB in chair
Home Health for VN and PT offered; patient agreeable; had no agency preference; agreeable with [facility]; referral sent and acknowledged
Plan: discharge to home when medically stable with home health services; will provide transport home
--- NOTE | 2024-04-24 11:43 | VNURNOTE ---
Home Health Liaison met with patient and at bedside to discuss [facility] nurse/therapy, visits, schedule and homebound status. Patient is agreeable and understands that visits at home will be 2-3 x per week to assess and teach medical management.
[facility] brochure provided with contact information. Patient is aware that [facility] will contact them for start of care in 1-2 days after discharge from .
[facility] referral completed in [facility].
[2024-04-24] MEDS: TYLENOL 650 MG PO (11:46)
--- NOTE | 2024-04-24 12:07 | PTCARENOTE ---
Pt reassessed. 09/01 bilateral groin pain. PRN Tylenol administered. Pt ambulatory. Multiple laps around unit in hallway with supervision.
--- NOTE | 2024-04-24 12:09 | W.[place]-PDMP ---
[place]-PD[place]
-
Checked the [place]- Pres[place] Drug Monitoring Program website, no red flags identified; safe to proceed with prescription.
[2024-04-24] MEDS: AFLURIA (36 mos+) 2024-2025 FORMULA 0.5 ML IM (13:15)
--- NOTE | 2024-04-24 13:38 | PTCARENOTE ---
Discharge instructions ordered and discharge instructions reviewed with patient. No further questions. Flu shot administered. IV sites removed. Pt escorted to 's car by wheelchair.
== END 2024-04-24 13:42 | disposition home health service (06) | DRG 269 ==
LOC: ICU 09:27
PROVIDERS: Nurse Practitioner; Nurse Practitioner Acute Care; ADMITTING PHYSICIAN Surgery Vascular Surgery; CONSULT PHYSICIAN Internal Medicine Critical Care Medicine; FAMILY PHYSICIAN Internal Medicine
PROC: 04V03DZ Restriction of Abdominal Aorta with Intraluminal Device, Percutaneous Approach (ICD-10-PCS; 2024-04-22)
PROC: 04FC3ZZ Fragmentation of Right Common Iliac Artery, Percutaneous Approach (ICD-10-PCS; 2024-04-22)
PROC: 04FD3ZZ Fragmentation of Left Common Iliac Artery, Percutaneous Approach (ICD-10-PCS; 2024-04-22)
PROC: 04FH3ZZ Fragmentation of Right External Iliac Artery, Percutaneous Approach (ICD-10-PCS; 2024-04-22)
PROC: 04FJ3ZZ Fragmentation of Left External Iliac Artery, Percutaneous Approach (ICD-10-PCS; 2024-04-22)
DX: E11.51 Type 2 diabetes mellitus with diabetic peripheral angiopathy without gangrene (principal); T83.84XA Pain due to genitourinary prosthetic devices, implants and grafts, initial encounter; I70.211 Atherosclerosis of native arteries of extremities with intermittent claudication, right leg; I70.8 Atherosclerosis of other arteries; I70.0 Atherosclerosis of aorta; I10 Essential (primary) hypertension; I65.22 Occlusion and stenosis of left carotid artery; I25.10 Atherosclerotic heart disease of native coronary artery without angina pectoris; E78.00 Pure hypercholesterolemia, unspecified; G47.33 Obstructive sleep apnea (adult) (pediatric); H54.61 Unqualified visual loss, right eye, normal vision left eye; J44.9 Chronic obstructive pulmonary disease, unspecified; D64.9 Anemia, unspecified; Y84.6 Urinary catheterization as the cause of abnormal reaction of the patient, or of later complication, without mention of misadventure at the time of the procedure; Z95.5 Presence of coronary angioplasty implant and graft; Z87.891 Personal history of nicotine dependence; Z95.828 Presence of other vascular implants and grafts; Z95.1 Presence of aortocoronary bypass graft; Z79.82 Long term (current) use of aspirin; Z79.02 Long term (current) use of antithrombotics/antiplatelets; Z79.84 Long term (current) use of oral hypoglycemic drugs; Z79.899 Other long term (current) drug therapy; Z86.73 Personal history of transient ischemic attack (TIA), and cerebral infarction without residual deficits
CPT/HCPCS: 36415; 71045; 74174; 80048; 82962; 83605; 83735; 84100; 85025; 85027; 85610; 85730; 86850; 86900; 86901; 90686; 93005; 99406; C1725; C1760; C1769; C1773; C1874; C1894; C2628; C9765; G0008; Q9967

== ENCOUNTER → 2024-05-28 09:22 | Outpatient (REF) | payer OTHER, SELFPAY | LOC: RAD 09:22 | PROVIDERS: ATTENDING PHYSICIAN Physician Assistant; FAMILY PHYSICIAN Internal Medicine | DX: I73.9 Peripheral vascular disease, unspecified (principal) | CPT/HCPCS: 93922 ==

== ENCOUNTER → 2024-11-18 16:00 | Outpatient (REF) | payer OTHER, SELFPAY | LOC: HWRAD 16:00 | PROVIDERS: ATTENDING PHYSICIAN Internal Medicine | DX: R29.6 Repeated falls (principal); R07.81 Pleurodynia | CPT/HCPCS: 71101 ==

== ENCOUNTER → 2024-12-08 14:03 | Outpatient (REF) | payer OTHER, SELFPAY | LOC: DHVS 14:03 | PROVIDERS: ATTENDING PHYSICIAN Surgery Vascular Surgery; FAMILY PHYSICIAN Internal Medicine | DX: I73.9 Peripheral vascular disease, unspecified (principal) | CPT/HCPCS: 93922 ==

== ENCOUNTER 2025-02-18 06:28 | Day surgery (SDC) | payer OTHER, SELFPAY ==
[2025-02-18 09:30] LABS: Glucose - Point of Care 162 mg/dl (70-99)
== END 2025-02-18 12:40 | disposition home or self-care (01) ==
LOC: GI 06:28
PROVIDERS: ATTENDING PHYSICIAN Student in an Organized Health Care Education/Training Program
DX: D50.9 Iron deficiency anemia, unspecified (principal); K57.30 Diverticulosis of large intestine without perforation or abscess without bleeding; K22.89 Other specified disease of esophagus; K31.89 Other diseases of stomach and duodenum; D12.2 Benign neoplasm of ascending colon; D12.3 Benign neoplasm of transverse colon; K63.5 Polyp of colon; K62.1 Rectal polyp; K31.A14 Gastric intestinal metaplasia without dysplasia, involving the cardia; D17.5 Benign lipomatous neoplasm of intra-abdominal organs
CPT/HCPCS: 45385; 45380; 43239; 82962; 88305; 88342